=== PATIENT | female | born 2000 | race Caucasian/White ===

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

== ENCOUNTER → 2022-07-25 | Outpatient (CLI) | payer MEDICAID ==
--- NOTE | 2022-07-25 12:22 | NM ---
EXAMINATION TYPE: SC gastric emptying static DATE OF EXAM: 07/25/2022 COMPARISON: Prior nuclear medicine gastric emptying study March 18, 2021 HISTORY: Gastroparesis. Following administration of 1.7 mCi Tc 99m Sulfur Colloid with 4 OUNCES OF EGGS, 1 PIECE OF TOAST WIT H JELLY & 4 OUNCES OF WATER, projection images of the abdomen were obtained 10 minutes post ingestion . Patient Emptying Values 1 Hour 15 % 2 Hours 55 % 3 Hours 86 % 4 Hours 97 % IMPRESSION: No scintigraphic evidence for gastroparesis. No significant change from prior. Gastric emptying normal percentage values: 30 minutes: <70% of retention (> 30% emptying) suggests abnormally fast emptying. 60 minutes: <90% retention (>10% emptying) is normal; less than 30% retention (>70% emptying) suggest s abnormally rapid emptying. 90 minutes: <65% retention (> 35% emptying) is normal. 120 minutes: <60% retention (> 40% emptying) is normal. 180 minutes: <30% retention (> 70% emptying) is normal. Gastric emptying T-1/2: Solid: The normal range is 60-105 minutes Liquid only: Normal range is 10-45 minutes. Liquid only-children: At 60 minutes, normal range is 44-58 % . Liquid only-infants: At 60 minutes, normal range is 32-64 %. Additional references: Gastric Emptying Scintigraphy http://[email or web address]
== END | disposition home or self-care (01) ==
LOC: RADNMMAIN 06:46
PROVIDERS: ATTEND Internal Medicine
DX: R10.84 Generalized abdominal pain (principal); K31.84 Gastroparesis
CPT/HCPCS: 78264; A9541

== ENCOUNTER 2023-07-11 17:39 | Inpatient (IN) | payer MEDICAID ==
[2023-07-11] MEDS ORDERED: METOCLOPRAMIDE 5 MG/ML 2 ML VIAL IVP STA (18:36)
[2023-07-11] MEDS ORDERED: SODIUM CHLORIDE 0.9% 1,000 ML IV STA (18:36)
--- NOTE | 2023-07-11 18:39 | ED ---
Headache HPI - General Source: patient, family, RN notes reviewed Mode of arrival: ambulatory Limitations: no limitations <Delilah Martin - Last Filed: 07/11/23 22:08> <Beni Abdullahi - Last Filed: 07/11/23 22:15> - General Chief Complaint: Headache Stated Complaint: headache,vomiting Time Seen by Provider: 07/11/23 18:22 - History of Present Illness Initial Comments: Patient is a 23-year-old female presented ER with chief complaint of headache. Patient has a past medical history significant for small fiber neuropathy for which she's just started IVIG infusions. Patient states her first loading dose of IVIG was yesterday. Her second loading dose was today. Patient states after her first treatment she had chest pain that quickly resovled. She states at about 1:30 this morning she started having this headache. She does endorse blurred vision and neck tenderness. She also states she is nauseous but denies any vomiting. Patient states she is also having mild abdominal pain but her abdomen is always hurting her. Patient denies any fevers, chills, night sweats, short of breath, chest pain. (Delilah Martin) - Related Data Home Medications Medication Instructions Recorded Confirmed medroxyPROGESTERone [Depo-Provera] 150 mg IM Q84D 06/25/20 07/11/23 Ivabradine HCl [Corlanor] 5 mg PO BID 01/15/23 07/11/23 Montelukast Sodium 10 mg PO HS 01/15/23 07/11/23 Omeprazole [PriLOSEC] 20 mg PO BID 01/15/23 07/11/23 amLODIPine BESYLATE 2.5 mg PO HS 01/15/23 07/11/23 Copper 2mg Tablet 1 tab PO DAILY 07/11/23 07/11/23 Cyanocobalamin (Vitamin B-12) 1,000 mcg PO DAILY 07/11/23 07/11/23 [Vitamin B-12] OXcarbazepine [Trileptal] 150 mg PO DAILY 07/11/23 07/11/23 Allergies Allergy/AdvReac Type Severity Reaction Status Date / Time adhesive tape Allergy Rash/Hives Verified 07/11/23 22:09 Review of Systems ROS Other: All systems not noted in ROS Statement are negative. <Delilah Martin - Last Filed: 07/11/23 22:08> ROS Other: All systems not noted in ROS Statement are negative. <Beni Abdullahi Trevon - Last Filed: 07/11/23 22:15> ROS Statement: Those systems with pertinent positive or pertinent negative responses have been documented in the HPI. Past Medical History Past Medical History: No Reported History Additional Past Medical History / Comment(s): OVARIAN CYST, RECENT RAPID HEART RATE, SOB, CHEST PAIN. POTS SYNDROME, fibroneuropathy History of Any Multi-Drug Resistant Organisms: None Reported Past Surgical History: Adenoidectomy, Orthopedic Surgery Additional Past Surgical History / Comment(s): left knee SX Past Anesthesia/Blood Transfusion Reactions: No Reported Reaction, Family History of Problems w/ Anesthesia Additional Past Anesthesia/Blood Transfusion Reaction / Comment(s): MOM HAS PONV Past Psychological History: No Psychological Hx Reported Smoking Status: Never smoker - Past Family History Mother Family Medical History: No Reported History Additional Family Medical History / Comment(s): Hishimotos Father Family Medical History: Diabetes Mellitus, Hypertension <Delilah Martin - Last Filed: 07/11/23 22:08> General Exam Limitations: no limitations General appearance: alert, in no apparent distress Head exam: Present: atraumatic, normocephalic, normal inspection Eye exam: Present: normal appearance, PERRL, EOMI. Absent: scleral icterus, conjunctival injection, periorbital swelling Pupils: Present: normal accommodation ENT exam: Present: normal exam, mucous membranes moist, TM's normal bilaterally Neck exam: Present: normal inspection, tenderness Respiratory exam: Present: normal lung sounds bilaterally. Absent: respiratory distress, wheezes, rales, rhonchi, stridor Cardiovascular Exam: Present: regular rate, normal rhythm, normal heart sounds. Absent: systolic murmur, diastolic murmur, rubs, gallop, clicks GI/Abdominal exam: Present: soft, normal bowel sounds. Absent: distended, tenderness, guarding, rebound, rigid Neurological exam: Present: alert, oriented X3, CN II-XII intact Psychiatric exam: Present: normal affect, normal mood Skin exam: Present: warm, dry, intact, normal color. Absent: rash <Delilah Martin - Last Filed: 07/11/23 22:08> Course <Beni Abdullahi - Last Filed: 07/11/23 22:15> Vital Signs 07/11/23 07/11/23 18:16 21:00 Temperature 98.3 F Pulse Rate 120 H 92 Respiratory 22 16 Rate Blood Pressure 120/77 108/58 O2 Sat by Pulse 98 97 Oximetry - Reevaluation(s) Reevaluation #1: 07/11/23 22:15 Patient evaluated, continues to have headache although she is well-appearing with stable vitals. She will be admitted for IV hydration and symptom control. Case discussed with Dr. Clifford who will admit. (Beni Abdullahi) Medical Decision Making - Lab Data Result diagrams: 07/11/23 18:53 07/11/23 18:53 <Delilah Martin - Last Filed: 07/11/23 22:08> - Lab Data Result diagrams: 07/11/23 18:53 07/11/23 18:53 <Beni Abdullahi - Last Filed: 07/11/23 22:15> - Medical Decision Making Was pt. sent in by a medical professional or institution (, [facility], TRANSPORT ENGINEER, urgent care, hospital, or penitentiary...) When possible be specific @ -[No] Did you speak to anyone other than the patient for history (EMS, parent, family, police, friend...)? What history was obtained from this source @ -[Family Did you review nursing and triage notes (agree or disagree)? Why? @ -[I reviewed and agree with nursing and triage notes] Were old charts reviewed (outside hosp., previous admission, EMS record, old EKG, old radiological studies, urgent care reports/EKG's, penitentiary records)? Report findings @ -[No old charts were reviewed] Differential Diagnosis (chest pain, altered mental status, abdominal pain women, abdominal pain men, vaginal bleeding, weakness, fever, dyspnea, syncope, headache, dizziness, GI bleed, back pain, seizure, CVA, palpatations, mental health, musculoskeletal)? @ -[Differential Headache:Migraine, tension, cluster, carbon monoxide, central venous thrombosis, pension karma temporal arteritis, acute closure glaucoma, intercranial hemorrhage, mastoiditis, sinusitis, head injury, this is not meant to be an all-inclusive list. EKG interpreted by me (3pts min.). @ -[None X-rays interpreted by me (1pt min.). @ -[None done] CT interpreted by me (1pt min.). @ -[None done] U/S interpreted by me (1pt. min.). @ -[None done] What testing was considered but not performed or refused? (CT, X-rays, U/S, labs)? Why? @ -[None] What meds were considered but not given or refused? Why? @ -[None] Did you discuss the management of the patient with other professionals (professionals i.e. Dr., PA, TRANSPORT ENGINEER, lab, RT, psych nurse, social media specialist, vector control assistant, teacher, promotions officer, caser in)? Give summary @ -[Yes, [facility] for admission. Was smoking cessation discussed for >3mins.? @ -[No] Was critical care preformed (if so, how long)? @ -[No] Were there social determinants of health that impacted care today? How? (Homelessness, low income, unemployed, alcoholism, drug addiction, transportation, low edu. Level, literacy, decrease access to med. care, snf, rehab)? @ -[No] Was there de-escalation of care discussed even if they declined (Discuss DNR or withdrawal of care, Hospice)? DNR status @ -[No] What co-morbidities impacted this encounter? (DM, HTN, Smoking, COPD, CAD, Cancer, CVA, ARF, Chemo, Hep., AIDS, mental health diagnosis, sleep apnea, morbid obesity)? @ -[Small fiber neuropathy on IVIG infusions Was patient admitted / discharged? Hospital course, mention meds given and route, prescriptions, significant lab abnormalities, going to OR and other pertinent info. @ -[Admitted. Patient's vital signs remained stable. Patient received 1 L of IV fluids and 5 mg of IV Reglan for symptom control prior to labs. Laboratory studies were unimpressive. UA was unimpressive with a negative hCG. Patient then received IV Toradol. Patient states the Toradol not touch her pain is still rating it a 9 out of 10. Patient then received 0.5 IV Dilaudid and IV Zofran. Patient states that Dilaudid helped for about 30 seconds and then pain returned. Dr. Abdullahi discussed with the patient options of disposition. Patient decided for admission for pain control and IV fluids. Patient will be admitted to observation for intractable headache. Undiagnosed new problem with uncertain prognosis? @ -[No] Drug Therapy requiring intensive monitoring for toxicity (Heparin, Nitro, Insulin, Cardizem)? @ -[No] Were any procedures done? @ -[No] Diagnosis/symptom? @ -[Intractable headache Acute, or Chronic, or Acute on Chronic? @ -[Acute] Uncomplicated (without systemic symptoms) or Complicated (systemic symptoms)? @ -[Uncomplicated] Side effects of treatment? @ -[No] Exacerbation, Progression, or Severe Exacerbation? @ -[No] Poses a threat to life or bodily function? How? (Chest pain, USA, MS, pneumonia, PE, COPD, DKA, ARF, appy, cholecystitis, CVA, Diverticulitis, Homicidal, Suicidal, threat to staff... and all critical care pts) @ -[No] (Delilah Martin) - Lab Data Lab Results 07/11/23 07/11/23 07/11/23 Range/Units 18:53 18:53 18:53 WBC 11.3 H (3.8-10.6) k/uL RBC 4.84 (3.80-5.40) m/uL Hgb 14.5 (11.4-16.0) gm/dL Hct 43.3 (34.0-46.0) % MCV 89.6 (80.0-100.0) fL MCH 30.1 (25.0-35.0) pg MCHC 33.6 (31.0-37.0) g/dL RDW 12.6 (11.5-15.5) % Plt Count 255 (150-450) k/uL MPV 7.8 Sodium 144 (137-145) mmol/L Potassium 4.2 (3.5-5.1) mmol/L Chloride 111 H (98-107) mmol/L Carbon Dioxide 20 L (22-30) mmol/L Anion Gap 13 mmol/L BUN 12 (7-17) mg/dL Creatinine 0.79 (0.52-1.04) mg/dL Est GFR (CKD-EPI)AfAm >90 (>60 ml/min/1.73 sqM) Est GFR (CKD-EPI)NonAf >90 (>60 ml/min/1.73 sqM) Glucose 125 H (74-99) mg/dL Calcium 10.0 (8.4-10.2) mg/dL Total Bilirubin 1.1 (0.2-1.3) mg/dL AST 28 (14-36) U/L ALT 25 (4-34) U/L Alkaline Phosphatase 71 (38-126) U/L Total Protein 11.1 H (6.3-8.2) g/dL Albumin 4.9 (3.5-5.0) g/dL Urine Color Urine Appearance (Clear) Urine pH (5.0-8.0) Ur Specific [place] (1.001-1.035) Urine Protein (Negative) Urine Glucose (UA) (Negative) Urine Ketones (Negative) Urine Blood (Negative) Urine Nitrite (Negative) Urine Bilirubin (Negative) Urine Urobilinogen (<2.0) mg/dL Ur Leukocyte Esterase (Negative) Urine HCG, Qual (Not Detectd) Influenza Type A (PCR) Not Detected (Not Detectd) Influenza Type B (PCR) Not Detected (Not Detectd) RSV (PCR) Not Detected (Not Detectd) SARS-CoV-2 (PCR) Not Detected (Not Detectd) 07/11/23 07/11/23 Range/Units 18:57 18:57 WBC (3.8-10.6) k/uL RBC (3.80-5.40) m/uL Hgb (11.4-16.0) gm/dL Hct (34.0-46.0) % MCV (80.0-100.0) fL MCH (25.0-35.0) pg MCHC (31.0-37.0) g/dL RDW (11.5-15.5) % Plt Count (150-450) k/uL MPV Sodium (137-145) mmol/L Potassium (3.5-5.1) mmol/L Chloride (98-107) mmol/L Carbon Dioxide (22-30) mmol/L Anion Gap mmol/L BUN (7-17) mg/dL Creatinine (0.52-1.04) mg/dL Est GFR (CKD-EPI)AfAm (>60 ml/min/1.73 sqM) Est GFR (CKD-EPI)NonAf (>60 ml/min/1.73 sqM) Glucose (74-99) mg/dL Calcium (8.4-10.2) mg/dL Total Bilirubin (0.2-1.3) mg/dL AST (14-36) U/L ALT (4-34) U/L Alkaline Phosphatase (38-126) U/L Total Protein (6.3-8.2) g/dL Albumin (3.5-5.0) g/dL Urine Color Yellow Urine Appearance Clear (Clear) Urine pH 6.0 (5.0-8.0) Ur Specific [place] 1.031 (1.001-1.035) Urine Protein Trace H (Negative) Urine Glucose (UA) Negative (Negative) Urine Ketones Negative (Negative) Urine Blood Negative (Negative) Urine Nitrite Negative (Negative) Urine Bilirubin Negative (Negative) Urine Urobilinogen <2.0 (<2.0) mg/dL Ur Leukocyte Esterase Negative (Negative) Urine HCG, Qual Not Detected (Not Detectd) Influenza Type A (PCR) (Not Detectd) Influenza Type B (PCR) (Not Detectd) RSV (PCR) (Not Detectd) SARS-CoV-2 (PCR) (Not Detectd) Disposition Time of Disposition: 22:06 <Delilah Martin - Last Filed: 07/11/23 22:08> <Beni Abdullahi - Last Filed: 07/11/23 22:15> Clinical Impression: Intractable headache Disposition: ADMITTED IP TO THIS [facility] Condition: Stable Referrals: Alber Mohamud MD [Primary Care Provider] - 1-2 days
[2023-07-11 19:06] LABS: HCT 43.3 % (34.0-46.0); HGB 14.5 gm/dL (11.4-16.0); MCH 30.1 pg (25.0-35.0); MCHC 33.6 g/dL (31.0-37.0); MCV 89.6 fL (80.0-100.0); Mean Platelet Volume 7.8; Platelet Count 255 k/uL (150-450); RBC 4.84 m/uL (3.80-5.40); RDW 12.6 % (11.5-15.5); WBC 11.3 k/uL (3.8-10.6)
[2023-07-11 19:21] LABS: ALT 25 U/L (4-34); AST 28 U/L (14-36); African American GFR (CKD) >90 (>60 ml/min/1.73 sqM); Albumin 4.9 g/dL (3.5-5.0); Alkaline Phosphatase 71 U/L (38-126); Anion Gap 13 mmol/L; Blood Urea Nitrogen 12 mg/dL (7-17); Carbon Dioxide 20 mmol/L (22-30); Chloride 111 mmol/L (98-107); Glucose 125 mg/dL (74-99); Non-African American GFR(CKD) >90 (>60 ml/min/1.73 sqM); Potassium 4.2 mmol/L (3.5-5.1); Sodium 144 mmol/L (137-145); Total Bilirubin 1.1 mg/dL (0.2-1.3)
[2023-07-11 19:30] LABS: Appearance,Urine Clear (Clear); Bilirubin,Urine Negative (Negative); Blood,Urine Negative (Negative); Color,Urine Yellow; Glucose,Urine (UA) Negative (Negative); Ketones,Urine Negative (Negative); Leukocyte Esterase,Urine Negative (Negative); Nitrite,Urine Negative (Negative); Protein,Urine Trace (Negative); Specific Gravity,Urine 1.031 (1.001-1.035); Urobilinogen,Urine <2.0 mg/dL (<2.0)
[2023-07-11] MEDS ORDERED: KETOROLAC 15 MG/ML 1 ML VIAL IVP STA ×2 (19:32→19:46)
[2023-07-11 19:45] LABS: Total Protein 11.1 g/dL (6.3-8.2)
[2023-07-11] MEDS ORDERED: HYDROmorphone 0.5 MG/0.5 ML SYRINGE IVP STA (20:53)
[2023-07-11] MEDS ORDERED: ONDANSETRON 4 MG/2 ML VIAL IVP STA (20:53)
[2023-07-11] MEDS ORDERED: ONDANSETRON 4 MG/2 ML VIAL IVP PRN (21:57)
[2023-07-11] MEDS ORDERED: NALOXONE 0.4 MG/ML 1 ML VIAL IV PRN (21:57)
[2023-07-11] MEDS: SODIUM CHLORIDE 0.9% 1,000 ML IV SCH (22:41)
[2023-07-11] MEDS: NON FORMULARY DRUG (Ivabradine Hcl [Corlanor] 5 MG Tablet) PO SCH (23:49)
[2023-07-11] MEDS: PANTOPRAZOLE 40 MG TABLET PO SCH (23:49)
[2023-07-11] MEDS: MONTELUKAST 10 MG TAB PO SCH (23:49)
[2023-07-11] MEDS: HYDROmorphone 0.5 MG/0.5 ML SYRINGE IVP PRN (23:58)
[2023-07-12] MEDS: amLODIPine 2.5 MG TAB PO SCH ×2 (00:30→20:50)
[2023-07-12] MEDS: HYDROmorphone 0.5 MG/0.5 ML SYRINGE IVP PRN ×3 (03:04→11:41)
[2023-07-12] MEDS: CYANOCOBALAMIN 500 MCG TAB PO SCH (08:30)
[2023-07-12] MEDS: PANTOPRAZOLE 40 MG TABLET PO SCH ×2 (08:30→20:49)
[2023-07-12] MEDS: NON FORMULARY DRUG (Ivabradine Hcl [Corlanor] 5 MG Tablet) PO SCH ×2 (08:31→20:51)
[2023-07-12] MEDS: OXcarbazepine 150 MG TAB PO SCH (08:31)
[2023-07-12] MEDS: SODIUM CHLORIDE 0.9% 1,000 ML IV SCH ×3 (08:33→18:17)
[2023-07-12] MEDS ORDERED: traMADol 50 MG TAB PO PRN (08:50)
[2023-07-12] MEDS ORDERED: NALOXONE 0.4 MG/ML 1 ML VIAL IV PRN (08:50)
[2023-07-12] MEDS ORDERED: ACETAMINOPHEN TAB 325 MG TAB PO PRN (08:50)
[2023-07-12] MEDS ORDERED: COPPER 2 MG PO SCH (09:00)
[2023-07-12] MEDS ORDERED: diphenhydrAMINE 50 MG/ML 1 ML VIAL IVP STA (09:43)
--- NOTE | 2023-07-12 10:49 | CT ---
EXAMINATION TYPE: CT brain wo con CT DLP: mGycm, Automated exposure control for dose reduction was used. DATE OF EXAM: 07/12/2023 10:38 AM COMPARISON: None. CLINICAL INDICATION:Female, 23 years old with history of intractable headache. TECHNIQUE: Brain: Axial CT images of the brain were obtained with coronal and sagittal reformats created and rev iewed. Contrast used: None. Oral contrast used: None. FINDINGS: Brain: Extra-axial spaces: No abnormal extra-axial fluid collections. Ventricular system: Within normal limits Cerebral parenchyma: No acute intraparenchymal hemorrhage or mass effect. The khoury-white junction is well differentiated. Cerebellum: Unremarkable. Mass effect: No evidence of midline shift. Intracranial vasculature: unremarkable Soft tissues: Normal. Calvarium/osseous structures: No depressed skull fracture. Paranasal sinuses and mastoid air cells: Mild scattered paranasal sinus disease. Visualized orbits: Orbital contents are intact. IMPRESSION: No acute intracranial process.
--- NOTE | 2023-07-12 10:53 | CT ---
EXAMINATION TYPE: CT angio head neck CT DLP: mGycm, Automated exposure control for dose reduction was used. DATE OF EXAM: 07/12/2023 10:39 AM COMPARISON: None.. CLINICAL INDICATION:Female, 23 years old with history of dissection rule out; PHH, headache TECHNIQUE: Axially acquired helical CT angiogram of the head and neck was obtained with contrast. Axi al images are supplemented with 3D reconstructions which were post-processed at an independent workst atmission hospital. NASCET criteria used. Contrast used:65 mL of Isovue 300 with IV Contrast, Oral contrast used: None. FINDINGS: CTA HEAD: No evidence of acute intracranial hemorrhage, mass effect, or midline shift. The ventricles, sulci, a nd cisterns are unremarkable. The visualized portions of the internal carotid arteries, middle cerebral arteries, anterior cerebral arteries, and posterior cerebral arteries are patent. The basilar and vertebral arteries are patent. CTA NECK: Right Carotid System: The common carotid artery and external carotid artery are patent. The carotid bifurcation demonstrate s no evidence of hemodynamically significant stenosis. The remaining portions of the internal carotid artery demonstrate normal size without significant narrowing. Left Carotid System: The common carotid artery and external carotid artery are patent. The carotid bifurcation demonstrate s no evidence of hemodynamically significant stenosis. The remaining portions of the internal carotid artery demonstrate normal size without significant narrowing. Vertebral arteries are patent without evidence hemodynamically significant stenosis. There is a three-vessel aortic arch. The origins of the great vessels are patent. No evidence of hemo dynamically significant stenosis. Upper thorax: Unremarkable. IMPRESSION: 1. No evidence of dissection of the cervical internal carotid arteries or vertebral arteries or any e vidence of significant stenosis at the carotid bifurcations. 2. No evidence of intracranial high-grade stenosis or intracranial aneurysm.
[2023-07-12 12:14] LABS: HCT 38.1 % (34.0-46.0); HGB 12.8 gm/dL (11.4-16.0); MCH 30.9 pg (25.0-35.0); MCHC 33.7 g/dL (31.0-37.0); MCV 91.7 fL (80.0-100.0); Mean Platelet Volume 7.4; Platelet Count 205 k/uL (150-450); RBC 4.16 m/uL (3.80-5.40); RDW 12.5 % (11.5-15.5); WBC 7.7 k/uL (3.8-10.6)
[2023-07-12 12:26] LABS: African American GFR (CKD) >90 (>60 ml/min/1.73 sqM); Anion Gap 11 mmol/L; Blood Urea Nitrogen 5 mg/dL (7-17); Calcium 8.9 mg/dL (8.4-10.2); Carbon Dioxide 19 mmol/L (22-30); Chloride 111 mmol/L (98-107); Glucose 89 mg/dL (74-99); Non-African American GFR(CKD) >90 (>60 ml/min/1.73 sqM); Potassium 3.8 mmol/L (3.5-5.1); Sodium 141 mmol/L (137-145)
--- NOTE | 2023-07-12 12:57 | P.HPIM ---
History of Present Illness H&P Date: 07/12/23 Chief Complaint: Intractable headache * 23-year-old patient with past medical history significant for IBSC, [place], regional pain syndrome, history of gastritis, history of small fiber neuropathy, on IVIG presented to the emergency department with complains of headache that started earlier in the day after patient completed IVIG infusion. This was her second dose of IVIG that was given on 07/11/23. After infusion patient's stated she had chest pain that quickly improved. However later in the day patient started having intractable headache with blurred vision and neck stiffness. This was accompanied with nausea without vomiting. * Workup initiated in ER included basic metabolic panel, which showed WBC count of 11.3, serum chemistry sodium 144 potassium 4.2 carbon dioxide 20 blood glucose 122 and total protein of 11.1, urine protein trace, * Patient tested negative for influenza, [place] virus and RSV * Patient was given a dose of Toradol, Zofran, Reglan * Patient admitted to medical floor for symptom management REVIEW OF SYSTEMS: Headache, nausea, neck pain CONSTITUTIONAL: No fever, no malaise, no fatigue. HEENT: No recent visual problems or hearing problems. Denied any sore throat. CARDIOVASCULAR: No chest pain, orthopnea, PND, no palpitations, no syncope. PULMONARY: No shortness of breath, no cough, no hemoptysis. GASTROINTESTINAL: No diarrhea, no nausea, no vomiting, no abdominal pain. NEUROLOGICAL: No headaches, no weakness, no numbness. HEMATOLOGICAL: Headache, nausea, neck pain GENITOURINARY: Denies any burning micturition, frequency, or urgency. MUSCULOSKELETAL/RHEUMATOLOGICAL: Denies any joint pain, swelling, or any muscle pain. ENDOCRINE: Denies any polyuria or polydipsia. PHYSICAL EXAMINATION: GENERAL: The patient is alert and oriented x3, not in any acute distress. HEENT: Pupils are round and equally reacting to light. EOMI. CARDIOVASCULAR: S1 and S2 present. No murmurs, rubs, or gallops. PULMONARY: Chest is clear to auscultation, no wheezing or crackles. ABDOMEN: Soft, nontender, nondistended, normoactive bowel sounds. No palpable organomegaly. MUSCULOSKELETAL: No joint swelling or deformity. EXTREMITIES: No cyanosis, clubbing, or pedal edema. NEUROLOGICAL: Gross neurological examination did not reveal any focal deficits. Past Medical History Past Medical History: No Reported History Additional Past Medical History / Comment(s): OVARIAN CYST, RECENT RAPID HEART RATE, SOB, CHEST PAIN. POTS SYNDROME, fibroneuropathy, IVIG tx newly started 07/10/23 History of Any Multi-Drug Resistant Organisms: None Reported Past Surgical History: Adenoidectomy, Cholecystectomy, Orthopedic Surgery Additional Past Surgical History / Comment(s): left knee SX Past Anesthesia/Blood Transfusion Reactions: No Reported Reaction, Family History of Problems w/ Anesthesia Additional Past Anesthesia/Blood Transfusion Reaction / Comment(s): MOM HAS PONV Past Psychological History: Anxiety Smoking Status: Never smoker Past Alcohol Use History: None Reported Past Drug Use History: None Reported - Past Family History Mother Family Medical History: No Reported History Additional Family Medical History / Comment(s): Hishimotos Father Family Medical History: Diabetes Mellitus, Hypertension Medications and Allergies Home Medications Medication Instructions Recorded Confirmed Type medroxyPROGESTERone [Depo-Provera] 150 mg IM Q84D 06/25/20 07/11/23 History Ivabradine HCl [Corlanor] 5 mg PO BID 01/15/23 07/11/23 History Montelukast Sodium 10 mg PO HS 01/15/23 07/11/23 History Omeprazole [PriLOSEC] 20 mg PO BID 01/15/23 07/11/23 History amLODIPine BESYLATE 2.5 mg PO HS 01/15/23 07/11/23 History Copper 2mg Tablet 1 tab PO DAILY 07/11/23 07/11/23 History Cyanocobalamin (Vitamin B-12) 1,000 mcg PO DAILY 07/11/23 07/11/23 History [Vitamin B-12] OXcarbazepine [Trileptal] 150 mg PO DAILY 07/11/23 07/11/23 History Allergies Allergy/AdvReac Type Severity Reaction Status Date / Time adhesive tape Allergy Rash/Hives Verified 07/11/23 22:09 Physical Exam Vitals: Vital Signs Temp Pulse Pulse Resp BP BP Pulse Ox 07/12/23 07:00 98.3 F 83 16 99/65 96 07/12/23 03:37 98.9 F 99 16 106/65 97 07/11/23 23:16 98.2 F 83 15 114/69 98 07/11/23 22:55 97.3 F L 07/11/23 22:00 70 16 108/58 07/11/23 21:00 92 16 108/58 97 07/11/23 19:00 116/75 07/11/23 18:38 98 07/11/23 18:16 98.3 F 120 H 22 120/77 98 Intake and Output 07/11/23 07/12/23 07/12/23 22:59 06:59 14:59 Other: # Voids 1 Weight 56.699 kg 56.699 kg Results CBC & Chem 7: 07/12/23 11:43 07/12/23 11:43 Labs: Abnormal Lab Results - Last 24 Hours (Table) 07/11/23 07/11/23 07/11/23 Range/Units 18:53 18:53 18:57 WBC 11.3 H (3.8-10.6) k/uL Chloride 111 H (98-107) mmol/L Carbon Dioxide 20 L (22-30) mmol/L Glucose 125 H (74-99) mg/dL Total Protein 11.1 H (6.3-8.2) g/dL Urine Protein Trace H (Negative) Thrombosis Risk Factor Assmnt - DVT/VTE Prophylaxis DVT/VTE Prophylaxis: Mechanical Prophylaxis ordered - Choose All That Apply Any of the Below Risk Factors Present?: Yes Each Factor Represents 1 point: Oral contraceptives or hormone replacement therapy Other Risk Factors: No Other congenital or acquired thrombophilia - If yes, enter type in comment: No Thrombosis Risk Factor Assessment Total Risk Factor Score: 1 Thrombosis Risk Factor Assessment Level: Low Risk Assessment and Plan Assessment: Assessment and plan History of small fiber neuropathy on IVIG Intractable headache post IVIG infusion Hypertension History of pots History of IBS History of depression * In regards to intractable headache after IVIG, continue with symptomatic management, if no improvement we'll get CT head, CT angina head and neck, neurology consulted * In regards to hypertension continue amlodipine * In regards to history of depression continue Trileptal * Follow-up CBC, CRP, ESR basic metabolic panel ordered * CODE STATUS is full code
[2023-07-12] MEDS: BUTALB/APAP/CAFF 50-325-40MG TAB PO PRN ×2 (13:23→20:49)
[2023-07-12] MEDS: diphenhydrAMINE 25 MG CAP PO PRN ×2 (13:32→20:49)
[2023-07-12] MEDS: ONDANSETRON 4 MG/2 ML VIAL IVP PRN (15:30)
[2023-07-12] MEDS: MORPHINE SULFATE 2 MG/ML SYRINGE IVP PRN (18:09)
[2023-07-12] MEDS: HEPARIN SODIUM,PORCINE 5,000 UNIT/ML 1 ML VIAL SQ SCH (20:48)
[2023-07-12] MEDS: MONTELUKAST 10 MG TAB PO SCH (20:50)
[2023-07-13] MEDS: SODIUM CHLORIDE 0.9% 1,000 ML IV SCH ×2 (03:50→09:08)
[2023-07-13] MEDS: ONDANSETRON 4 MG/2 ML VIAL IVP PRN ×2 (03:56→14:03)
[2023-07-13] MEDS: MORPHINE SULFATE 2 MG/ML SYRINGE IVP PRN ×2 (03:56→09:30)
[2023-07-13 07:29] LABS: Erythrocyte Sedimentation Rate 38 mm/Hr (0-20)
[2023-07-13] MEDS: CYANOCOBALAMIN 500 MCG TAB PO SCH (09:10)
[2023-07-13] MEDS: HEPARIN SODIUM,PORCINE 5,000 UNIT/ML 1 ML VIAL SQ SCH ×3 (09:11→20:35)
[2023-07-13] MEDS: PANTOPRAZOLE 40 MG TABLET PO SCH ×2 (09:11→20:33)
[2023-07-13] MEDS: OXcarbazepine 150 MG TAB PO SCH (09:11)
[2023-07-13] MEDS: NON FORMULARY DRUG (Ivabradine Hcl [Corlanor] 5 MG Tablet) PO SCH ×2 (09:11→20:34)
--- NOTE | 2023-07-13 09:33 | P.CNNES ---
History of Present Illness Consult date: 07/12/23 Requesting physician: Fortunato Gomez Reason for Consult: intractable headache post IVIG History of Present Illness: Patient is a 23-year-old female who has been diagnosed with small fiber neuropathy by a neurologist Dr. Yang at [facility], for which she was receiving the loading dose of IVIG 120 g over a period of 3 days. She received the first dose on Thursday, and the second dose on Thursday, which is yes terday. She did fine during the first dose of treatment. That night between Thursday and Thursday, she woke in the middle of night with a bad headache, neck stiffness, nausea, felt will pass out. It was a 10/10 headache and she started crying. She took Tylenol/Motrin and felt a little better before her next infusion was started on Thursday. She did relatively fine during the transfusion, which itself lasted for about 3-1/2 hours. About 4 hours after completion of infusion, the headache came back, and got worse as the day went on. The headache involves the back of the head, sides and the neck with radiation to the back with some neck stiffness. She got concerned, therefore decided to come to the ER and arrived yesterday at 5:39 PM. Vital signs arrival blood pressure 120/77, pulse rate 120, temperature 98.3. She has been afebrile. Blood tests shows WBC 11.3, which has come down to 7.7. Hemoglobin and platelets are normal. Electrolytes, renal functions are normal, hepatic panel normal. CRP is elevated 11.1 and ESR 38. UA negative, influenza, RSV and coronal virus PCR negative. CT head was performed, which showed no acute intracranial process. There is mild scattered paranasal sinus disease. I personally reviewed CT head, and agree with the findings. Patient so far has received Dilaudid, Toradol, which did not help. She tried Fioricet 1 tablet, which did not work. She is now scheduled for tramadol. At present she complains of headache 9/10, with photophobia, phonophobia, with nausea but no vomiting. The back and side of the head hurts. It is a throbbing headache. Patient denies diabetes. Patient has developed redness, swelling in her knees, burning tingling and numbness in the knees, feet and toes. The symptoms have been present for "a long time". At first she was considered as complex regional pain syndrome. She started seeing a pain specialist, who referred her to a neurologist, and after skin biopsy, that was positive, she was also found to have some antibodies, which she describes as Plexin D1 antibodies therefore was diagnosed with small fiber neuropathy. She has IgM vs TS-HDS. Her EMG was normal, which is expected with small fiber neuropathy. Patient has history of periodic headaches, which appears migraines that occurs about once a week involves the bifrontal temporal region, with light sensitivity with without a noise sensitivity. She denies any nausea vomiting. The migraine is about 3-4/10, goes away after she takes Tylenol or Motrin within 2 hours. These headaches were never as bad as she experienced in the last 2 days. Patient is currently on Depo shot, and the last one she received was in May 2023. She also has been diagnosed with pots syndrome. Patient denies any tobacco use, drinks alcohol about once or twice a month, not a heavy drinker. No other substance abuse. Review of Systems Constitutional: Denies chills (Feels warm), Denies fever Eyes: bilateral blurred vision, denies diplopia, denies pain Ears: deny: decreased hearing, ear discharge Ears, nose, mouth and throat: Reports headache, Reports nasal congestion, Reports sinus pain, Reports sinus pressure Cardiovascular: Reports lightheadedness, Denies chest pain, Denies shortness of breath Respiratory: Denies cough, Denies excessive sputum Gastrointestinal: Reports nausea, Denies abdominal pain, Denies diarrhea, Denies vomiting Genitourinary: Denies dysuria, Denies hematuria, Denies urge incontinence, Denies urgency Musculoskeletal: Reports neck pain, Reports neck stiffness, Denies low back pain Integumentary: Denies pruritus, Denies rash Neurological: Reports as per HPI Psychiatric: Denies anxiety, Denies depression Endocrine: Reports fatigue, Denies weight change Hematologic/Lymphatic: Reports easy bruising, Denies easy bleeding Past Medical History Past Medical History: No Reported History Additional Past Medical History / Comment(s): OVARIAN CYST, RECENT RAPID HEART RATE, SOB, CHEST PAIN. POTS SYNDROME, fibroneuropathy, IVIG tx newly started 07/10/23 History of Any Multi-Drug Resistant Organisms: None Reported Past Surgical History: Adenoidectomy, Cholecystectomy, Orthopedic Surgery Additional Past Surgical History / Comment(s): left knee SX Past Anesthesia/Blood Transfusion Reactions: No Reported Reaction, Family History of Problems w/ Anesthesia Additional Past Anesthesia/Blood Transfusion Reaction / Comment(s): MOM HAS PONV Past Psychological History: Anxiety Smoking Status: Never smoker Past Alcohol Use History: None Reported Past Drug Use History: None Reported - Past Family History Mother Family Medical History: No Reported History Additional Family Medical History / Comment(s): Hishimotos Father Family Medical History: Diabetes Mellitus, Hypertension Medications and Allergies Home Medications Medication Instructions Recorded Confirmed Type medroxyPROGESTERone [Depo-Provera] 150 mg IM Q84D 06/25/20 07/11/23 History Ivabradine HCl [Corlanor] 5 mg PO BID 01/15/23 07/11/23 History Montelukast Sodium 10 mg PO HS 01/15/23 07/11/23 History Omeprazole [PriLOSEC] 20 mg PO BID 01/15/23 07/11/23 History amLODIPine BESYLATE 2.5 mg PO HS 01/15/23 07/11/23 History Copper 2mg Tablet 1 tab PO DAILY 07/11/23 07/11/23 History Cyanocobalamin (Vitamin B-12) 1,000 mcg PO DAILY 07/11/23 07/11/23 History [Vitamin B-12] OXcarbazepine [Trileptal] 150 mg PO DAILY 07/11/23 07/11/23 History Allergies Allergy/AdvReac Type Severity Reaction Status Date / Time adhesive tape Allergy Rash/Hives Verified 07/11/23 22:09 Physical Examination - Vital Signs Vital Signs: Vital Signs Temp Pulse Pulse Resp BP BP Pulse Ox 07/12/23 15:00 98.1 F 101 H 16 121/79 100 07/12/23 14:00 83 16 07/12/23 08:00 83 16 07/12/23 07:00 98.3 F 83 16 99/65 96 07/12/23 03:37 98.9 F 99 16 106/65 97 07/11/23 23:16 98.2 F 83 15 114/69 98 07/11/23 22:55 97.3 F L 07/11/23 22:00 70 16 108/58 07/11/23 21:00 92 16 108/58 97 07/11/23 19:00 116/75 07/11/23 18:38 98 07/11/23 18:16 98.3 F 120 H 22 120/77 98 Intake and Output 07/12/23 07/12/23 07/12/23 06:59 14:59 22:59 Other: Voiding Method Toilet # Voids 1 3 Weight 56.699 kg Patient is a young female, in no obvious acute distress. She has turned down the lights of the room. Patient is alert awake oriented to time place and person. Speech and language functions are normal. Patient can name and repeat very well. No aphasia or dysarthria. Attention, concentration and fund of knowledge is adequate. On cranial nerve examination, pupils are equal, round and reacting to light, visual llanos are full on confrontation, with no neglect on double simultaneous stimulation. Extraocular muscles are intact with no nystagmus. Face is symmetric, tongue protrudes to the midline. Palatal elevation and sensation normal, hearing and shoulder shrug normal, facial sensation normal. On muscle strength testing, there is no pronator drift and the strength is normal in arms and legs distally and proximally. Deep tendon reflexes are symmetric 1+ at the biceps, 1 brachioradialis, 1+ at the knees, 1 at ankles and plantars downgoing bilaterally. Sensory to touch is equal with no neglect on double simultaneous stimulation. Cerebellar function showed no ataxia for [id number] testing. No dysdiadochokinesia. No ataxia for nyvv-iz-[id number] testing on either side. Tone and bulk of muscles normal. Gait deferred.. On general examination, there is no carotid bruit or murmur, S1-S2 audible. Chest is clear on consultation. Abdomen is soft nontender. No organomegaly, bowel sounds present. Peripheral pulses are present. No peripheral edema. No meningeal signs noted. Neck is supple. Results - Laboratory Findings CBC and BMP: 07/12/23 11:43 07/12/23 11:43 Abnormal Lab Findings: Abnormal Labs 07/11/23 07/11/23 07/11/23 18:53 18:53 18:57 WBC 11.3 H Chloride 111 H Carbon Dioxide 20 L BUN Glucose 125 H C-Reactive Protein Total Protein 11.1 H Urine Protein Trace H 07/12/23 11:43 WBC Chloride 111 H Carbon Dioxide 19 L BUN 5 L Glucose C-Reactive Protein 3.0 H Total Protein Urine Protein Assessment and Plan Assessment: * Cephalalgia, severe, that started post treatment with IVIG. Patient has received 2/3 doses of the loading dose of IVIG, and could not complete the course because of headache. Patient has hypercoagulable state due to being on Depo shot, therefore with addition of another factor of IVIG, there is potential concern for cerebral venous sinus thrombosis. Patient's current examination is nonfocal. Other potential side effect of IVIG is also aseptic meningitis. Patient is afebrile, white cells are normal, no definitive meningeal signs. * Small fiber neuropathy, just started treatment with IVIG * History of POTS syndrome. Plan: * Stat MRV head, to rule out cerebral venous sinus thrombosis. * Start heparin 5000 units subcu every 12 hours for DVT prophylaxis. * Continue pain management. * If the headache resolves, then she will be clear for discharge. * Hold IVIG for now, until patient has followed up with her neurologist. * Neurology will follow. Thank you for the consult
[2023-07-13 09:36] LABS: Appearance,Urine Cloudy (Clear); Bacteria,Urine Rare /hpf; Bilirubin,Urine Negative (Negative); Blood,Urine Large (Negative); Color,Urine Colorless; Glucose,Urine (UA) Negative (Negative); Ketones,Urine Negative (Negative); Leukocyte Esterase,Urine Large (Negative); Mucus,Urine Rare /hpf; Nitrite,Urine Negative (Negative); Protein,Urine Negative (Negative); RBC,Urine 153 /hpf (0-5); Squamous Epithelial Cell,Urine 1 /hpf (0-4); Urobilinogen,Urine <2.0 mg/dL (<2.0); WBC,Urine >182 /hpf (0-5)
[2023-07-13] MEDS: BUTALB/APAP/CAFF 50-325-40MG TAB PO PRN ×3 (11:22→22:57)
--- NOTE | 2023-07-13 11:27 | MR ---
EXAMINATION TYPE: MR venography head wo con DATE OF EXAM: 07/13/2023 10:48 AM CLINICAL INDICATION:Female, 23 years old with history of GARIBAY, r/o sinus thrombus; H, COMPARISON: CTA 07/12/2023 TECHNIQUE: MRV of the brain was performed utilizing two-dimensional [id number] technique. FINDINGS: There is no evidence of venous occlusion or collateral circulation. There is no evidence of sinus th rombosis. There is atrophic appearing transverse sinuses bilaterally. IMPRESSION: No evidence of venous sinus thrombosis.
[2023-07-13] MEDS ORDERED: HYDROmorphone 0.5 MG/0.5 ML SYRINGE IVP PRN (12:44)
[2023-07-13] MEDS: Acetaminophen-Codeine 300-30mg TAB PO PRN ×2 (14:04→20:33)
[2023-07-13] MEDS ORDERED: SUMAtriptan succinate 50 MG TAB PO STA (14:41)
[2023-07-13] MEDS ORDERED: VALPROATE SODIUM 500 MG in SODIUM CHLORIDE 0.9% 100 ML IVPB STA (14:45)
--- NOTE | 2023-07-13 14:53 | P.PN ---
Subjective Progress Note Date: 07/13/23 Patient was seen for a follow-up. Patient continues to have headache which she relates 03/26 right now. Patient received Tylenol 3 recently. Has failed tramadol, Fioricet, Dilaudid and nothing is working. Patient is feeling nauseous for which she received Zofran. No vomiting. She still light and noise sensitive. No focal symptoms. Objective - Vital Signs Vital signs: Vital Signs Temp 98.9 F 07/13/23 07:15 Pulse 70 07/13/23 07:15 Resp 15 07/13/23 07:15 BP 102/65 07/13/23 07:15 Pulse Ox 98 07/13/23 07:15 FiO2 Intake & Output 07/12/23 07/13/23 07/13/23 18:59 06:59 18:59 Intake Total 118 Balance 118 Intake: Oral 118 Other: Voiding Method Toilet Toilet # Voids 3 1 - Exam Patient appears comfortable. Speech and language functions are normal. Face is symmetric. - Labs CBC & Chem 7: 07/12/23 11:43 07/12/23 11:43 Labs: Abnormal Lab Results - Last 24 Hours (Table) 07/12/23 07/13/23 Range/Units 11:43 09:19 ESR 38 H (0-20) mm/Hr Urine Appearance Cloudy H (Clear) Urine Blood Large H (Negative) Ur Leukocyte Esterase Large H (Negative) Urine RBC 153 H (0-5) /hpf Urine WBC >182 H (0-5) /hpf Urine WBC Clumps Few H (None) /hpf Urine Bacteria Rare H (None) /hpf Urine Mucus Rare H (None) /hpf Assessment and Plan Assessment: * Cephalalgia, severe, that started post treatment with IVIG. Patient has received 2/3 doses of the loading dose of IVIG, and could not complete the course because of headache. Patient has hypercoagulable state due to being on Depo shot, therefore with addition of another factor of IVIG, there is potential concern for cerebral venous sinus thrombosis. Patient's current examination is nonfocal. Other potential side effect of IVIG is also aseptic meningitis. Patient is afebrile, white cells are normal, no definitive meningeal signs. * Small fiber neuropathy, just started treatment with IVIG * History of POTS syndrome. Plan: * MRV head normal. No evidence of cerebral venous sinus thrombosis. I personally reviewed MRV, agree with the findings. * Start heparin 5000 units subcu every 12 hours for DVT prophylaxis. * Start Solu-Medrol 125 mg IV push every 6 hours. Depacon 500 mg 1 dose. * If headache persists, will consider Imitrex. * Patient's vitals are stable, hold off on lumbar puncture. * Patient has possible UTI, currently on ceftriaxone. * Hold IVIG for now, until patient has followed up with her neurologist. * If the headache resolves, then she will be clear for discharge.
[2023-07-13] MEDS: methylPREDNISolone SOD SUCCI 125 MG/2 ML VIAL IV SCH ×2 (16:31→22:57)
--- NOTE | 2023-07-13 18:59 | PN ---
PROGRESS NOTE DATE OF SERVICE: 07/13/2023 SUBJECTIVE: This is a 23-year-old woman, who was admitted with intractable headache, which is felt in the occipital area and also the temporal area, mainly on the left side, after IVIG infusion, which is done for small fiber neuropathy diagnosed from [facility]. She is being closely monitored. An MRV done recommended by Dr. Landaverde because of concerns of did not show any evidence of cerebral thrombosis. There is no history of any fever, rigor, or chills. Sedimentation rate and ESR are high. The patient also has some dysuria. PAST MEDICAL HISTORY: Reviewed. REVIEW OF SYSTEMS: Fourteen-point review is negative except as mentioned earlier. CURRENT MEDICATIONS: Reviewed include Rocephin. Doses and rest of the medications are noted. PHYSICAL EXAMINATION: VITAL SIGNS: Pulse is 70, blood pressure 102/65, respirations 15. HEENT: Conjunctivae are normal. NECK: No jugular venous distention. CARDIOVASCULAR: S1 and S2. RESPIRATORY: Breath sounds diminished at the bases. ABDOMEN: Soft and nontender. LEGS: No edema. NERVOUS SYSTEM: Nonfocal. LABORATORY DATA: Reviewed. ASSESSMENT: 1. Intractable headache secondary to possibly IVIG infusion, rule out migrainous episode. 2. Acute urinary tract infection. 3. Elevated WBC, present on admission. 4. Small fiber neuropathy, on IVIG infusions. 5. Postural orthostatic tachycardia syndrome. 6. Elevated sedimentation rate and CRP. RECOMMENDATIONS AND DISCUSSION: In this 23-year-old woman presented with multiple complex medical issues, we will monitor the patient closely. I would recommend Rocephin, cultures, and Infectious Disease evaluation. I would also recommend the basic evaluation for autoimmune markers. Continue to monitor. Otherwise, guarded prognosis because of multiple complex medical issues. Further recommendations to follow. MMODL / IJN: [id number] / MTDRakel
[2023-07-13] MEDS: MONTELUKAST 10 MG TAB PO SCH (20:33)
[2023-07-13] MEDS: IOPAMIDOL CONTRAST (ORAL USE) VIAL PO PRN ×2 (20:36→21:31)
[2023-07-13] MEDS: amLODIPine 2.5 MG TAB PO SCH (20:38)
[2023-07-13] MEDS: diphenhydrAMINE 25 MG CAP PO PRN (22:57)
[2023-07-14] MEDS: HEPARIN SODIUM,PORCINE 5,000 UNIT/ML 1 ML VIAL SQ SCH ×2 (01:21→20:05)
[2023-07-14] MEDS: Acetaminophen-Codeine 300-30mg TAB PO PRN ×3 (05:25→17:48)
[2023-07-14] MEDS: methylPREDNISolone SOD SUCCI 125 MG/2 ML VIAL IV SCH ×4 (05:26→21:55)
[2023-07-14] MEDS: BUTALB/APAP/CAFF 50-325-40MG TAB PO PRN ×2 (08:42→21:54)
[2023-07-14] MEDS: OXcarbazepine 150 MG TAB PO SCH (08:42)
[2023-07-14] MEDS: PANTOPRAZOLE 40 MG TABLET PO SCH ×2 (08:43→21:54)
[2023-07-14] MEDS: CYANOCOBALAMIN 500 MCG TAB PO SCH (08:43)
[2023-07-14] MEDS: SODIUM CHLORIDE 0.9% 1,000 ML IV SCH (08:43)
[2023-07-14] MEDS: NON FORMULARY DRUG (Ivabradine Hcl [Corlanor] 5 MG Tablet) PO SCH ×2 (08:43→21:56)
--- NOTE | 2023-07-14 09:10 | P.CONS ---
History of Present Illness - Reason for Consult Consult date: 07/13/23 - History of Present Illness Patient is a 23-year-old female with a past medical history significant for ovarian cyst anxiety disorder, small fiber neuropathy for the patient was started on IVIG infusion did receive a dose a day before presentation to the hospital patient presented to the hospital 2 days ago for evaluation of headache, patient describing her headache to be mostly posterior head area with some radiation to the neck moderate intensity with associated nausea but no vomiting, patient on presentation to the hospital was afebrile and no fever has been recorded subsequently patient was not tachycardic hypertensive or hypoxic she did have white count of 11.3 creatinine 0.79 initial UA was negative urine hCG was negative influenza RSV COVID test was negative patient did have a repeat UA done this morning we did shows large dose IV steroids more than 182 WBC concerning for UTI she was started on Rocephin infectious disease was consulted for further management of antibiotic therapy, patient is recommending of posterior head and neck area pain some control of the pain medication nausea but no vomiting. Denies any URI symptoms no chest pain shortness of breath or cough, denies any abdominal pain no diarrhea did have urinary symptoms of burning but no hematuria no suprapubic or flank pain Past Medical History Past Medical History: No Reported History Additional Past Medical History / Comment(s): OVARIAN CYST, RECENT RAPID HEART RATE, SOB, CHEST PAIN. POTS SYNDROME, fibroneuropathy, IVIG tx newly started 07/10/23 History of Any Multi-Drug Resistant Organisms: None Reported Past Surgical History: Adenoidectomy, Cholecystectomy, Orthopedic Surgery Additional Past Surgical History / Comment(s): left knee SX Past Anesthesia/Blood Transfusion Reactions: No Reported Reaction, Family History of Problems w/ Anesthesia Additional Past Anesthesia/Blood Transfusion Reaction / Comm: MOM HAS PONV Past Psychological History: Anxiety Smoking Status: Never smoker Past Alcohol Use History: None Reported Past Drug Use History: None Reported - Past Family History Mother Family Medical History: No Reported History Additional Family Medical History / Comment(s): Hishimotos Father Family Medical History: Diabetes Mellitus, Hypertension Medications and Allergies Home Medications Medication Instructions Recorded Confirmed Type medroxyPROGESTERone [Depo-Provera] 150 mg IM Q84D 06/25/20 07/11/23 History Ivabradine HCl [Corlanor] 5 mg PO BID 01/15/23 07/11/23 History Montelukast Sodium 10 mg PO HS 01/15/23 07/11/23 History Omeprazole [PriLOSEC] 20 mg PO BID 01/15/23 07/11/23 History amLODIPine BESYLATE 2.5 mg PO HS 01/15/23 07/11/23 History Copper 2mg Tablet 1 tab PO DAILY 07/11/23 07/11/23 History Cyanocobalamin (Vitamin B-12) 1,000 mcg PO DAILY 07/11/23 07/11/23 History [Vitamin B-12] OXcarbazepine [Trileptal] 150 mg PO DAILY 07/11/23 07/11/23 History Allergies Allergy/AdvReac Type Severity Reaction Status Date / Time adhesive tape Allergy Rash/Hives Verified 07/11/23 22:09 Physical Exam Vitals: Vital Signs Temp Pulse Resp BP Pulse Ox 07/13/23 15:00 97.9 F 86 14 116/81 100 07/13/23 07:15 98.9 F 70 15 102/65 98 07/13/23 02:00 98.4 F 82 16 102/67 98 07/12/23 20:00 98.8 F 83 16 104/66 98 Intake and Output 07/13/23 07/13/23 07/13/23 06:59 14:59 22:59 Intake Total 118 Balance 118 Intake: Oral 118 Other: # Voids 1 3 Results CBC & Chem 7: 07/12/23 11:43 07/12/23 11:43 Labs: Abnormal Lab Results - Last 24 Hours (Table) 07/12/23 07/13/23 Range/Units 11:43 09:19 ESR 38 H (0-20) mm/Hr Urine Appearance Cloudy H (Clear) Urine Blood Large H (Negative) Ur Leukocyte Esterase Large H (Negative) Urine RBC 153 H (0-5) /hpf Urine WBC >182 H (0-5) /hpf Urine WBC Clumps Few H (None) /hpf Urine Bacteria Rare H (None) /hpf Urine Mucus Rare H (None) /hpf Assessment and Plan Plan: 1patient is in the hospital predominantly with the headache currently being worked up by neurology patient also have symptoms of nausea did have a burning of urine positive UA and a possible component of symptomatic renal tract infection likely from enteric gram-negative pathogen patient also noted to be tender in the right lower quadrant area and will need to rule out any intra- abdominal source 2-we will obtain a CT of abdominal pelvis with contrast 3-patient to continue Rocephin 2 g daily while awaiting further cultures to be finalized We will follow on clinical condition and cultures to further adjust medication if needed Thank you for this consultation we will follow the patient along with you Dictation was produced using [employer] dictation software. please excuse any grammatical, word or spelling errors. Time with Patient: Greater than 30
--- NOTE | 2023-07-14 10:18 | CT ---
EXAMINATION TYPE: CT abdomen pelvis w con DATE OF EXAM: 07/13/2023 COMPARISON: 928 HISTORY: r lower quardant tenderness CONTRAST: CT scan of the abdomen and pelvis is performed with Oral Contrast and with IV Contrast, patient injec mainor with 90 mL of Isovue 300. FINDINGS: LUNG BASES-: No visible nodule. No infiltrate. LIVER/GB: The gallbladder is surgically absent. No space occupying hepatic lesion. Biliary tree is of normal caliber. PANCREAS: No inflammation. No distinct mass. SPLEEN: No splenic enlargement. No lesion seen. ADRENALS: No nodule. No thickening. KIDNEYS/BLADDER: No hydronephrosis. No nephrolithiasis. No distinct renal mass. Urinary bladder g rossly unremarkable. BOWEL: Difficulty in visualizing the appendix. The cecum is located deep into the right hemipelvis. N o obvious inflammatory process appreciated. Normal bowel caliber. No inflammation. GENITAL ORGANS: No gross abnormality. LYMPH NODES: No greater than 1cm abdominal or pelvic lymph nodes are appreciated. AORTA: No significant abnormality. OSSEOUS STRUCTURES: No significant abnormality is seen. OTHER: No significant additional abnormality is seen. IMPRESSION: 1. Difficulty in visualizing the appendix. The cecum is located deep into the right hemipelvis. No ob vious inflammatory process appreciated
[2023-07-14] MEDS: ONDANSETRON 4 MG/2 ML VIAL IVP PRN ×2 (11:11→22:59)
--- NOTE | 2023-07-14 12:24 | P.PN ---
Subjective Progress Note Date: 07/14/23 Patient was seen for a follow-up. Patient continues to have headache which she relates 03/26 today as well. Patient complains of nausea but no vomiting. She is more light sensitive as compared to noise. The headache involves the sites of the head more than the back. She does admit to having some blurred vision. Her eyes are hurting. Patient has failed all medications tried so far. She has failed steroids with Solu-Medrol 125 mg IV push every 6 hours, Depacon 500 mg IV 1 dose. Patient states that she has previously tried gabapentin, Lyrica, Elavil, Cymbalta, all of them produced severe depression. Patient received Tylenol 3, and did not work. Has failed tramadol, Fioricet, Dilaudid and nothing is working. Patient is feeling nauseous for which she received Zofran. No vomiting. She still light and noise sensitive. No focal symptoms. Objective - Vital Signs Vital signs: Vital Signs Temp 98.4 F 07/14/23 08:00 Pulse 75 07/14/23 08:00 Resp 14 07/14/23 08:00 BP 112/73 07/14/23 08:00 Pulse Ox 96 07/14/23 08:00 FiO2 Intake & Output 07/13/23 07/14/23 07/14/23 18:59 06:59 18:59 Intake Total 118 540 Balance 118 540 Intake: Oral 118 540 Other: Voiding Method Toilet # Voids 3 1 - Exam Patient appears comfortable. She has a flat affect. Speech and language functions are normal. Face is symmetric. Neck is supple. No rigidity. - Labs CBC & Chem 7: 07/12/23 11:43 07/12/23 11:43 Assessment and Plan Assessment: * Cephalalgia, severe, that started post treatment with IVIG. Patient has received 2/3 doses of the loading dose of IVIG, and could not complete the course because of headache. Patient has hypercoagulable state due to being on Depo shot, therefore with addition of another factor of IVIG. Cerebral venous sinus thrombosis ruled out. At this point, likely possibility is aseptic meningitis. Patient is afebrile, white cells are normal, no definitive meningeal signs. * Small fiber neuropathy, just started treatment with IVIG * Possible UTI * History of POTS syndrome. Plan: * Patient has failed all medications tried as mentioned above. She continues to have headache 03/26. * Interventional radiology consultation for lumbar puncture. Recommend checking opening pressure as well. * MRV head normal. No evidence of cerebral venous sinus thrombosis. I personally reviewed MRV, agree with the findings. * Heparin subcu held this morning for possible lumbar puncture. * Continue Solu-Medrol 125 mg IV push every 6 hours. Depacon 500 mg 1 dose did not work, we will not continue. * Patient has possible UTI, currently on ceftriaxone. * Hold IVIG for now, until patient has followed up with her neurologist. * If the headache resolves, then she will be clear for discharge.
[2023-07-14] MEDS ORDERED: SUMAtriptan succinate 50 MG TAB PO STA (13:43)
[2023-07-14 14:15] LABS: C-ANCA <1:20 Titer (<1:20)
[2023-07-14] MEDS: DOCUSATE 100 MG CAP PO PRN (16:45)
--- NOTE | 2023-07-14 16:54 | P.PN ---
Subjective Progress Note Date: 07/14/23 Principal diagnosis: Reason for follow-up is UTI Patient is a 23-year-old female with a past medical history significant for ovarian cyst anxiety disorder, small fiber neuropathy for the patient was started on IVIG infusion, presented to hospital with headache nausea vomiting she also have some urinary symptoms positive UA concerning for symptomatic urinary tract infection On today's evaluation that is 07/14/2023, the patient denies any fever or any chills, the patient is breathing comfortably on room air without the need for supplemental oxygen, patient denies chest pain shortness of breath, the patient denies cough or sputum production, patient denies Abdominal pain still have some nausea but no vomiting no diarrhea still complaining of posterior neck/headache No labs were drawn today, patient did have a CT abdominal pelvis did not show any inflammation in the right lower quadrant Objective - Vital Signs Vital signs: Vital Signs Temp 98.4 F 07/14/23 08:00 Pulse 75 07/14/23 08:00 Resp 14 07/14/23 08:00 BP 112/73 07/14/23 08:00 Pulse Ox 96 07/14/23 08:00 FiO2 Intake & Output 07/13/23 07/14/23 07/14/23 18:59 06:59 18:59 Intake Total 118 540 Balance 118 540 Intake: Oral 118 540 Other: Voiding Method Toilet # Voids 3 1 - Exam GENERAL DESCRIPTION: Young female lying in bed in no distress RESPIRATORY SYSTEM: Unlabored breathing , clear to auscultation anteriorly HEART: S1 S2 regular rate and rhythm , ABDOMEN: Soft , no tenderness EXTREMITIES: No edema feet - Labs CBC & Chem 7: 07/12/23 11:43 07/12/23 11:43 Assessment and Plan (1) Urinary tract infection Current Visit: Yes Status: Acute Code(s): N39.0 - URINARY TRACT INFECTION, SITE NOT SPECIFIED SNOMED Code(s): 92081392 Plan: 1patient is in the hospital predominantly with the headache currently being worked up by neurology patient also have symptoms of nausea did have a burning of urine positive UA and a possible component of symptomatic renal tract infection likely from enteric gram-negative pathogen patient also noted to be tender in the right lower quadrant area 2- CT of abdominal pelvis with contrast did not see jesus and despite pension no inflammation in the right lower quadrant area 3-patient to continue Rocephin 2 g daily while waiting for the cultures to finalize Dictation was produced using [employer] dictation software. please excuse any grammatical, word or spelling errors. Time with Patient: Less than 30
--- NOTE | 2023-07-14 17:50 | PN ---
PROGRESS NOTE DATE OF SERVICE: 07/14/2023 SUBJECTIVE: This is a 23-year-old woman, who was admitted with intractable headache secondary to IVIG infusion, is being closely monitored. Dr. Landaverde is following the patient closely. IV steroids have been initiated. No chest pain. No palpitation. No fever. Infectious Disease has also seen the patient. CT abdomen and pelvis showed no acute abnormality. PHYSICAL EXAMINATION: VITAL SIGNS: Pulse is 75, blood pressure 112/73, respirations 14. CHEST: Clear to auscultation. CARDIOVASCULAR: S1 and S2. ABDOMEN: Soft. NERVOUS SYSTEM: Nonfocal. LABORATORY DATA: Reviewed. ASSESSMENT: 1. Intractable headache secondary to possible IVIG infusion. Rule out migrainous episode. 2. Acute urinary tract infection. 3. Elevated WBC, present on admission. 4. Small fiber neuropathy, on IVIG infusion. 5. Postural orthostatic tachycardia syndrome. 6. Elevated ESR and CRP. RECOMMENDATIONS: Recommend to continue current medications. Continue symptomatic treatment. Continue with empiric antibiotics. Closely follow with multiple consultants. Prognosis is guarded. Further recommendations to follow. See orders for details. MMODL / IJN: [id number] /
[2023-07-14] MEDS: MONTELUKAST 10 MG TAB PO SCH (21:54)
[2023-07-14] MEDS: diphenhydrAMINE 25 MG CAP PO PRN (21:55)
[2023-07-14] MEDS: amLODIPine 2.5 MG TAB PO SCH (22:56)
[2023-07-15] MEDS: methylPREDNISolone SOD SUCCI 125 MG/2 ML VIAL IV SCH ×4 (06:06→21:23)
[2023-07-15] MEDS: ONDANSETRON 4 MG/2 ML VIAL IVP PRN ×2 (06:11→17:34)
[2023-07-15] MEDS: Acetaminophen-Codeine 300-30mg TAB PO PRN (06:11)
[2023-07-15] MEDS: HEPARIN SODIUM,PORCINE 5,000 UNIT/ML 1 ML VIAL SQ SCH ×2 (08:43→21:23)
[2023-07-15] MEDS: CYANOCOBALAMIN 500 MCG TAB PO SCH (09:33)
[2023-07-15] MEDS: BUTALB/APAP/CAFF 50-325-40MG TAB PO PRN (09:33)
[2023-07-15] MEDS: PANTOPRAZOLE 40 MG TABLET PO SCH ×2 (09:35→21:22)
[2023-07-15] MEDS: OXcarbazepine 150 MG TAB PO SCH (09:35)
[2023-07-15] MEDS: NON FORMULARY DRUG (Ivabradine Hcl [Corlanor] 5 MG Tablet) PO SCH ×2 (09:53→20:59)
[2023-07-15 10:56] LABS: Basophils # (A) 0.03 X 10*3/uL (0.00-0.10); Basophils % (A) 0.2 %; Eosinophils # (A) 0.04 X 10*3/uL (0.04-0.35); Eosinophils % (A) 0.2 %; Lymphocytes # (A) 1.69 X 10*3/uL (0.90-5.00); Lymphocytes % (A) 10.1 %; MCH 29.7 pg (27.0-32.0); MCHC 33.3 g/dL (32.0-37.0); Monocytes # (A) 0.74 X 10*3/uL (0.20-1.00); Monocytes % (A) 4.4 %; NRBC Per 100 WBC 0 X 10*3/uL (0.00-0.01); Neutrophils # (A) 14.09 X 10*3/uL (1.80-7.70); Neutrophils % (A) 84.6 %; Platelet Count 268 X 10*3/uL (140-440); RBC 4.38 X 10*6/uL (4.10-5.20); RDW 12.7 % (11.5-14.5); WBC 16.68 X 10*3/uL (4.50-10.00)
[2023-07-15 11:27] LABS: ALT 67 U/L (8-44); AST 32 U/L (13-35); Albumin 4.1 g/dL (3.8-4.9); Albumin/Globulin Ratio 1.02 Ratio (1.60-3.17); Alkaline Phosphatase 60 U/L (41-126); BUN/Creat Ratio 8.57 Ratio (12.00-20.00); Calcium 9.5 mg/dL (8.7-10.3); Carbon Dioxide 21.1 mmol/L (21.6-31.8); Chloride 110 mmol/L (96-109); Glucose 133 mg/dL (70-110); Potassium 3.9 mmol/L (3.5-5.5); Sodium 144 mmol/L (135-145); Total Bilirubin 0.2 mg/dL (0.3-1.2); Total Protein 8.1 g/dL (6.2-8.2)
[2023-07-15 11:53] LABS: Erythrocyte Sedimentation Rate 51 mm/Hr (0-20)
[2023-07-15] MEDS ORDERED: KETOROLAC 15 MG/ML 1 ML VIAL IVP PRN (11:53)
[2023-07-15] MEDS: SODIUM CHLORIDE 0.9% 1,000 ML IV SCH (12:18)
[2023-07-15] MEDS: diphenhydrAMINE 25 MG CAP PO PRN ×2 (12:29→21:22)
[2023-07-15] MEDS: HYDROmorphone 1 MG/ML 1 ML SYRINGE IVP PRN ×3 (12:30→21:23)
[2023-07-15] MEDS ORDERED: LORazepam 2 MG/ML INJ IV STA (13:11)
--- NOTE | 2023-07-15 14:35 | P.PN ---
Subjective Progress Note Date: 07/15/23 07/15/2023: Patient is laying in the bed, both parents are present around. Patient complains of headache in, but with the medication, it is down to 04/26. Patient appears slightly groggy, probably from receiving multiple pain medications. The primary has increased the dose of Dilaudid. No new focal symptoms. Patient continues to feel nauseous, but no vomiting. Also light and noise sensitive. She otherwise appears comfortable except for grogginess. 07/14/2023: Patient was seen for a follow-up. Patient continues to have headache which she relates 03/26 today as well. Patient complains of nausea but no vomiting. She is more light sensitive as compared to noise. The headache involves the sites of the head more than the back. She does admit to having some blurred vision. Her eyes are hurting. Patient has failed all medications tried so far. She has failed steroids with Solu-Medrol 125 mg IV push every 6 hours, Depacon 500 mg IV 1 dose. Patient states that she has previously tried gabapentin, Lyrica, Elavil, Cymbalta, all of them produced severe depression. Patient received Tylenol 3, and did not work. Has failed tramadol, Fioricet, Dilaudid and nothing is working. Patient is feeling nauseous for which she received Zofran. No vomiting. She still light and noise sensitive. No focal symptoms. Objective - Vital Signs Vital signs: Vital Signs Temp 98.8 F 07/15/23 13:30 Pulse 121 H 07/15/23 13:30 Resp 16 07/15/23 13:30 BP 113/77 07/15/23 13:30 Pulse Ox 98 07/15/23 13:30 FiO2 Intake & Output 07/14/23 07/15/23 07/15/23 18:59 06:59 18:59 Intake Total 540 Balance 540 Intake: Oral 540 Other: Voiding Method Toilet # Voids 3 2 2 - Exam Patient appears comfortable. She has a flat affect. She does smile. Speech and language functions are normal. Face is symmetric. Neck is supple. No rigidity. - Labs CBC & Chem 7: 07/15/23 05:56 07/15/23 05:56 Labs: Abnormal Lab Results - Last 24 Hours (Table) 07/15/23 07/15/23 Range/Units 05:56 05:56 WBC 16.68 H (4.50-10.00) X 10*3/uL Neutrophils # 14.09 H (1.80-7.70) X 10*3/uL ESR 51 H (0-20) mm/Hr Chloride 110 H (96-109) mmol/L Carbon Dioxide 21.1 L (21.6-31.8) mmol/L Anion Gap 12.90 H (4.00-12.00) mmol/L BUN 6.0 L (9.0-27.0) mg/dL BUN/Creatinine Ratio 8.57 L (12.00-20.00) Ratio Glucose 133 H (70-110) mg/dL Total Bilirubin 0.2 L (0.3-1.2) mg/dL ALT 67 H (8-44) U/L Globulin 4.0 H (1.6-3.3) g/dL Albumin/Globulin Ratio 1.02 L (1.60-3.17) Ratio Assessment and Plan Assessment: * Cephalalgia, severe, that started post treatment with IVIG. Patient has received 2/3 doses of the loading dose of IVIG, and could not complete the course because of headache. Patient has hypercoagulable state due to being on Depo shot, therefore with addition of another factor of IVIG. Cerebral venous sinus thrombosis ruled out. At this point, likely possibility is aseptic meningitis. Patient is afebrile, white cells are normal, no definitive meningeal signs. * Small fiber neuropathy, just started treatment with IVIG * Possible UTI * History of POTS syndrome. Plan: * Patient has failed all medications tried as mentioned above. She continues to have headache -05/26. * Interventional radiology, and anesthesiology were not available for lumbar puncture. * Patient consented for bedside lumbar puncture by neurology. * MRV head normal. No evidence of cerebral venous sinus thrombosis. I personally reviewed MRV, agree with the findings. * Resume heparin subcu after lumbar puncture. * Continue Solu-Medrol 125 mg IV push every 6 hours. Depacon 500 mg 1 dose did not work, we will not continue. * Check MRI of the brain with and without contrast. * Patient has possible UTI, currently on ceftriaxone. ID following. * Hold IVIG for now, until patient has followed up with her neurologist. * If the headache resolves, then she will be clear for discharge. * Because of persistent headache, we will transfer patient to [facility] with her neurology team, where she has been treated for small fiber neuropathy.
--- NOTE | 2023-07-15 14:37 | P.PCN ---
Date of Procedure: 07/15/23 Preoperative Diagnosis: Aseptic meningitis Postoperative Diagnosis: Aseptic meningitis Procedure(s) Performed: Lumbar puncture Anesthesia: local Surgeon: Kristan Landaverde Estimated Blood Loss (ml): 0 Pathology: none sent Condition: stable Disposition: floor Indications for Procedure: Aseptic meningitis Description of Procedure: Informed consent was obtained from patient, in front of patient's parents. Very detailed risks and benefits of the procedure, and the indication of procedure was explained to the patient in detail. Patient was informed of the risk of infection, bleeding, numbness, back pain, and the features of post spinal headache and the treatment. Patient was placed in the sitting position on the side of the bed. The procedure was performed under strict aseptic conditions. L4 lumbar space was identified and marked. Low back region was sterilized with ChloraPrep and then with Betadine, and anesthetized with 1% lidocaine. A spinal needle 22-gauge, 3.5 inch inserted at L4 lumbar space. I was able to enter subarachnoid space in 1 pass. Patient was then placed in the left lateral position to check for opening pressure. The opening pressure was 7 cm water. Patient was recommended to cough, and the spinal fluid level was rising and coming down freely, indicating no obstruction. Spinal fluid was completely atraumatic, colorless and clear. About 9-10 mL of spinal fluid was collected in 3 tubes (bottle #1 discarded because the cap ring dislodged from the tube and it fell). Stylette was reintroduced, spinal needle withdrawn. Band-Aid applied. Patient was recommended to lay flat for half an hour. Patient tolerated the procedure very well. Spinal fluid was sent for analysis.
[2023-07-15 14:45] LABS: Appearance,CSF Clear
[2023-07-15 14:46] LABS: CSF Tube Number 4
[2023-07-15 15:16] LABS: Red Blood Cell,CSF 51 u/L (0-10)
[2023-07-15 15:19] LABS: Nucleated Cells, CSF 33 u/L (0-5)
[2023-07-15 15:23] LABS: Diff, Total Cells Cnt, CSF 100; Mononuclear WBC,CSF 97 %; Polynuclear WBC,CSF 3 %
[2023-07-15 15:24] LABS: Red Blood Cell, CSF Fresh 100 %
[2023-07-15 19:23] LABS: Glucose,CSF 71 mg/dL (40-70)
--- NOTE | 2023-07-15 19:53 | P.PN ---
Subjective Progress Note Date: 07/15/23 This is a pleasant 23-year-old female who follows with Dr. Mohamud in the outpatient setting and has recently been following with neurology at of [facility] and was diagnosed with small fiber neuropathy and has received 2 transfusions of IVIG and during her second transfusion last week prior to admission here she started developing and experiencing intractable headache along with neck and upper back pain and is being closely followed by neurology undergoing further workup including LP today which is currently pending. Patient has had venogram as well as brain CT which has been negative and patient is maintained on large dose IV steroids every 6 hours and continued pain medications with no relief. Patient also having symptoms of urinary tract infection being maintained on ceftriaxone and infectious disease is following. Culture has been sent and pending at this time. Given patient's continued symptoms with no relief, have discussed the case with neurology and recommended transfer to tertiary treatment center to [facility] for continuity of care and higher level of care. Patient is currently afebrile and white count is elevated, multifactorial possibly steroid effect as well as infection. Patient denies chest pain or shortness of breath currently room air. Other labs have been reviewed and within normal limits. Discussed with family and patient and are agreeable with transfer. Review of systems: Constitutional: No reports of fatigue, fever, or chills Cardiovascular: No reports of chest pain or palpitations Respiratory: No reports of shortness of breath or cough GI: No reports of nausea, no reports of vomiting, no diarrhea : reports of dysuria and burning with urination Neurovascular: reports of generalized weakness and continued ongoing intractab le headache All medications have been reviewed Active Medications Acetaminophen (Acetaminophen Tab 325 Mg Tab) 650 mg PO Q6HR PRN PRN Reason: Mild Pain or Fever > 100.5 Acetaminophen/Butalbital/Caffeine (Butalb/Apap/Caff 50-325-40mg Tab) 1 each PO Q4HR PRN PRN Reason: Headache Last Admin: 07/15/23 09:33 Dose: 1 each Acetaminophen/Codeine Phosphate (Acetaminophen-Codeine 300-30mg Tab) 1 each PO Q6HR PRN PRN Reason: Pain Last Admin: 07/15/23 06:11 Dose: 1 each Amlodipine Besylate (Amlodipine 2.5 Mg Tab) 2.5 mg PO HS MONSE Last Admin: 07/14/23 22:56 Dose: 2.5 mg Cyanocobalamin (Cyanocobalamin 500 Mcg Tab) 1,000 mcg PO DAILY [facility] Last Admin: 07/15/23 09:33 Dose: 1,000 mcg Diphenhydramine HCl (Diphenhydramine 25 Mg Cap) 25 mg PO QID PRN PRN Reason: Itching Last Admin: 07/15/23 12:29 Dose: 25 mg Docusate Sodium (Docusate 100 Mg Cap) 100 mg PO BID PRN PRN Reason: Constipation Last Admin: 07/14/23 16:45 Dose: 100 mg Heparin Sodium (Porcine) (Heparin Sodium,Porcine 5,000 Unit/Ml 1 Ml Vial) 5,000 unit SQ Q12HR [facility] Last Admin: 07/15/23 08:43 Dose: Not Given Hydromorphone HCl (Hydromorphone 1 Mg/Ml 1 Ml Syringe) 1 mg IVP Q4H PRN PRN Reason: Severe Pain (Scale 7 to 10) Last Admin: 07/15/23 17:47 Dose: 1 mg Sodium Chloride (Saline 0.9%) 1,000 mls @ 20 mls/hr IV .Q24H [facility] Last Admin: 07/15/23 12:18 Dose: Not Given Ceftriaxone Sodium 2 gm/ (Sodium Chloride) 50 mls @ 100 mls/hr IVPB Q24HR [facility]; Protocol Last Admin: 07/15/23 09:37 Dose: 100 mls/hr Ketorolac Tromethamine (Ketorolac 15 Mg/Ml 1 Ml Vial) 15 mg IVP Q6HR PRN PRN Reason: Pain Stop: 07/20/23 11:53 Methylprednisolone Sodium Succinate (Methylprednisolone Sod Succi 125 Mg/2 Ml Vial) 125 mg IV Q6HR [facility] Last Admin: 07/15/23 17:34 Dose: 125 mg Montelukast Sodium (Montelukast 10 Mg Tab) 10 mg PO HS [facility] Last Admin: 07/14/23 21:54 Dose: 10 mg Naloxone HCl (Naloxone 0.4 Mg/Ml 1 Ml Vial) 0.2 mg IV Q2M PRN PRN Reason: Opioid Reversal Non-Formulary Medication (Ivabradine Hcl [Corlanor]) 5 mg PO BID [facility] Last Admin: 07/15/23 09:53 Dose: Not Given Ondansetron HCl (Ondansetron 4 Mg/2 Ml Vial) 4 mg IVP Q6HR PRN PRN Reason: Nausea And Vomiting Last Admin: 07/15/23 17:34 Dose: 4 mg Oxcarbazepine (Oxcarbazepine 150 Mg Tab) 150 mg PO DAILY [facility] Last Admin: 07/15/23 09:35 Dose: 150 mg Pantoprazole Sodium (Pantoprazole 40 Mg Tablet) 20 mg PO BID [facility] Last Admin: 07/15/23 09:35 Dose: 20 mg Tramadol HCl (Tramadol 50 Mg Tab) 50 mg PO Q6H PRN PRN Reason: Moderate Pain (Scale 4 to 6) Last Admin: 07/13/23 06:36 Dose: 50 mg PHYSICAL EXAMINATION: GENERAL: The patient is alert and oriented x4, Well developed, well nourished. HEENT: Pupils are round and equally reacting to light. EOMI. no scleral icterus. No conjunctival pallor. Normocephalic, atraumatic. No pharyngeal erythema. No thyromegaly. CARDIOVASCULAR: S1 and S2 muffled PULMONARY: diminished breath sounds bilaterally with no wheezing or rhonchi noted. ABDOMEN: soft. Nontender on exam. non-distended, normoactive bowel sounds. No palpable organomegaly. MUSCULOSKELETAL: No joint swelling or deformity. EXTREMITIES: No cyanosis, clubbing, or pedal edema. NEUROLOGICAL: Gross neurological examination did not reveal any focal deficits. Slightly photosensitive. Diffuse weakness SKIN: No rashes. Assessment: Intractable headache secondary to possible IVIG infusion, rule out migrainous episode Elevated neutrophils on CSF, concerns for meningitis Acute urinary tract infection, present on admission Elevated WBC, present on admission possibly secondary to urinary tract infection Small fiber neuropathy, recently started on IVIG infusion this month per her neurologist of [facility] Postural orthostatic tachycardia syndrome Elevated ESR and CRP GI prophylaxis DVT prophylaxis Full code Plan: Recommend to continue with current medications and management with neurology following undergoing workup Patient is status post lumbar puncture with noted low pressure and MRI of the brain is ordered. Cultures as well as Gram stain and urology sent and pending along with other are logical workup including MS studies. Neutrophils noted to be elevated at 33, causing concern for possible meningitis per neurology Transfer to [facility] initiated and [facility] is at capacity and spoke with neurologist unable to accept at this time recommending possible transfer to [facility] and has been accepted by Dr. Peter neurologist and currently awaiting a bed. Neurology team there was updated on neutrophils in CSF. A copy of the chart along with all imaging being placed on a desk and initiated for transfer. Family is agreeable with this transfer and aware they are awaiting a bed Patient is continued on antibiotics in the form of ceftriaxone for acute urinary tract infection and cultures are pending with infectious disease following Will follow-up with repeat labs and continue to monitor the patient closely Prognosis is guarded The impression and plan of care has been dictated by nurse jose raul Johnston as directed. Dr. Saravanan MD I have performed a history and examination and MDM of this patient, discussed the same with the dictator, and agree with the dictator's assessment and plan as written ,documented as a scribe. Based on total visit time, I have performed more than 50% of the visit. Any additional findings or plans will be noted. Objective - Vital Signs Vital signs: Vital Signs Temp 98.8 F 07/15/23 13:30 Pulse 121 H 07/15/23 13:30 Resp 16 07/15/23 13:30 BP 113/77 07/15/23 13:30 Pulse Ox 98 07/15/23 13:30 FiO2 Intake & Output 07/15/23 07/15/23 07/16/23 06:59 18:59 06:59 Other: Voiding Method Toilet # Voids 2 2 - Labs CBC & Chem 7: 07/15/23 05:56 07/15/23 05:56 Labs: Abnormal Lab Results - Last 24 Hours (Table) 07/14/23 07/15/23 07/15/23 Range/Units 13:50 05:56 05:56 WBC 16.68 H (4.50-10.00) X 10*3/uL Neutrophils # 14.09 H (1.80-7.70) X 10*3/uL ESR 51 H (0-20) mm/Hr Chloride 110 H (96-109) mmol/L Carbon Dioxide 21.1 L (21.6-31.8) mmol/L Anion Gap 12.90 H (4.00-12.00) mmol/L BUN 6.0 L (9.0-27.0) mg/dL BUN/Creatinine Ratio 8.57 L (12.00-20.00) Ratio Glucose 133 H (70-110) mg/dL Total Bilirubin 0.2 L (0.3-1.2) mg/dL ALT 67 H (8-44) U/L Globulin 4.0 H (1.6-3.3) g/dL Albumin/Globulin Ratio 1.02 L (1.60-3.17) Ratio CSF RBC 51 H (0-10) u/L CSF Tot Nucleated Cells 33 H* (0-5) u/L
[2023-07-15] MEDS: MONTELUKAST 10 MG TAB PO SCH (21:22)
[2023-07-15] MEDS: amLODIPine 2.5 MG TAB PO SCH (21:36)
[2023-07-16] MEDS: HYDROmorphone 1 MG/ML 1 ML SYRINGE IVP PRN ×5 (02:11→20:51)
[2023-07-16] MEDS: ONDANSETRON 4 MG/2 ML VIAL IVP PRN ×3 (02:11→20:50)
[2023-07-16] MEDS: methylPREDNISolone SOD SUCCI 125 MG/2 ML VIAL IV SCH ×4 (06:45→20:51)
[2023-07-16] MEDS: diphenhydrAMINE 25 MG CAP PO PRN ×4 (08:23→22:08)
[2023-07-16 08:42] LABS: Basophils # (A) 0.01 X 10*3/uL (0.00-0.10); Basophils % (A) 0.1 %; Eosinophils # (A) 0.02 X 10*3/uL (0.04-0.35); Eosinophils % (A) 0.2 %; HCT 37.4 % (37.2-46.3); HGB 12.6 g/dL (12.0-15.0); Lymphocytes # (A) 1.58 X 10*3/uL (0.90-5.00); Lymphocytes % (A) 12.2 %; MCH 29.8 pg (27.0-32.0); MCHC 33.7 g/dL (32.0-37.0); MCV 88.4 FL (80.0-97.0); Mean Platelet Volume 10.5 FL (9.5-12.2); Monocytes # (A) 0.64 X 10*3/uL (0.20-1.00); Monocytes % (A) 4.9 %; NRBC Per 100 WBC 0 X 10*3/uL (0.00-0.01); Neutrophils # (A) 10.63 X 10*3/uL (1.80-7.70); Neutrophils % (A) 81.8 %; Platelet Count 249 X 10*3/uL (140-440); RBC 4.23 X 10*6/uL (4.10-5.20); RDW 12.8 % (11.5-14.5); WBC 12.98 X 10*3/uL (4.50-10.00)
[2023-07-16 08:50] LABS: ALT 50 U/L (8-44); AST 18 U/L (13-35); Albumin 3.9 g/dL (3.8-4.9); Albumin/Globulin Ratio 1.08 Ratio (1.60-3.17); Alkaline Phosphatase 52 U/L (41-126); BUN/Creat Ratio 11.57 Ratio (12.00-20.00); Blood Urea Nitrogen 8.1 mg/dL (9.0-27.0); Calcium 9.1 mg/dL (8.7-10.3); Chloride 107 mmol/L (96-109); Globulin 3.6 g/dL (1.6-3.3); Glucose 121 mg/dL (70-110); Potassium 4.2 mmol/L (3.5-5.5); Sodium 142 mmol/L (135-145); Total Bilirubin <0.2 mg/dL (0.3-1.2); Total Protein 7.5 g/dL (6.2-8.2)
[2023-07-16] MEDS: HEPARIN SODIUM,PORCINE 5,000 UNIT/ML 1 ML VIAL SQ SCH ×2 (09:41→20:50)
[2023-07-16] MEDS: PANTOPRAZOLE 40 MG TABLET PO SCH ×2 (09:42→20:50)
[2023-07-16] MEDS: OXcarbazepine 150 MG TAB PO SCH (09:42)
[2023-07-16] MEDS: CYANOCOBALAMIN 500 MCG TAB PO SCH (09:42)
[2023-07-16] MEDS ORDERED: CALAMINE/ZINC OXIDE LOTION 177 ML BTL TOPICAL PRN (09:48)
[2023-07-16] MEDS: NON FORMULARY DRUG (Ivabradine Hcl [Corlanor] 5 MG Tablet) PO SCH ×2 (10:08→21:07)
[2023-07-16] MEDS: SODIUM CHLORIDE 0.9% 1,000 ML IV SCH (11:53)
--- NOTE | 2023-07-16 11:59 | MR ---
EXAMINATION TYPE: MR brain wo/w con DATE OF EXAM: 07/15/2023 5:01 PM CLINICAL INDICATION:Female, 23 years old with history of Persistent cephalgia, Persistent headache. COMPARISON: 07/13/2023, 07/12/2023 CT TECHNIQUE: Multi planar, multi sequence imaging was performed through the brain including: T1, T2, In version recovery, susceptibility weighted imaging and gradient echo imaging and Diffusion weighted im aging. The patient was then given intravenous contrast and multi planar, T1 fat-saturation images wer e obtained. IV Contrast: 5.5 cc Gadavist FINDINGS: There is high FLAIR signal seen within the sulci bilaterally near the skull vertex. Series 501 image 25 and image 28.. Additionally there is high DWI signal in these regions. There is no intri nsic high T1 signal within the sulci. The khoury-white junctions, ventricular system, basal cisterns appear unremarkable. Intracranial quinn rial flow voids are maintained. Midline structures show no abnormality. The susceptibility weighted i mages do not reveal any evidence for micro-hemorrhage. After administration of gadolinium, no abnorma l enhancement is seen. The venous sinuses are patent bilaterally. The bone marrow signal is within normal limits. Paranasal sinuses and mastoid air cells: No significant paranasal sinus disease. Visualized orbits: Orbital contents are intact. IMPRESSION: High flair signal in the sulci bilaterally. Consider repeat CT brain noncontrast throughout interval hemorrhage however it is felt to be less likely given lack of intrinsic high T1 signal. Correlate for etiology such as vasculitis and other vascular etiologies with blood products not excluded. Further evaluation with MR angiogram with complete head coverage to the skull vertex(must be requested in the order to be included),. Alternatively correlate for coagulopathy versus connective tissue disorders. DWI signal within these region is also present and hard to locate given differences in slice selecti on and similar technique small cortical infarction is not excluded. No finding on venogram to correla te with these findings.
[2023-07-16] MEDS: NYSTATIN 100,000 UNIT/ML SUSP 500,000 UNIT/5 ML CUP PO SCH ×3 (13:20→20:51)
--- NOTE | 2023-07-16 15:41 | P.PN ---
Subjective Progress Note Date: 07/15/23 Principal diagnosis: Reason for follow-up is UTI Patient is a 23-year-old female with a past medical history significant for ovarian cyst anxiety disorder, small fiber neuropathy for the patient was started on IVIG infusion, presented to hospital with headache nausea vomiting she also have some urinary symptoms positive UA concerning for symptomatic urinary tract infection On today's evaluation that is 07/15/2023, the patient remains to be febrile, the patient is breathing comfortably on room air. The patient denies having any shortness of breath no chest pain or cough, patient denies Abdominal pain, no nausea/vomiting or diarrhea, the patient is still complaining of posterior neck/headache patient did have a white count of 16.68, creatinine 0.7, patient did have an LP with elevated cell count of 33 predominantly mononuclear glucose 71 protein is 29 Objective - Vital Signs Vital signs: Vital Signs Temp 98.1 F 07/15/23 08:00 Pulse 89 07/15/23 08:00 Resp 14 07/15/23 08:00 BP 99/62 07/15/23 08:00 Pulse Ox 98 07/15/23 08:00 FiO2 Intake & Output 07/14/23 07/15/23 07/15/23 18:59 06:59 18:59 Intake Total 540 Balance 540 Intake: Oral 540 Other: Voiding Method Toilet # Voids 3 2 - Exam GENERAL DESCRIPTION: Young female lying in bed in no distress RESPIRATORY SYSTEM: Unlabored breathing , clear to auscultation anteriorly HEART: S1 S2 regular rate and rhythm , ABDOMEN: Soft , no tenderness EXTREMITIES: No edema feet - Labs CBC & Chem 7: 07/16/23 04:37 07/16/23 04:37 Assessment and Plan (1) Urinary tract infection Current Visit: Yes Status: Acute Code(s): N39.0 - URINARY TRACT INFECTION, SITE NOT SPECIFIED SNOMED Code(s): 34485459 Plan: 1patient is in the hospital predominantly with the headache currently being worked up by neurology patient also have symptoms of nausea did have a burning of urine positive UA and a possible component of symptomatic renal tract infection likely from enteric gram-negative pathogen patient also noted to be tender in the right lower quadrant area 2- CT of abdominal pelvis with contrast did not see appendix however no inflam mation in the right lower quadrant area 3-patient to continue Rocephin 2 g daily while waiting for the cultures to finalize 4-patient with a headache concern for possible aseptic meningitis related to theIVIG infusion being monitored by neurology on Solu-Medrol 5-elevated white count more likely steroid related Dictation was produced using [employer] dictation software. please excuse any grammatical, word or spelling errors. Time with Patient: Less than 30
--- NOTE | 2023-07-16 15:43 | P.PN ---
Subjective Progress Note Date: 07/16/23 Principal diagnosis: Reason for follow-up is UTI Patient is a 23-year-old female with a past medical history significant for ovarian cyst anxiety disorder, small fiber neuropathy for the patient was started on IVIG infusion, presented to hospital with headache nausea vomiting she also have some urinary symptoms positive UA concerning for symptomatic urinary tract infection On today's evaluation that is 07/16/2023, the patient denies any fever or any chills, the patient is breathing comfortably on room air and denies any shortness of breath, the patient denies any chest pain, no cough or sputum production, patient complaining of some nausea but no vomiting no abdominal pain no diarrhea and complaining of headache patient did have a white count is down to 12.98, creatinine 0.7, patient did have an LP with elevated cell count of 33 predominantly mononuclear glucose 71 protein is 29 Objective - Vital Signs Vital signs: Vital Signs Temp 98.4 F 07/16/23 07:49 Pulse 79 07/16/23 07:49 Resp 16 07/16/23 07:49 BP 100/62 07/16/23 07:49 Pulse Ox 96 07/16/23 07:49 FiO2 Intake & Output 07/15/23 07/16/23 07/16/23 18:59 06:59 18:59 Other: Voiding Method Toilet # Voids 2 3 - Exam GENERAL DESCRIPTION: Young female lying in bed in no distress RESPIRATORY SYSTEM: Unlabored breathing , clear to auscultation anteriorly HEART: S1 S2 regular rate and rhythm , ABDOMEN: Soft , no tenderness EXTREMITIES: No edema feet - Labs CBC & Chem 7: 07/16/23 04:37 07/16/23 04:37 Labs: Abnormal Lab Results - Last 24 Hours (Table) 07/14/23 07/16/23 07/16/23 Range/Units 13:50 04:37 04:37 WBC 12.98 H (4.50-10.00) X 10*3/uL Neutrophils # 10.63 H (1.80-7.70) X 10*3/uL Eosinophils # 0.02 L (0.04-0.35) X 10*3/uL Anion Gap 13.00 H (4.00-12.00) mmol/L BUN 8.1 L (9.0-27.0) mg/dL BUN/Creatinine Ratio 11.57 L (12.00-20.00) Ratio Glucose 121 H (70-110) mg/dL Total Bilirubin <0.2 L (0.3-1.2) mg/dL ALT 50 H (8-44) U/L Globulin 3.6 H (1.6-3.3) g/dL Albumin/Globulin Ratio 1.08 L (1.60-3.17) Ratio CSF RBC 51 H (0-10) u/L CSF Tot Nucleated Cells 33 H* (0-5) u/L CSF Glucose 71 H (40-70) mg/dL Microbiology - Last 24 Hours (Table) 07/14/23 13:50 CSF Gram Stain - Preliminary Cerebral Spinal Fluid Assessment and Plan (1) Urinary tract infection Current Visit: Yes Status: Acute Code(s): N39.0 - URINARY TRACT INFECTION, SITE NOT SPECIFIED SNOMED Code(s): 44083941 (2) Leukocytosis Current Visit: Yes Status: Acute Code(s): D72.829 - ELEVATED WHITE BLOOD CELL COUNT, UNSPECIFIED SNOMED Code(s): 758771365 Plan: 1patient is in the hospital predominantly with the headache , patient did have LP and suspicious for possible aseptic meningitis currently being managed by neurology and is on Solu-Medrol 2-patient did have some urinary symptoms , positive UA concerning for UTI on Rocephin and urine cultures pending 3- leukocytosis possibly related to steroids and trending downward were monitored Dictation was produced using [employer] dictation software. please excuse any grammatical, word or spelling errors. Time with Patient: Less than 30
--- NOTE | 2023-07-16 19:50 | P.DS ---
Providers Date of admission: 07/11/23 21:58 Expected date of discharge: 07/16/23 Attending physician: Stephanie Coe Consults: 07/12/23 09:20 Consult Physician Urgent Consulting Provider: Kristan Landaverde Consult Reason/Comments: intractable headache post IVIG Do you want consulting provider notified?: Yes 07/13/23 12:28 Consult Physician Urgent Consulting Provider: Tao Alfonso Consult Reason/Comments: elevated crp, uti Do you want consulting provider notified?: Yes Primary care physician: Alber Mohamud [facility] Course: Final diagnosis Intractable headache secondary to possible IVIG infusion, rule out migrainous episode Elevated neutrophils on CSF, concerns for aseptic meningitis Acute urinary tract infection, present on admission Elevated WBC, present on admission possibly secondary to urinary tract infection as well as steroid effect Small fiber neuropathy, recently started on IVIG infusion this month per her neurologist of [facility] Postural orthostatic tachycardia syndrome Elevated ESR and CRP GI prophylaxis DVT prophylaxis Full code Discharge disposition Patient is being discharged in a stable condition with guarded prognosis to [facility]. Patient will follow-up with Dr. Mohamud in the outpatient setting upon discharge. Patient is to continue with IV steroids as well as IV Rocephin and outpatient follow-up with her neurologist as scheduled. Total time taken is greater than 35 minutes. Hospital course This is a 23-year-old female who was recently admitted with intractable headache status post IVIG infusion and follows with neurologist out of [facility]. Patient undergoing further neurological workup including LP which had elevated neutrophils at 33 on CSF with concerns of aseptic meningitis as well as acute urinary tract infection. Patient is maintained on IV ceftriaxone along with IV steroids at 125 mg every 6 hours with neurology following closely. Patient continues to have intractable pain with no relief neurology recommending transfer to tertiary treatment for further neurological evaluation. Patient and family are agreeable to the transfer. Transfer initiated and patient has been accepted at [facility] and Dr. Peter and currently awaiting a bed. Patient is afebrile and white count is trending down and will continue on current medication regimen. Transfer team contacted again today and notify their May possibly be a bed later this evening. Family was notified at bedside. Currently no reports of chest pain, shortness of breath, or palpitations. Patient is afebrile. No reports of nausea or vomiting and patient is tolerating diet. Patient will be to [facility] once bed becomes available. Guarded prognosis. Physical exam: Gen: This is a 23-year-old female who is awake, alert and oriented 3, well- developed, well-nourished HEENT: Head is atraumatic, normocephalic. Pupils equal, round. Sclerae is anicteric. NECK: Supple. No JVD. No lymphadenopathy. No thyromegaly. LUNGS: Clear to auscultation. No wheezes or rhonchi. No intercostal retractions. HEART: Regular rate and rhythm. No murmur. ABDOMEN: Soft. Bowel sounds are present. No masses. No tenderness. EXTREMITIES: No pedal edema. No calf tenderness. NEUROLOGICAL: Patient is awake, alert and oriented x3. Cranial nerves 2 through 12 are grossly intact. Please refer to medication reconciliation sheet for a list of medications. The impression and plan of care has been dictated by Bria Robison, Nurse Practitioner as directed. Dr. Saravanan MD I have performed a history and examination and MDM of this patient, discussed the same with the dictator, and agree with the dictator's assessment and plan as written ,documented as a scribe. Based on total visit time, I have performed more than 50% of the visit. Patient Condition at Discharge: Stable Plan - Discharge Summary Discharge Rx Participant: No New Discharge Prescriptions: No Action medroxyPROGESTERone [Depo-Provera] 150 mg IM Q84D amLODIPine BESYLATE 2.5 mg PO HS Ivabradine HCl [Corlanor] 5 mg PO BID OXcarbazepine [Trileptal] 150 mg PO DAILY Cyanocobalamin (Vitamin B-12) [Vitamin B-12] 1,000 mcg PO DAILY Copper 2mg Tablet 1 tab PO DAILY Omeprazole [PriLOSEC] 20 mg PO BID Montelukast Sodium 10 mg PO HS Discharge Medication List medroxyPROGESTERone [Depo-Provera] 150 mg IM Q84D 06/25/20 [History] Ivabradine HCl [Corlanor] 5 mg PO BID 01/15/23 [History] Montelukast Sodium 10 mg PO HS 01/15/23 [History] Omeprazole [PriLOSEC] 20 mg PO BID 01/15/23 [History] amLODIPine BESYLATE 2.5 mg PO HS 01/15/23 [History] Copper 2mg Tablet 1 tab PO DAILY 07/11/23 [History] Cyanocobalamin (Vitamin B-12) [Vitamin B-12] 1,000 mcg PO DAILY 07/11/23 [History] OXcarbazepine [Trileptal] 150 mg PO DAILY 07/11/23 [History] Follow up Appointment(s)/Referral(s): Alber Mohamud MD [Primary Care Provider] - 1-2 days Activity/Diet/Wound Care/Special Instructions: Patient has been accepted by Dr. Peter neurologist from [facility] and will be transferred once bed is available Discharge Disposition: OTHER INSTITUTION NOT DEFINED
[2023-07-16] MEDS: amLODIPine 2.5 MG TAB PO SCH (20:50)
[2023-07-16] MEDS: DOCUSATE 100 MG CAP PO PRN (20:50)
[2023-07-16] MEDS: MONTELUKAST 10 MG TAB PO SCH (20:50)
[2023-07-17] MEDS: diphenhydrAMINE 25 MG CAP PO PRN ×3 (04:22→22:21)
[2023-07-17] MEDS: ONDANSETRON 4 MG/2 ML VIAL IVP PRN ×3 (04:22→22:21)
[2023-07-17] MEDS: HYDROmorphone 1 MG/ML 1 ML SYRINGE IVP PRN ×4 (04:22→22:21)
[2023-07-17] MEDS: methylPREDNISolone SOD SUCCI 125 MG/2 ML VIAL IV SCH ×3 (04:22→19:10)
--- NOTE | 2023-07-17 09:13 | P.PN ---
Subjective Progress Note Date: 07/16/23 07/16/2023: Patient was seen for a follow-up. Patient is sitting in the recliner. She is not in a good mood. She was planning to take shower, but developed headache that was worse than baseline, therefore now sitting in the recliner. Patient states that when she is in the bed, it is 8/10, but when she gets up, it goes up to 9-10/10. Patient currently on Dilaudid 1 mg every 3 hours. She has started itching. Patient was given Imitrex, which did not help. Patient is awaiting transfer to [facility] for possible plasma exchange. 07/15/2023: Patient is laying in the bed, both parents are present around. Patient complains of headache in/10, but with the medication, it is down to 9/10. Patient appears slightly groggy, probably from receiving multiple pain medications. The primary has increased the dose of Dilaudid. No new focal symptoms. Patient continues to feel nauseous, but no vomiting. Also light and noise sensitive. She otherwise appears comfortable except for grogginess. 07/14/2023: Patient was seen for a follow-up. Patient continues to have headache which she relates 8/10 today as well. Patient complains of nausea but no vomiting. She is more light sensitive as compared to noise. The headache involves the sites of the head more than the back. She does admit to having some blurred vision. Her eyes are hurting. Patient has failed all medications tried so far. She has failed steroids with Solu-Medrol 125 mg IV push every 6 hours, Depacon 500 mg IV 1 dose. Patient states that she has previously tried gabapentin, Lyrica, Elavil, Cymbalta, all of them produced severe depression. Patient received Tylenol 3, and did not work. Has failed tramadol, Fioricet, Dilaudid and nothing is working. Patient is feeling nauseous for which she received Zofran. No vomiting. She still light and noise sensitive. No focal symptoms. Objective - Vital Signs Vital signs: Vital Signs Temp 98.4 F 07/16/23 07:49 Pulse 79 07/16/23 07:49 Resp 16 07/16/23 07:49 BP 100/62 07/16/23 07:49 Pulse Ox 96 07/16/23 07:49 FiO2 Intake & Output 07/15/23 07/16/23 07/16/23 18:59 06:59 18:59 Other: Voiding Method Toilet # Voids 2 3 - Exam Patient is alert and awake in no distress. She has a somewhat flat affect. Speech and language functions are normal. - Labs CBC & Chem 7: 07/16/23 04:37 07/16/23 04:37 Labs: Abnormal Lab Results - Last 24 Hours (Table) 07/14/23 07/15/23 07/16/23 Range/Units 13:50 05:56 04:37 WBC 12.98 H (4.50-10.00) X 10*3/uL Neutrophils # 10.63 H (1.80-7.70) X 10*3/uL Eosinophils # 0.02 L (0.04-0.35) X 10*3/uL ESR 51 H (0-20) mm/Hr Anion Gap (4.00-12.00) mmol/L BUN (9.0-27.0) mg/dL BUN/Creatinine Ratio (12.00-20.00) Ratio Glucose (70-110) mg/dL Total Bilirubin (0.3-1.2) mg/dL ALT (8-44) U/L Globulin (1.6-3.3) g/dL Albumin/Globulin Ratio (1.60-3.17) Ratio CSF RBC 51 H (0-10) u/L CSF Tot Nucleated Cells 33 H* (0-5) u/L CSF Glucose 71 H (40-70) mg/dL 07/16/23 Range/Units 04:37 WBC (4.50-10.00) X 10*3/uL Neutrophils # (1.80-7.70) X 10*3/uL Eosinophils # (0.04-0.35) X 10*3/uL ESR (0-20) mm/Hr Anion Gap 13.00 H (4.00-12.00) mmol/L BUN 8.1 L (9.0-27.0) mg/dL BUN/Creatinine Ratio 11.57 L (12.00-20.00) Ratio Glucose 121 H (70-110) mg/dL Total Bilirubin <0.2 L (0.3-1.2) mg/dL ALT 50 H (8-44) U/L Globulin 3.6 H (1.6-3.3) g/dL Albumin/Globulin Ratio 1.08 L (1.60-3.17) Ratio CSF RBC (0-10) u/L CSF Tot Nucleated Cells (0-5) u/L CSF Glucose (40-70) mg/dL Microbiology - Last 24 Hours (Table) 07/14/23 13:50 CSF Gram Stain - Preliminary Cerebral Spinal Fluid Assessment and Plan Assessment: * Aseptic meningitis, likely due to adverse effect of IVIG. Patient has received 2/3 doses of the loading dose of IVIG, and could not complete the course because of headache. * Small fiber neuropathy, just started treatment with IVIG * Possible UTI * History of POTS syndrome. * History of hypercoagulable state because of control pills and recent IVIG. Plan: * Patient has failed all medications tried as mentioned above, including Imitrex. She continues to have headache -05/26. * CSF consistent with aseptic meningitis. CSF shows WBC 33, out of which 97% mononuclear in 3% polynuclear cells. RBCs 51. Total protein is 29 which is normal, and glucose 71. MS panel, comprehensive viral detection, CSF MANSI level pending. * MRV head normal. No evidence of cerebral venous sinus thrombosis. I personally reviewed MRV, agree with the findings. * CTA of head and neck revealed no evidence of dissection of the cervical internal carotid arteries or vertebral arteries or any evidence of significant stenosis at the carotid bifurcations. No evidence of intracranial high-grade stenosis or intracranial aneurysm. * MRI of the brain with and without contrast completed, results pending. * Resume heparin subcu after lumbar puncture. * Continue Solu-Medrol 125 mg IV push every 6 hours. Depacon 500 mg 1 dose did not work, we will not continue. * Patient has possible UTI, currently on ceftriaxone. ID following. * Hold IVIG for now, until patient has followed up with her neurologist. * Because of persistent headache, we will transfer patient to [facility] with her neurology team, where she has been treated for small fiber neuropathy.
[2023-07-17] MEDS: NYSTATIN 100,000 UNIT/ML SUSP 500,000 UNIT/5 ML CUP PO SCH ×4 (09:40→22:03)
[2023-07-17] MEDS: DOCUSATE 100 MG CAP PO PRN (09:40)
[2023-07-17] MEDS: HEPARIN SODIUM,PORCINE 5,000 UNIT/ML 1 ML VIAL SQ SCH ×2 (09:40→16:45)
[2023-07-17] MEDS: CYANOCOBALAMIN 500 MCG TAB PO SCH (09:41)
[2023-07-17] MEDS: PANTOPRAZOLE 40 MG TABLET PO SCH ×2 (09:41→22:03)
[2023-07-17] MEDS: NON FORMULARY DRUG (Ivabradine Hcl [Corlanor] 5 MG Tablet) PO SCH ×2 (09:41→21:37)
[2023-07-17] MEDS: OXcarbazepine 150 MG TAB PO SCH (09:41)
[2023-07-17] MEDS: SODIUM CHLORIDE 0.9% 1,000 ML IV SCH (09:42)
[2023-07-17] MEDS ORDERED: FLUCONAZOLE 100 MG TAB PO SCH (11:45)
--- NOTE | 2023-07-17 12:47 | CT ---
EXAMINATION TYPE: CT brain wo con DATE OF EXAM: 07/17/2023 COMPARISON: MRI brain on 07/15/2023. HISTORY: intractable headache, pos hx of meningitis, nausea/vomiting CT DLP: 985.70 mGycm. Automated Exposure Control for Dose Reduction was Utilized. TECHNIQUE: CT scan of the head is performed without contrast. FINDINGS: There is no acute intracranial hemorrhage, mass effect, or midline shift identified. The ventricles and sulci are within normal limits in size. The globes are intact and the visualized sin uses are clear. IMPRESSION: No acute intracranial hemorrhage, mass effect, or midline shift is seen.
[2023-07-17 13:06] VITALS: BMI 20.1
[2023-07-17] MEDS: Acetaminophen-Codeine 300-30mg TAB PO PRN (13:35)
--- NOTE | 2023-07-17 14:54 | P.PN ---
Subjective Progress Note Date: 07/17/23 Principal diagnosis: Reason for follow-up is UTI Patient is a 23-year-old female with a past medical history significant for ovarian cyst anxiety disorder, small fiber neuropathy for the patient was started on IVIG infusion, presented to hospital with headache nausea vomiting she also have some urinary symptoms positive UA concerning for symptomatic urinary tract infection On today's evaluation that is 07/17/2023 the patient remains to be afebrile, the patient is breathing comfortably on room air and no need for oxygen. The patient denies shortness of breath denies any chest pain or cough, patient still complaining of headache without improvement did have some nausea no vomiting or diarrhea reported complaining of vaginal yeast infection patient did have a white count is 12.98, creatinine 0.7 as of 07/16/2023, patient did have an LP with elevated cell count of 33 predominantly mononuclear glucose 71 protein is 29 Objective - Vital Signs Vital signs: Vital Signs Temp 98.1 F 07/17/23 08:00 Pulse 66 07/17/23 08:00 Resp 16 07/17/23 08:00 BP 125/77 07/17/23 08:00 Pulse Ox 99 07/17/23 08:00 FiO2 Intake & Output 07/16/23 07/17/23 07/17/23 18:59 06:59 18:59 Intake Total 118 Balance 118 Weight 56.699 kg Intake: Oral 118 Other: Voiding Method Toilet # Voids 2 2 - Exam GENERAL DESCRIPTION: Young female lying in bed in no distress RESPIRATORY SYSTEM: Unlabored breathing , clear to auscultation anteriorly HEART: S1 S2 regular rate and rhythm , ABDOMEN: Soft , no tenderness EXTREMITIES: No edema feet - Labs CBC & Chem 7: 07/16/23 04:37 07/16/23 04:37 Labs: Microbiology - Last 24 Hours (Table) 07/13/23 09:19 Urine Culture - Final Urine,Voided Staphylococcus epidermidis 07/14/23 13:50 CSF Gram Stain - Preliminary Cerebral Spinal Fluid CSF Culture - Preliminary Assessment and Plan (1) Urinary tract infection Current Visit: Yes Status: Acute Code(s): N39.0 - URINARY TRACT INFECTION, SITE NOT SPECIFIED SNOMED Code(s): 99041785 (2) Leukocytosis Current Visit: Yes Status: Acute Code(s): D72.829 - ELEVATED WHITE BLOOD CELL COUNT, UNSPECIFIED SNOMED Code(s): 680969284 Plan: 1patient is in the hospital predominantly with the headache , patient did have LP and suspicious for possible aseptic meningitis currently being managed by neurology and is on Solu-Medrol 2-patient did have some urinary symptoms , positive UA concerning for UTI , urine culture have been finalized as staph epi that is oxacillin resistant we will discontinue Rocephin patient was started on oral Levaquin tomorrow as she got a dose of Diflucan today and risk of QT prolongation discussed with the admitting team 3- leukocytosis possibly related to steroids and trending downward , no CBC was done today Family the bedside and multiple questions concerned were answered Dictation was produced using [email or web address] dictation software. please excuse any grammatical, word or spelling errors. Time with Patient: Less than 30
--- NOTE | 2023-07-17 15:02 | P.PN ---
Subjective Progress Note Date: 07/17/23 07/17/2023: Patient was seen for a follow-up. Patient continues to have headache, which she rates between 8-9/10. Patient yesterday took shower, and started having nausea vomiting. She felt will pass out. Patient is noticing a lot of pressure in her eyes, in her ear ringing. Patient states the symptoms have been present before the lumbar puncture, but has got worse. Her headache is worse when she is sitting and standing, better when she is laying down. She has some post-spinal headache. 07/16/2023: Patient was seen for a follow-up. Patient is sitting in the recliner. She is not in a good mood. She was planning to take shower, but developed headache that was worse than baseline, therefore now sitting in the recliner. Patient states that when she is in the bed, it is 8/10, but when she gets up, it goes up to 9-10/10. Patient currently on Dilaudid 1 mg every 3 hours. She has started itching. Patient was given Imitrex, which did not help. Patient is awaiting transfer to [facility] for possible plasma exchange. 07/15/2023: Patient is laying in the bed, both parents are present around. Patient complains of headache in/10, but with the medication, it is down to 9/10. Patient appears slightly groggy, probably from receiving multiple pain medications. The primary has increased the dose of Dilaudid. No new focal sy mptoms. Patient continues to feel nauseous, but no vomiting. Also light and noise sensitive. She otherwise appears comfortable except for grogginess. 07/14/2023: Patient was seen for a follow-up. Patient continues to have headache which she relates 8/10 today as well. Patient complains of nausea but no vomiting. She is more light sensitive as compared to noise. The headache involves the sites of the head more than the back. She does admit to having some blurred vision. Her eyes are hurting. Patient has failed all medications tried so far. She has failed steroids with Solu-Medrol 125 mg IV push every 6 hours, Depacon 500 mg IV 1 dose. Patient states that she has previously tried gabapentin, Lyrica, Elavil, Cymbalta, all of them produced severe depression. Patient received Tylenol 3, and did not work. Has failed tramadol, Fioricet, Dilaudid and nothing is working. Patient is feeling nauseous for which she received Zofran. No vomiting. She still light and noise sensitive. No focal symptoms. Objective - Vital Signs Vital signs: Vital Signs Temp 98.1 F 07/17/23 08:00 Pulse 66 07/17/23 08:00 Resp 16 07/17/23 08:00 BP 125/77 07/17/23 08:00 Pulse Ox 99 07/17/23 08:00 FiO2 Intake & Output 07/16/23 07/17/23 07/17/23 18:59 06:59 18:59 Intake Total 118 118 Balance 118 118 Weight 56.699 kg Intake: Oral 118 118 Other: Voiding Method Toilet # Voids 2 2 - Exam Patient is alert and awake in no distress. She is keeping her lites of the room dim. Speech and language functions normal. Cranial nerves are normal. Pupils are round and reacting. On muscle strength testing, there is no pronator drift and the strength is normal in arms and legs. No ataxia for [id number] testing. Reflexes are 1+ to 2+ and plantars downgoing. Sensory touch is equal. - Labs CBC & Chem 7: 07/16/23 04:37 07/16/23 04:37 Labs: Microbiology - Last 24 Hours (Table) 07/13/23 09:19 Urine Culture - Final Urine,Voided Staphylococcus epidermidis 07/14/23 13:50 CSF Gram Stain - Preliminary Cerebral Spinal Fluid CSF Culture - Preliminary Assessment and Plan Assessment: * Aseptic meningitis, likely due to adverse effect of IVIG. Patient has received 2/3 doses of the loading dose of IVIG, and could not complete the course because of headache. * Small fiber neuropathy, just started treatment with IVIG * Possible UTI * History of POTS syndrome. * History of hypercoagulable state because of control pills and recent IVIG. * Rash, probably drug ALLERGY Plan: * Patient has failed all medications tried as mentioned previously. She continues to have headache 8-04/26, goes up further with nausea vomiting, when she stands up or sits. She has developed some post spinal headache component as well. Discussed with patient and her mom. Patient has frontal pressure, some ringing even before the lumbar puncture. We will hold off on epidural blood patch in at this time. If symptoms persist, then we will consult anesthesia. * CSF consistent with aseptic meningitis. CSF shows WBC 33, out of which 97% mononuclear in 3% polynuclear cells. RBCs 51. Total protein is 29 which is normal, and glucose 71. Comprehensive viral panel came back negative. MS panel, CSF MANSI level pending. * MRV head normal. No evidence of cerebral venous sinus thrombosis. I reviewed it with the radiologist Dr. Shah. He mentions it is a poor study. However the current MRI of the brain shows patent venous sinuses. Also that lumbar puncture performed initially had low normal intracranial pressure, as with cerebral venous sinus thrombosis, one would expect very high intracranial pressure. Therefore venous science from was is appears unlikely. I discussed all radiology films Dr. Shah. It appears patient has probable aseptic meningitis. CT head was performed today, which was negative for any subarachn oid hemorrhage. Also, CSF showed only 51 RBCs, which is not typically seen with subarachnoid hemorrhage. * CTA of head and neck revealed no evidence of dissection of the cervical internal carotid arteries or vertebral arteries or any evidence of significant stenosis at the carotid bifurcations. No evidence of intracranial high-grade stenosis or intracranial aneurysm. * MRI of the brain with and without contrast reported high FLAIR signal in the sulci bilaterally. Consider repeat CT brain noncontrast to rule out interval hemorrhage, however felt it to be less likely given lack of intrinsic high signal on the T1 images. Correlate for etiology such as vasculitis and other vascular etiologies with blood products not excluded. MRA was recommended. Patient already had CTA head and neck performed recently which was normal. No indication for repeat MRI at this time. * Heparin 5000 units subcu every 12 hours for DVT prophylaxis. We will change it to 5000 units subcu every 8 hours, because patient is mostly bedbound with limited mobility. * Recommend transfer to her level of care for possible plasma exchange. * Patient has possible UTI, and patient switched to Levaquin from ceftriaxone. ID following. * Hold IVIG for now, until patient has followed up with her neurologist. * Because of persistent headache, we will transfer patient to [facility] with her neurology team, for possible plasma exchange, where she has been treated for small fiber neuropathy. * Discussed with patient's family in detail. Dr. Collazo will be covering neurology service over the weekend.
--- NOTE | 2023-07-17 15:37 | P.PN ---
Subjective Progress Note Date: 07/17/23 This is a pleasant 23-year-old female who follows with Dr. Mohamud in the outpatient setting and has recently been following with neurology at of [facility] and was diagnosed with small fiber neuropathy and has received 2 transfusions of IVIG and during her second transfusion last week prior to admission here she started developing and experiencing intractable headache along with neck and upper back pain and is being closely followed by neurology undergoing further workup including LP today which is currently pending. Patient has had venogram as well as brain CT which has been negative and patient is maintained on large dose IV steroids every 6 hours and continued pain medications with no relief. Patient also having symptoms of urinary tract infection being maintained on ceftriaxone and infectious disease is following. Culture has been sent and pending at this time. Given patient's continued symptoms with no relief, have discussed the case with neurology and recommended transfer to tertiary treatment center to [facility] for continuity of care and higher level of care. Patient is currently afebrile and white count is elevated, multifactorial possibly steroid effect as well as infection. Patient denies chest pain or shortness of breath currently room air. Other labs have been reviewed and within normal limits. Discussed with family and patient and are agreeable with transfer. 07/17/2023 Patient is seen in follow-up continues to be awaiting a bed at [facility] and transfer team was notified inquiring about a bed with no beds available currently and transfer team will contact the unit once a bed is available. Awaiting pending discharges from the facility. Patient being followed closely by neurology underwent repeat CT of the brain showing no acute intracranial hemorrhage mass effect or midline shift noted. Patient continues to have extreme headache reporting 9/10 and no improvement and also experiencing some nausea associated with this. Patient was maintained on ceftriaxone with infectious disease following for urinary tract infection and urine culture finalized showing Staphylococcus epidermidis and we'll transition to oral Levaquin starting on 07/18/2023 per infectious disease recommendations. Patient continued on IV steroids as well as pain medications and will continue to monitor closely. Patient having some irritation and itchiness in the vaginal area likely secondary to yeast and will give a dose of Diflucan. Patient is also maintained on nystatin with irritation and thrush-like appearance on oral mucosa. Patient has been encouraged to increase activity as tolerated as she is mostly lying in bed all day although she reports she feels nauseated and having increasing headache symptoms when she is up. Encouraged oral intake in small frequent meals. Overall prognosis remains guarded and mother was updated at the bedside and continues to await for about assignment at [facility]. Review of systems: Constitutional: reports of fatigue, no fever, or chills Cardiovascular: No reports of chest pain or palpitations Respiratory: No reports of shortness of breath or cough GI: reports of nausea, no reports of vomiting, no diarrhea : reports of dysuria and burning with urination and irritation in the vaginal area with itchiness Neurovascular: reports of generalized weakness and continued ongoing intractable headache All medications have been reviewed Active Medications Acetaminophen (Acetaminophen Tab 325 Mg Tab) 650 mg PO Q6HR PRN PRN Reason: Mild Pain or Fever > 100.5 Acetaminophen/Butalbital/Caffeine (Butalb/Apap/Caff 50-325-40mg Tab) 1 each PO Q4HR PRN PRN Reason: Headache Last Admin: 07/15/23 09:33 Dose: 1 each Acetaminophen/Codeine Phosphate (Acetaminophen-Codeine 300-30mg Tab) 1 each PO Q6HR PRN PRN Reason: Pain Last Admin: 07/17/23 13:35 Dose: 1 each Amlodipine Besylate (Amlodipine 2.5 Mg Tab) 2.5 mg PO HS MONSE Last Admin: 07/16/23 20:50 Dose: 2.5 mg Calamine (Calamine/Zinc Oxide Lotion 177 Ml Btl) 1 applic TOPICAL TID PRN; Protocol PRN Reason: Skin Irritation Last Admin: 07/16/23 10:31 Dose: 1 applic Cyanocobalamin (Cyanocobalamin 500 Mcg Tab) 1,000 mcg PO DAILY MONSE Last Admin: 07/17/23 09:41 Dose: 1,000 mcg Diphenhydramine HCl (Diphenhydramine 25 Mg Cap) 25 mg PO QID PRN PRN Reason: Itching Last Admin: 07/17/23 13:35 Dose: 25 mg Docusate Sodium (Docusate 100 Mg Cap) 100 mg PO BID PRN PRN Reason: Constipation Last Admin: 07/17/23 09:40 Dose: 100 mg Heparin Sodium (Porcine) (Heparin Sodium,Porcine 5,000 Unit/Ml 1 Ml Vial) 5,000 unit SQ Q8HR MONSE Hydromorphone HCl (Hydromorphone 1 Mg/Ml 1 Ml Syringe) 1 mg IVP Q4H PRN PRN Reason: Severe Pain (Scale 7 to 10) Last Admin: 07/17/23 09:43 Dose: 1 mg Sodium Chloride (Saline 0.9%) 1,000 mls @ 20 mls/hr IV .Q24H [facility] Last Admin: 07/17/23 09:42 Dose: Not Given Ketorolac Tromethamine (Ketorolac 15 Mg/Ml 1 Ml Vial) 15 mg IVP Q6HR PRN PRN Reason: Pain Stop: 07/20/23 11:53 Levofloxacin (Levofloxacin 500 Mg Tab) 500 mg PO Q24H [facility]; Protocol Methylprednisolone Sodium Succinate (Methylprednisolone Sod Succi 125 Mg/2 Ml Vial) 125 mg IV Q6HR [facility] Last Admin: 07/17/23 04:22 Dose: 125 mg Montelukast Sodium (Montelukast 10 Mg Tab) 10 mg PO HS [facility] Last Admin: 07/16/23 20:50 Dose: 10 mg Naloxone HCl (Naloxone 0.4 Mg/Ml 1 Ml Vial) 0.2 mg IV Q2M PRN PRN Reason: Opioid Reversal Non-Formulary Medication (Ivabradine Hcl [Corlanor]) 5 mg PO BID [facility] Last Admin: 07/17/23 09:41 Dose: Not Given Nystatin (Nystatin 100,000 Unit/Ml Susp 500,000 Unit/5 Ml Cup) 500,000 unit PO QID [facility]; Protocol Last Admin: 07/17/23 13:35 Dose: 500,000 unit Ondansetron HCl (Ondansetron 4 Mg/2 Ml Vial) 4 mg IVP Q6HR PRN PRN Reason: Nausea And Vomiting Last Admin: 07/17/23 04:22 Dose: 4 mg Oxcarbazepine (Oxcarbazepine 150 Mg Tab) 150 mg PO DAILY [facility] Last Admin: 07/17/23 09:41 Dose: 150 mg Pantoprazole Sodium (Pantoprazole 40 Mg Tablet) 20 mg PO BID [facility] Last Admin: 07/17/23 09:41 Dose: 20 mg Tramadol HCl (Tramadol 50 Mg Tab) 50 mg PO Q6H PRN PRN Reason: Moderate Pain (Scale 4 to 6) Last Admin: 07/13/23 06:36 Dose: 50 mg PHYSICAL EXAMINATION: GENERAL: The patient is alert and oriented x4, Well developed, well nourished. HEENT: Pupils are round and equally reacting to light. EOMI. no scleral icterus. No conjunctival pallor. Normocephalic, atraumatic. No pharyngeal erythema. No thyromegaly. CARDIOVASCULAR: S1 and S2 muffled PULMONARY: diminished breath sounds bilaterally with no wheezing or rhonchi noted. ABDOMEN: soft. Nontender on exam. non-distended, normoactive bowel sounds. No palpable organomegaly. MUSCULOSKELETAL: No joint swelling or deformity. EXTREMITIES: No cyanosis, clubbing, or pedal edema. NEUROLOGICAL: Gross neurological examination did not reveal any focal deficits. Slightly photosensitive. Diffuse weakness SKIN: No rashes. Assessment: Intractable headache secondary to possible IVIG infusion, rule out migrainous episode Elevated neutrophils on CSF, concerns for aseptic meningitis Acute urinary tract infection, present on admission with culture showing Staphyl ococcus epidermidis Vaginal and oral Emani Elevated WBC, present on admission possibly secondary to urinary tract infection, improving Small fiber neuropathy, recently started on IVIG infusion this month per her neurologist of [facility] Postural orthostatic tachycardia syndrome Elevated ESR and CRP GI prophylaxis DVT prophylaxis Full code Plan: Recommend to continue with current medications and management with neurology following undergoing workup with concerns of aseptic meningitis and recommending transfer to tertiary treatment and has been accepted at [facility] awaiting a bed assignment [facility]. Patient is status post lumbar puncture with noted low pressure and MRI of the br ain is ordered. Cultures as well as Gram stain and urology sent and pending along with other are logical workup including MS studies. Neutrophils noted to be elevated at 33, causing concern for possible meningitis per neurology. Repeat CT brain was performed today with no acute process noted Transfer to [facility] initiated and [facility] is at capacity and spoke with neurologist unable to accept at this time recommending transfer to [facility] and has been accepted by Dr. Peter neurologist and currently awaiting a bed. Neurology team there was updated on neutrophils in CSF. transfer team contacted again today with no beds available and awaiting one pending discharges at the facility. Transfer team will contact the unit once a bed is available A copy of the chart along with all imaging being placed on a desk and initiated for transfer. Family is agreeable with this transfer and aware they are awaiting a bed Patient is continued on antibiotics in the form of Levaquin per ID recommendations for acute urinary tract infection and cultures finalized showing Staphylococcus epidermidis Will follow-up with repeat labs and continue to monitor the patient closely Prognosis is guarded The impression and plan of care has been dictated by Bria Robison, nurse practitioner as directed. Dr. Saravanan MD I have performed a history and examination and MDM of this patient, discussed the same with the dictator, and agree with the dictator's assessment and plan as written ,documented as a scribe. Based on total visit time, I have performed more than 50% of the visit. Any additional findings or plans will be noted. Objective - Vital Signs Vital signs: Vital Signs Temp 98.4 F 07/17/23 14:00 Pulse 79 07/17/23 14:00 Resp 16 07/17/23 14:00 BP 108/75 07/17/23 14:00 Pulse Ox 98 07/17/23 14:00 FiO2 Intake & Output 07/16/23 07/17/23 07/17/23 18:59 06:59 18:59 Intake Total 118 118 Balance 118 118 Weight 56.699 kg Intake: Oral 118 118 Other: Voiding Method Toilet # Voids 2 2 3 - Labs CBC & Chem 7: 07/16/23 04:37 07/16/23 04:37 Labs: Microbiology - Last 24 Hours (Table) 07/13/23 09:19 Urine Culture - Final Urine,Voided Staphylococcus epidermidis 07/14/23 13:50 CSF Gram Stain - Preliminary Cerebral Spinal Fluid CSF Culture - Preliminary
[2023-07-17] MEDS: MONTELUKAST 10 MG TAB PO SCH (22:03)
[2023-07-18] MEDS: amLODIPine 2.5 MG TAB PO SCH ×2 (00:33→22:28)
[2023-07-18] MEDS: HEPARIN SODIUM,PORCINE 5,000 UNIT/ML 1 ML VIAL SQ SCH ×4 (00:39→23:35)
[2023-07-18] MEDS: methylPREDNISolone SOD SUCCI 125 MG/2 ML VIAL IV SCH ×5 (00:39→23:35)
[2023-07-18] MEDS: ONDANSETRON 4 MG/2 ML VIAL IVP PRN ×2 (04:57→16:55)
[2023-07-18] MEDS: HYDROmorphone 1 MG/ML 1 ML SYRINGE IVP PRN (04:57)
--- NOTE | 2023-07-18 06:47 | P.PN ---
Progress Note - Text Progress Note Date: 07/18/23 07/18/2023 [facility] transfer team Bianca HOOD contacted the unit requesting updates on transfer and have called back to discuss the case. and per Jay Luong they are now retracting their original acceptance to [facility] with Dr. Peter neurologist as well as Jay Luongalex Ortega. they are reporting that the same level of care can be done at [facility] as would be done at their facilities and this is not higher level of care at a tertiary center. Dr. Davidson (who is above Dr. Peter) who oversees neurology at [facility] has declined the transfer and this was also discussed with Dr. Conway neuro- business administration teacher at [facility] in [place] who has also declined the transfer.
[2023-07-18] MEDS: NYSTATIN 100,000 UNIT/ML SUSP 500,000 UNIT/5 ML CUP PO SCH ×4 (08:51→22:01)
[2023-07-18] MEDS: PANTOPRAZOLE 40 MG TABLET PO SCH ×2 (08:51→22:03)
[2023-07-18] MEDS: Acetaminophen-Codeine 300-30mg TAB PO PRN ×2 (08:51→18:11)
[2023-07-18] MEDS: LEVOFLOXACIN 500 MG TAB PO SCH (08:51)
[2023-07-18] MEDS: OXcarbazepine 150 MG TAB PO SCH (08:52)
[2023-07-18] MEDS: SODIUM CHLORIDE 0.9% 1,000 ML IV SCH ×2 (08:52→22:04)
[2023-07-18] MEDS: NON FORMULARY DRUG (Ivabradine Hcl [Corlanor] 5 MG Tablet) PO SCH ×2 (08:52→22:03)
[2023-07-18] MEDS: CYANOCOBALAMIN 500 MCG TAB PO SCH (08:52)
[2023-07-18 09:33] LABS: Basophils # (A) 0.02 X 10*3/uL (0.00-0.10); Basophils % (A) 0.3 %; Eosinophils # (A) 0 X 10*3/uL (0.04-0.35); Eosinophils % (A) 0 %; HCT 42.9 % (37.2-46.3); HGB 14.2 g/dL (12.0-15.0); Lymphocytes # (A) 1.29 X 10*3/uL (0.90-5.00); Lymphocytes % (A) 18.2 %; MCH 29.4 pg (27.0-32.0); MCHC 33.1 g/dL (32.0-37.0); MCV 88.8 FL (80.0-97.0); Mean Platelet Volume 10.7 FL (9.5-12.2); Monocytes # (A) 0.24 X 10*3/uL (0.20-1.00); Monocytes % (A) 3.4 %; NRBC Per 100 WBC 0 X 10*3/uL (0.00-0.01); Neutrophils # (A) 5.39 X 10*3/uL (1.80-7.70); Platelet Count 273 X 10*3/uL (140-440); RBC 4.83 X 10*6/uL (4.10-5.20); RDW 12.3 % (11.5-14.5); WBC 7.09 X 10*3/uL (4.50-10.00)
[2023-07-18 09:55] LABS: Blood Urea Nitrogen 9.1 mg/dL (9.0-27.0); Chloride 105 mmol/L (96-109); Glucose 128 mg/dL (70-110); Potassium 4.1 mmol/L (3.5-5.5); Sodium 142 mmol/L (135-145)
[2023-07-18 09:56] LABS: ALT 37 U/L (8-44); AST 16 U/L (13-35); Albumin 3.9 g/dL (3.8-4.9); Albumin/Globulin Ratio 1.11 Ratio (1.60-3.17); Alkaline Phosphatase 57 U/L (41-126); Calcium 9.1 mg/dL (8.7-10.3); Carbon Dioxide 23.9 mmol/L (21.6-31.8); Globulin 3.5 g/dL (1.6-3.3); Total Bilirubin <0.2 mg/dL (0.3-1.2); Total Protein 7.4 g/dL (6.2-8.2)
[2023-07-18] MEDS: MORPHINE SULFATE 2 MG/ML SYRINGE IVP PRN ×3 (12:42→22:03)
--- NOTE | 2023-07-18 13:31 | P.PN ---
Subjective Progress Note Date: 07/18/23 the pt is a 23 y/o female who is seen in neurologic follow up on 2022, in cross coverage for Dr. Landaverde via teleneurology. The chart has been reviewed. the pt reportedly caries a diagnosis of small fiber neuropathy and received her first dose of IVIgG. She experienced significant side effects and currently has an aseptic meningitis. The pt has been experiencing severe, intractable headache since prior to admission. The current headache is a 9/10. She does note that the pain is worse with sitting and standing. She has been receiving Dilaudid which provides minimal relief and causes itching. The pt feels the need to shower, because of the itching. While standing, she becomes nauseated and the pain is worse. Because of the adverse reaction to IVIgG, the pt would potentially benefit from plasma pheresis. Attempts have been made to transfer the pt to [facility] for this procedure. Unfortunately, it cannot be performed at our facility. MRIs, MRVs and CT scans have been personally reviewed. Objective - Vital Signs Vital signs: Vital Signs Temp 98.3 F 07/18/23 07:35 Pulse 58 L 07/18/23 07:35 Resp 16 07/18/23 07:35 BP 111/72 07/18/23 07:35 Pulse Ox 98 07/18/23 07:35 FiO2 Intake & Output 07/17/23 07/18/23 07/18/23 18:59 06:59 18:59 Intake Total 236 Balance 236 Weight 56.699 kg Intake: Oral 236 Other: Voiding Method Toilet # Voids 3 1 - Exam General: The pt is reclining in the bed. She has covering over her eyes. HEENT: Head is atraumatic, normocephalic Cranial nerves: 2-12 grossly intact. Motor: The pt is moving all 4 extremities - Labs CBC & Chem 7: 07/18/23 04:43 07/18/23 04:43 Labs: Abnormal Lab Results - Last 24 Hours (Table) 07/18/23 07/18/23 Range/Units 04:43 04:43 Eosinophils # 0 L (0.04-0.35) X 10*3/uL Anion Gap 13.10 H (4.00-12.00) mmol/L Glucose 128 H (70-110) mg/dL Total Bilirubin <0.2 L (0.3-1.2) mg/dL Globulin 3.5 H (1.6-3.3) g/dL Albumin/Globulin Ratio 1.11 L (1.60-3.17) Ratio Microbiology - Last 24 Hours (Table) 07/14/23 13:50 CSF Gram Stain - Preliminary Cerebral Spinal Fluid CSF Culture - Preliminary Assessment and Plan Assessment: Aseptic meningitis, likely due to adverse effect of IVIG. Patient has received 2/3 doses of the loading dose of IVIG, and could not complete the course because of headache. Continued intractable headache * Small fiber neuropathy, just started treatment with IVIG * Possible UTI * History of POTS syndrome. * History of hypercoagulable state because of control pills and recent IVIG. * Rash, probably drug ALLERGY Plan: Patient has failed all medications tried as mentioned previously. She continues to have headache 04/26, goes up further with nausea vomiting, when she stands up or sits. She has developed some post spinal headache component as well. Discussed with patient and her mom. We will hold off on epidural blood patch in at this time. Discussed blood patch with anesthesia. Will start IV Caffiene q8hrs x 3 doses * CSF consistent with aseptic meningitis. CSF shows WBC 33, out of which 97% mononuclear in 3% polynuclear cells. RBCs 51. Total protein is 29 which is normal, and glucose 71. Comprehensive viral panel came back negative. MS panel, CSF MANSI level pending. * MRV head normal. No evidence of cerebral venous sinus thrombosis. I reviewed it with the radiologist Dr. Shah. He mentions it is a poor study. However the current MRI of the brain shows patent venous sinuses. Also that lumbar puncture performed initially had low normal intracranial pressure, as with cerebral venous sinus thrombosis, one would expect very high intracranial pressure. Therefore venous science from was is appears unlikely. I discussed all radiology films Dr. hSah. It appears patient has probable aseptic meningitis. CT head was performed today, which was negative for any subarachnoid hemorrhage. Also, CSF showed only 51 RBCs, which is not typical ly seen with subarachnoid hemorrhage. * CTA of head and neck revealed no evidence of dissection of the cervical internal carotid arteries or vertebral arteries or any evidence of significant stenosis at the carotid bifurcations. No evidence of intracranial high-grade stenosis or intracranial aneurysm. * MRI of the brain with and without contrast reported high FLAIR signal in the sulci bilaterally. Consider repeat CT brain noncontrast to rule out interval hemorrhage, however felt it to be less likely given lack of intrinsic high signal on the T1 images. Correlate for etiology such as vasculitis and other vascular etiologies with blood products not excluded. MRA was recommended. Patient already had CTA head and neck performed recently which was normal. No indication for repeat MRI at this time. * Heparin 5000 units subcu every 12 hours for DVT prophylaxis. We will change it to 5000 units subcu every 8 hours, because patient is mostly bedbound with limited mobility. * Patient has possible UTI, and patient switched to Levaquin from ceftriaxone. ID following. * Hold IVIG for now, until patient has followed up with her neurologist. * Will investigate transfer to [facility], for plasma exchange Time with Patient: Greater than 30 (spent 35 minutes)
[2023-07-18] MEDS: CAFFEINE-SODIUM BENZOATE 500 MG in SODIUM CHLORIDE 0.9% 1,000 ML IVPB SCH ×2 (14:46→22:28)
[2023-07-18 15:13] LABS: Appearance,Urine Clear (Clear); Color,Urine Yellow; Glucose,Urine (UA) Negative (Negative); Ketones,Urine Trace (Negative); Specific Gravity,Urine 1.015 (1.001-1.035)
[2023-07-18 15:14] LABS: Bilirubin,Urine Negative (Negative); Blood,Urine Negative (Negative); Leukocyte Esterase,Urine Negative (Negative); Nitrite,Urine Negative (Negative); Protein,Urine Negative (Negative); Urobilinogen,Urine <2.0 mg/dL (<2.0)
--- NOTE | 2023-07-18 19:56 | PN ---
PROGRESS NOTE SUBJECTIVE: This is a 23-year-old woman, who was admitted with intractable headache, also had a previous history of multiple neurological abnormalities also. Currently, the lumbar puncture showed mononuclear pleocytosis and the Neurologist recommended to transfer the patient out and our nurse practitioner has been talking to Jay Ortega and as well as [facility] and apparently was accepted, but last night the hospital was told that they were retracting the acceptance, but the patient continues to be symptomatic and having severe headache. No fever. No cough. OBJECTIVE: VITAL SIGNS: Pulse 58, blood pressure 111/75, respirations 16. CHEST: A few scattered rhonchi. ABDOMEN: Soft. NERVOUS SYSTEM: Nonfocal. LABORATORY DATA: Reviewed. ASSESSMENT: 1. Intractable headache, etiology unknown, rule out migrainous episodes. 2. Elevated neutrophils in CSF, possible aseptic meningitis. 3. Status post IVIG infusion. 4. Acute urinary tract infection, present on admission. Urine culture showing Staph epidermidis. 5. Vagina and oral candidiasis. 6. Elevated WBC. 7. Small fiber neuropathy, on IVIG infusion. 8. Postural orthostatic tachycardia syndrome. 9. Elevated ESR and CRP. RECOMMENDATIONS: Recommend to continue current management and continue symptomatic treatment. We would again talk with Jay Luong and other tertiary care center for possible transfer. Otherwise, prognosis continues to be extremely guarded because of multiple complex medical issues. Further recommendations to follow. MMODL / IJN: [id number] /
[2023-07-18] MEDS: MONTELUKAST 10 MG TAB PO SCH (22:03)
[2023-07-18] MEDS: diphenhydrAMINE 25 MG CAP PO PRN (22:28)
[2023-07-19] MEDS: methylPREDNISolone SOD SUCCI 125 MG/2 ML VIAL IV SCH ×4 (05:49→23:26)
[2023-07-19] MEDS: ONDANSETRON 4 MG/2 ML VIAL IVP PRN ×2 (05:49→12:32)
[2023-07-19] MEDS: MORPHINE SULFATE 2 MG/ML SYRINGE IVP PRN (05:50)
[2023-07-19] MEDS: CAFFEINE-SODIUM BENZOATE 500 MG in SODIUM CHLORIDE 0.9% 1,000 ML IVPB SCH (06:12)
[2023-07-19 09:44] LABS: Basophils # (A) 0.06 X 10*3/uL (0.00-0.10); Basophils % (A) 0.5 %; Eosinophils # (A) 0.02 X 10*3/uL (0.04-0.35); Eosinophils % (A) 0.2 %; HCT 40.3 % (37.2-46.3); HGB 13.3 g/dL (12.0-15.0); Lymphocytes # (A) 1.86 X 10*3/uL (0.90-5.00); Lymphocytes % (A) 14.9 %; MCH 29.2 pg (27.0-32.0); MCV 88.4 FL (80.0-97.0); Monocytes # (A) 0.73 X 10*3/uL (0.20-1.00); Monocytes % (A) 5.8 %; NRBC Per 100 WBC 0 X 10*3/uL (0.00-0.01); Neutrophils # (A) 9.58 X 10*3/uL (1.80-7.70); Neutrophils % (A) 76.8 %; Platelet Count 253 X 10*3/uL (140-440); RBC 4.56 X 10*6/uL (4.10-5.20); RDW 12.2 % (11.5-14.5); WBC 12.48 X 10*3/uL (4.50-10.00)
[2023-07-19 09:53] LABS: ALT 32 U/L (8-44); AST 20 U/L (13-35); Albumin 3.5 g/dL (3.8-4.9); Albumin/Globulin Ratio 1.13 Ratio (1.60-3.17); Alkaline Phosphatase 51 U/L (41-126); BUN/Creat Ratio 10.67 Ratio (12.00-20.00); Blood Urea Nitrogen 6.4 mg/dL (9.0-27.0); Calcium 8.9 mg/dL (8.7-10.3); Carbon Dioxide 21.5 mmol/L (21.6-31.8); Chloride 107 mmol/L (96-109); Globulin 3.1 g/dL (1.6-3.3); Glucose 120 mg/dL (70-110); Potassium 3.8 mmol/L (3.5-5.5); Sodium 138 mmol/L (135-145); Total Bilirubin <0.2 mg/dL (0.3-1.2); Total Protein 6.6 g/dL (6.2-8.2)
[2023-07-19] MEDS: HYDROmorphone 1 MG/ML 1 ML SYRINGE IVP PRN ×4 (10:08→23:27)
[2023-07-19] MEDS: NYSTATIN 100,000 UNIT/ML SUSP 500,000 UNIT/5 ML CUP PO SCH ×4 (10:08→20:15)
[2023-07-19] MEDS: diphenhydrAMINE 25 MG CAP PO PRN ×3 (10:08→23:27)
[2023-07-19] MEDS: OXcarbazepine 150 MG TAB PO SCH (10:09)
[2023-07-19] MEDS: PANTOPRAZOLE 40 MG TABLET PO SCH ×2 (10:09→20:12)
[2023-07-19] MEDS: LEVOFLOXACIN 500 MG TAB PO SCH (10:09)
[2023-07-19] MEDS: HEPARIN SODIUM,PORCINE 5,000 UNIT/ML 1 ML VIAL SQ SCH ×3 (10:09→23:27)
[2023-07-19] MEDS: NON FORMULARY DRUG (Ivabradine Hcl [Corlanor] 5 MG Tablet) PO SCH ×2 (10:10→20:11)
[2023-07-19] MEDS: CYANOCOBALAMIN 500 MCG TAB PO SCH (10:10)
[2023-07-19] MEDS: DOCUSATE 100 MG CAP PO PRN (12:33)
[2023-07-19] MEDS: methocarbamoL 500 MG TAB PO PRN (13:25)
--- NOTE | 2023-07-19 15:59 | P.PN ---
Subjective Progress Note Date: 07/18/23 Principal diagnosis: Reason for follow-up is UTI Patient is a 23-year-old female with a past medical history significant for ovarian cyst anxiety disorder, small fiber neuropathy for the patient was started on IVIG infusion, presented to hospital with headache nausea vomiting she also have some urinary symptoms positive UA concerning for symptomatic urinary tract infection On today's evaluation that is 07/18/2023 the patient continues to be afebrile, the patient is breathing comfortably on room air and denies any shortness of breath, the patient denies chest pain or cough, patient denies abdominal pain, no nausea/vomiting or diarrhea. Main symptom remains to be feeling weak and headache patient did have a white count is 7.09, creatinine 0.7, patient did have an LP with elevated cell count of 33 predominantly mononuclear glucose 71 protein is 29 Objective - Vital Signs Vital signs: Vital Signs Temp 98.3 F 07/18/23 07:35 Pulse 58 L 07/18/23 07:35 Resp 16 07/18/23 07:35 BP 111/72 07/18/23 07:35 Pulse Ox 98 07/18/23 07:35 FiO2 Intake & Output 07/17/23 07/18/23 07/18/23 18:59 06:59 18:59 Intake Total 236 Balance 236 Weight 56.699 kg Intake: Oral 236 Other: Voiding Method Toilet # Voids 3 1 - Exam GENERAL DESCRIPTION: Young female lying in bed in no distress RESPIRATORY SYSTEM: Unlabored breathing , clear to auscultation anteriorly HEART: S1 S2 regular rate and rhythm , ABDOMEN: Soft , no tenderness EXTREMITIES: No edema feet - Labs CBC & Chem 7: 07/19/23 05:57 07/19/23 05:57 Labs: Abnormal Lab Results - Last 24 Hours (Table) 07/18/23 07/18/23 Range/Units 04:43 04:43 Eosinophils # 0 L (0.04-0.35) X 10*3/uL Anion Gap 13.10 H (4.00-12.00) mmol/L Glucose 128 H (70-110) mg/dL Total Bilirubin <0.2 L (0.3-1.2) mg/dL Globulin 3.5 H (1.6-3.3) g/dL Albumin/Globulin Ratio 1.11 L (1.60-3.17) Ratio Microbiology - Last 24 Hours (Table) 07/14/23 13:50 CSF Gram Stain - Preliminary Cerebral Spinal Fluid CSF Culture - Preliminary Assessment and Plan (1) Urinary tract infection Current Visit: Yes Status: Acute Code(s): N39.0 - URINARY TRACT INFECTION, SITE NOT SPECIFIED SNOMED Code(s): 93375212 (2) Leukocytosis Current Visit: Yes Status: Acute Code(s): D72.829 - ELEVATED WHITE BLOOD C ELL COUNT, UNSPECIFIED SNOMED Code(s): 619444937 Plan: 1patient is in the hospital predominantly with the headache , patient did have LP and suspicious for possible aseptic meningitis currently being managed by neurology and is on Solu-Medrol 2-patient did have some urinary symptoms , positive UA concerning for UTI , urine culture have been finalized as staph epi that is oxacillin resistant patient to continue with oral Levaquin t 3- leukocytosis possibly related to steroids and the patient white count has normalized 4-oral thrush to continue with the nystatin swish and swallow Family the bedside and multiple questions concerned were answered Dictation was produced using [employer] dictation software. please excuse any grammatical, word or spelling errors. Time with Patient: Less than 30
--- NOTE | 2023-07-19 16:01 | P.PN ---
Subjective Progress Note Date: 07/19/23 Principal diagnosis: Reason for follow-up is UTI Patient is a 23-year-old female with a past medical history significant for ovarian cyst anxiety disorder, small fiber neuropathy for the patient was started on IVIG infusion, presented to hospital with headache nausea vomiting she also have some urinary symptoms positive UA concerning for symptomatic urinary tract infection On today's evaluation that is 07/19/2023 the patient denies having any fever or any chills, still complaining of feeling feeling weak and headache however minimal improvement in her symptoms nausea but no vomiting no abdominal pain or diarrhea still complaining of some burning of urine patient did have a white count is 12.48, creatinine 0.6, patient did have an LP with elevated cell count of 33 predominantly mononuclear glucose 71 protein is 29 Objective - Vital Signs Vital signs: Vital Signs Temp 97.8 F 07/19/23 14:40 Pulse 60 07/19/23 14:40 Resp 16 07/19/23 14:40 BP 107/65 07/19/23 14:40 Pulse Ox 99 07/19/23 14:40 FiO2 Intake & Output 07/18/23 07/19/23 07/19/23 18:59 06:59 18:59 Intake Total 118 Balance 118 Intake: Oral 118 Other: Voiding Method Toilet Toilet # Voids 2 1 - Exam GENERAL DESCRIPTION: Young female lying in bed in no distress RESPIRATORY SYSTEM: Unlabored breathing , clear to auscultation anteriorly HEART: S1 S2 regular rate and rhythm , ABDOMEN: Soft , no tenderness EXTREMITIES: No edema feet - Labs CBC & Chem 7: 07/19/23 05:57 07/19/23 05:57 Labs: Abnormal Lab Results - Last 24 Hours (Table) 07/19/23 07/19/23 Range/Units 05:57 05:57 WBC 12.48 H (4.50-10.00) X 10*3/uL Neutrophils # 9.58 H (1.80-7.70) X 10*3/uL Eosinophils # 0.02 L (0.04-0.35) X 10*3/uL Carbon Dioxide 21.5 L (21.6-31.8) mmol/L BUN 6.4 L (9.0-27.0) mg/dL BUN/Creatinine Ratio 10.67 L (12.00-20.00) Ratio Glucose 120 H (70-110) mg/dL Total Bilirubin <0.2 L (0.3-1.2) mg/dL Albumin 3.5 L (3.8-4.9) g/dL Albumin/Globulin Ratio 1.13 L (1.60-3.17) Ratio Microbiology - Last 24 Hours (Table) 07/14/23 13:50 CSF Gram Stain - Preliminary Cerebral Spinal Fluid CSF Culture - Preliminary Assessment and Plan (1) Urinary tract infection Current Visit: Yes Status: Acute Code(s): N39.0 - URINARY TRACT INFECTION, SITE NOT SPECIFIED SNOMED Code(s): 20905711 (2) Leukocytosis Current Visit: Yes Status: Acute Code(s): D72.829 - ELEVATED WHITE BLOOD CELL COUNT, UNSPECIFIED SNOMED Code(s): 712024377 Plan: 1patient is in the hospital predominantly with the headache , patient did have LP and suspicious for possible aseptic meningitis currently being managed by neurology and is on Solu-Medrol 2-patient did have some urinary symptoms , positive UA concerning for UTI , urine culture have been finalized as staph epi that is oxacillin resistant patient to continue with oral Levaquin 3- leukocytosis possibly related to steroids and will be monitored closely 4-patient with oral thrush to continue with the nystatin swish and swallow Family the bedside and multiple questions concerned were answered Dictation was produced using Vis[employer] dictation software. please excuse any grammatical, word or spelling errors. Time with Patient: Less than 30
--- NOTE | 2023-07-19 17:03 | P.PN ---
Subjective Progress Note Date: 07/19/23 The pt is a 23 y/o female who is seen in neurologic follow up on 2022, in cross coverage for Dr. Landaverde via teleneurology. The chart has been reviewed. The pt reportedly caries a diagnosis of small fiber neuropathy and received her first dose of IVIgG. She experienced significant side effects and currently has an aseptic meningitis. The pt has been experiencing severe, intractable headache since prior to admission. The current headache is a 9/10. She does note that the pain is worse with sitting and standing. She has been receiving Dilaudid which provides minimal relief and causes itching. The pt feels the need to shower, because of the itching. While standing, she becomes nauseated and the pain is worse. Because of the adverse reaction to IVIgG, the pt would potentially benefit from plasma pheresis. Attempts have been made to transfer the pt to [facility] for this procedure. Unfortunately, it cannot be performed at our facility. MRIs, MRVs and CT scans have been personally reviewed. The pt is again seen in neurologic follow up on 2022, via teleneurology. She is up in the chair today. She reports feeling slightly better. She does not endorse significant improvement in her headache, with the IV caffeine. The morphine reportedly caused nausea. According to the pt's mother, she has slept very little since coming into the hospital. Objective - Vital Signs Vital signs: Vital Signs Temp 97.8 F 07/19/23 14:40 Pulse 60 07/19/23 14:40 Resp 16 07/19/23 14:40 BP 107/65 07/19/23 14:40 Pulse Ox 99 07/19/23 14:40 FiO2 Intake & Output 07/18/23 07/19/23 07/19/23 18:59 06:59 18:59 Intake Total 118 Balance 118 Intake: Oral 118 Other: Voiding Method Toilet Toilet # Voids 2 1 - Exam General: The pt is in the bedside chair. She has her eyes open. She even smiles. She looks better today. She answers questions. HEENT: Head is atraumatic, normocephalic Cranial nerves: 2-12 grossly intact. Motor: The pt is moving all 4 extremities - Labs CBC & Chem 7: 07/19/23 05:57 07/19/23 05:57 Labs: Abnormal Lab Results - Last 24 Hours (Table) 07/19/23 07/19/23 Range/Units 05:57 05:57 WBC 12.48 H (4.50-10.00) X 10*3/uL Neutrophils # 9.58 H (1.80-7.70) X 10*3/uL Eosinophils # 0.02 L (0.04-0.35) X 10*3/uL Carbon Dioxide 21.5 L (21.6-31.8) mmol/L BUN 6.4 L (9.0-27.0) mg/dL BUN/Creatinine Ratio 10.67 L (12.00-20.00) Ratio Glucose 120 H (70-110) mg/dL Total Bilirubin <0.2 L (0.3-1.2) mg/dL Albumin 3.5 L (3.8-4.9) g/dL Albumin/Globulin Ratio 1.13 L (1.60-3.17) Ratio Microbiology - Last 24 Hours (Table) 07/14/23 13:50 CSF Gram Stain - Preliminary Cerebral Spinal Fluid CSF Culture - Preliminary Assessment and Plan Assessment: -Aseptic meningitis, likely due to adverse effect of IVIG. Patient has received 2/3 doses of the loading dose of IVIG, and could not complete the course because of headache. -Continued intractable headache, mild improvement * Small fiber neuropathy, just started treatment with IVIG * Possible UTI * History of POTS syndrome. * History of hypercoagulable state because of control pills and recent IVIG. * Rash, probably drug ALLERGY Plan: Will begin Robaxin for muscle tension/headache * CSF consistent with aseptic meningitis. CSF shows WBC 33, out of which 97% mononuclear in 3% polynuclear cells. RBCs 51. Total protein is 29 which is normal, and glucose 71. Comprehensive viral panel came back negative. MS panel, CSF MANSI level pending. * MRV head normal. No evidence of cerebral venous sinus thrombosis. I reviewed it with the radiologist Dr. Shah. He mentions it is a poor study. However the current MRI of the brain shows patent venous sinuses. Also that lumbar puncture performed initially had low normal intracranial pressure, as with cerebral venous sinus thrombosis, one would expect very high intracranial pressure. Therefore venous science from was is appears unlikely. I discussed all radiology films Dr. Shah. It appears patient has probable aseptic meningitis. CT head was performed today, which was negative for any subarachnoid hemorrhage. Also, CSF showed only 51 RBCs, which is not typically seen with subarachnoid hemorrhage. * CTA of head and neck revealed no evidence of dissection of the cervical internal carotid arteries or vertebral arteries or any evidence of significant stenosis at the carotid bifurcations. No evidence of intracranial high-grade stenosis or intracranial aneurysm. * MRI of the brain with and without contrast reported high FLAIR signal in the sulci bilaterally. Consider repeat CT brain noncontrast to rule out interval hemorrhage, however felt it to be less likely given lack of intrinsic high signal on the T1 images. Correlate for etiology such as vasculitis and other vascular etiologies with blood products not excluded. MRA was recommended. Patient already had CTA head and neck performed recently which was normal. No indication for repeat MRI at this time. * Heparin 5000 units subcu every 12 hours for DVT prophylaxis. We will change it to 5000 units subcu every 8 hours, because patient is mostly bedbound with limited mobility. * Patient has possible UTI, and patient switched to Levaquin from ceftriaxone. ID following. * Hold IVIG for now, until patient has followed up with her neurologist. * Will investigate transfer to [facility], for plasma exchange * * Dr. Shreyas Montalvo will assume neurologic coverage of this pt as of 2022 Time with Patient: Less than 30
--- NOTE | 2023-07-19 19:53 | PN ---
PROGRESS NOTE DATE OF SERVICE: 07/19/2023 SUBJECTIVE: This is a 23-year-old woman with a past medical history of multiple medical problems, admitted with severe headache. The patient is rating the headache as 7/10. The patient is apparently accepted and then refused by [facility] in [place] on Thursday. No chest pain. No palpitation. PHYSICAL EXAMINATION: VITAL SIGNS: Pulse is 52, blood pressure 124/78, respirations 16. CHEST: Clear to auscultation. CARDIOVASCULAR: S1 and S2 muffled. ABDOMEN: Soft. NERVOUS SYSTEM: Nonfocal. LABORATORY DATA: Reviewed. WBC 12.48. ASSESSMENT: 1. Intractable headache, etiology unknown. Rule out migrainous episodes. 2. Elevated neutrophils in cerebrospinal fluid, possibly septic meningitis. 3. Status post IVIG infusion. 4. Acute urinary tract infection present on admission. Urine culture is showing Staphylococcus epidermidis. 5. Vaginal and oral candidiasis. 6. Increased WBC. 7. Small fiber neuropathy, on IVIG infusion. 8. Postural orthostatic tachycardia syndrome. 9. Elevated ESR and CRP. RECOMMENDATIONS: Recommend to continue current medical management. Continue symptomatic treatment. Otherwise, tomorrow, we will again talk with [facility] for possible transfer. Other than that, closely follow with Neurology. Prognosis is guarded. Further recommendations to follow. MMODL / IJN: [id number] /
[2023-07-19] MEDS: amLODIPine 2.5 MG TAB PO SCH (20:12)
[2023-07-19] MEDS: MONTELUKAST 10 MG TAB PO SCH (20:12)
[2023-07-20] MEDS: methocarbamoL 500 MG TAB PO PRN ×3 (00:39→21:18)
[2023-07-20] MEDS: HYDROmorphone 1 MG/ML 1 ML SYRINGE IVP PRN ×4 (05:43→21:18)
[2023-07-20] MEDS: methylPREDNISolone SOD SUCCI 125 MG/2 ML VIAL IV SCH ×4 (05:44→23:29)
[2023-07-20] MEDS: NON FORMULARY DRUG (Ivabradine Hcl [Corlanor] 5 MG Tablet) PO SCH ×2 (08:11→20:12)
[2023-07-20] MEDS: CYANOCOBALAMIN 500 MCG TAB PO SCH (08:22)
[2023-07-20] MEDS: NYSTATIN 100,000 UNIT/ML SUSP 500,000 UNIT/5 ML CUP PO SCH ×4 (08:22→21:18)
[2023-07-20] MEDS: LEVOFLOXACIN 500 MG TAB PO SCH (08:23)
[2023-07-20] MEDS: HEPARIN SODIUM,PORCINE 5,000 UNIT/ML 1 ML VIAL SQ SCH ×2 (08:23→16:44)
[2023-07-20] MEDS: OXcarbazepine 150 MG TAB PO SCH (08:23)
[2023-07-20] MEDS: PANTOPRAZOLE 40 MG TABLET PO SCH ×2 (08:23→20:10)
[2023-07-20] MEDS: Acetaminophen-Codeine 300-30mg TAB PO PRN (08:23)
[2023-07-20] MEDS: ONDANSETRON 4 MG/2 ML VIAL IVP PRN (11:04)
[2023-07-20] MEDS: SODIUM CHLORIDE 0.9% 1,000 ML IV SCH (11:24)
[2023-07-20 15:36] VITALS: RESP 16
--- NOTE | 2023-07-20 17:02 | P.PAINPG ---
Objective - Vital Signs Vital signs: Vital Signs Temp 98.0 F 07/20/23 14:45 Pulse 70 07/20/23 14:45 Resp 16 07/20/23 14:45 BP 115/73 07/20/23 14:45 Pulse Ox 98 07/20/23 14:45 FiO2 Intake & Output 07/19/23 07/20/23 07/20/23 18:59 06:59 18:59 Intake Total 118 708 Balance 118 708 Intake: Oral 118 708 Other: Voiding Method Toilet Toilet # Voids 3 1 - Labs CBC & Chem 7: 07/19/23 05:57 07/19/23 05:57 Labs: Microbiology - Last 24 Hours (Table) 07/14/23 13:50 CSF Gram Stain - Final Cerebral Spinal Fluid CSF Culture - Final PQRS Measure Charge Sheet Comment: HISTORY OF PRESENT ILLNESS: A 23 yr old inpatient female since 07/11/23 as a referral from [facility]ONE presents today w severe, intractable GARIBAY secondary to IVIG infusion for Small Fiber Neuropathy for evaluation. Pt also has accompanying neck tenderness and blurry vision which started immediately after her second IVIG infusion. Pt has had numerous studies, particularly Lumbar Puncture has findings consistent with aseptic meningitis. Pt states pain level is constant at 8-10/10 in intensity, localized throughout the head and cervical spine, throbbing in character without shooting pain. Pain is provoked by light, sounds and movements. Pain is alleviated slightly by medications which include Dilaudid 1mg IVP q4h prn, Tramadol 50mg PO q6h prn, Toradol 15mg/mL 1mL IVP q6h prn, Fioricet and Tylenol #3 300-30mg prn. Narcan is on file. PMH: OA, Small Fiber Neuropathy, Pots Syndrome, Anxiety PSH: Ovarian Cyst, Adenoidectomy, Cholecystectomy, L Knee Surgery SH: Negative x3 FH: Mo- Damián's. Fa- HTN, DM II. All: See list Meds: See list REVIEW OF ORGAN SYSTEMS: CONSTITUTIONAL: No fevers or chills. No recent weight loss. NEUROLOGICAL: + numbness and tingling along the distal extremities. No seizure disorders or headaches. MUSCULOSKELETAL: + pain PSYCHIATRIC: Denies current depression or suicidal thoughts. Physical Examinations : Constitutional : Cooperative , not in acute distress . Neurologic : Cranial nerve II to XII intact. No focal neurological deficits. Psychiatric : alert & oriented x 3. Matching mood & appropriate affect. Judgment & insight intact. Musculoskeletal : Cervical Spine Motor strength in the deltoid and biceps: Normal right side. Normal Left side Motor strength biceps and the wrist extensors: Normal right side . Normal left side Motor strength in the triceps muscle: Normal right side. Normal left side Deep tendon reflexes: Normal at the biceps. Normal at Brachioradialis. Normal at triceps Vertebral body tenderness to deep palpation over Cervical facet loading test: positive bilaterally Lumbar spine Motor strength lower extremities ,thigh and legs 5/5 Right side , 5/5 Left side Deep tendon reflexes : Normal Knee Jerk. Normal Ankle Jerk Vertebral body tenderness over Hurd Test positive Lumbar facet Loading Test: positive Right / positive Left Range of motion of the lumbar spine Flexion 30 degrees, extension 10 degrees Straight Leg Raise test: Left/ Right positive at degree Sacral spine : Severe tenderness over the Sacroiliac joint: right side / left side Range of motion: Flexion of the lumbar spine <60 degrees Range of motion: Extension of the lumbar spine <20 degrees Gaenslen's Test positive Imaging: CT noncontrast of the brain from 07/14/[address] noncontrast of head and neck from 07/14/23 reviewed MRI with/without contrast of brain from 07/16/23 reviewed Assessment/ Plan : Intractable GARIBAY s/p IVIG infusion 2/3, likely aseptic meningitis Recommendation of blood patch procedure. Hold Toradol, Heparin prior to procedure. Discussion at length w pt, mother and female mergers and acquisitions associate at side. All questions answered. I have spent greater than 30 minutes on patient care today. Dr Duque was available by phone for the evaluation of this patient. The time was used to review the medical records including relevant urine studies and Prescription his tory (MAPs), review of the available imaging, evaluation and examination of the patient, coordination of care with the medical staff and if applicable referring physicians, as well as creation of the medical record - Pain Location Posterior Head Non-Pharmacological Interventions: Distraction Pharmacological Interventions: Discuss Pain Med Options Pain Comment: see MAR PQRS Narrative: Smoking Status Never smoker Blood Pressure [Right Arm] 115/73 Blood Pressure [Left Arm] 122/81 Blood Pressure 108/58 Pain Intensity [Posterior Head 7 ] Pain Intensity 7 Pain Scale Used Numeric (1 - 10) Scale Used Numeric (1 - 10) Home Medications: Ambulatory Orders medroxyPROGESTERone [Depo-Provera] 150 mg IM Q84D 06/25/20 Ivabradine HCl [Corlanor] 5 mg PO BID 01/15/23 Montelukast Sodium 10 mg PO HS 01/15/23 Omeprazole [PriLOSEC] 20 mg PO BID 01/15/23 amLODIPine BESYLATE 2.5 mg PO HS 01/15/23 Copper 2mg Tablet 1 tab PO DAILY 07/11/23 Cyanocobalamin (Vitamin B-12) [Vitamin B-12] 1,000 mcg PO DAILY 07/11/23 OXcarbazepine [Trileptal] 150 mg PO DAILY 07/11/23 Controlled Substance Measures - Controlled Substance Measures Is patient prescribed a controlled substance at discharge?: No
[2023-07-20] MEDS: diphenhydrAMINE 25 MG CAP PO PRN ×2 (17:15→23:29)
--- NOTE | 2023-07-20 17:59 | P.PN ---
Subjective Progress Note Date: 07/20/23 I'm seeing the patient for the first time during this admission. Please refer to Dr. Landaverde's and Zay's notes for further details. It seems that the patient has diagnosis of small fiber neuropathy that's newly diagnosed by [facility] neurology team. As she had a punch biopsy. It seems that the patient had IVIG started just a day after Thanksgi and she had the 2 IVIG's on Thursday and Thursday post stents given and that as a result of the IVIG patient started having headaches and feels her vision is blurry. The headache is over the frontal temporal occipital region and she states that was 9 initially and currently 7. She would have 15 minutes of relief. She does have photophobia and phonophobia. She did have nausea but no vomiting. She had extensive workup in our facility and was felt the patient had aseptic meningitis. Again patient feels her headache is a 7 which is minimally better compared to initial presentation. She is on IV Solu-Medrol 125 g every 6 hours. This etiology is consulted and the patient is pending blood patch tomorrow. She stated that the caffeine and Fioricet has not helped. Karson Haro recommended the patient to be transferred to [facility] for [facility] sma exchange was notified by the primary team DAY CARE WORKER that she was accepted she is on low on the list. Objective - Vital Signs Vital signs: Vital Signs Temp 98.0 F 07/20/23 14:45 Pulse 70 07/20/23 14:45 Resp 16 07/20/23 14:45 BP 115/73 07/20/23 14:45 Pulse Ox 98 07/20/23 14:45 FiO2 Intake & Output 07/19/23 07/20/23 07/20/23 18:59 06:59 18:59 Intake Total 118 708 Balance 118 708 Intake: Oral 118 708 Other: Voiding Method Toilet Toilet # Voids 3 1 - Exam GENERAL: The patient is lying in bed and is not in acute distress. NEUROLOGICAL: Higher mental function: The patient is awake, alert, oriented to self, place and time. Patient is following commands. No aphasia and no neglect. Cranial nerves: The pupils are round, equal and reactive to light and accommodation. Visual llanos are full to confrontation throughout. Extraocular movement is intact no nystagmus is noted. Facial sensation is normal to touch throughout. The facial strength is normal throughout. Hearing is normal bilaterally to hand rub. Tongue is midline and moved [id number] without any difficulty. No dysarthria is noted. Shoulder shrug is normal bilaterally. Motor: Giat is normal. The strength is 5 over 5 throughout. Normal tone and bulk. Cerebellum: Normal finger to nose heel to serrano bilaterally. Sensation: Sensation is normal to touch throughout. Reflexes (right/left): 2+ throughout. Plantars are downgoing bilaterally. - Labs CBC & Chem 7: 07/19/23 05:57 07/19/23 05:57 Labs: Microbiology - Last 24 Hours (Table) 07/14/23 13:50 CSF Gram Stain - Final Cerebral Spinal Fluid CSF Culture - Final Assessment and Plan Assessment: * Aseptic meningitis, likely due to adverse effect of IVIG. Patient has received 2/3 doses of the loading dose of IVIG, and could not complete the course because of headache. * Continued intractable headache, mild improvement * Small fiber neuropathy, just started treatment with IVIG * Possible UTI * History of POTS syndrome. * History of hypercoagulable state because of control pills and recent IVIG. * Rash, probably drug ALLERGY Plan: * CSF consistent with aseptic meningitis. CSF shows WBC 33, out of which 97% mononuclear in 3% polynuclear cells. RBCs 51. Total protein is 29 which is normal, and glucose 71. Comprehensive viral panel came back negative. MS panel, CSF MANSI level pending. * MRV head normal. No evidence of cerebral venous sinus thrombosis. I reviewed it with the radiologist Dr. Shah. He mentions it is a poor study. However the current MRI of the brain shows patent venous sinuses. Also that lumbar puncture performed initially had low normal intracranial pressure, as with cerebral venous sinus thrombosis, one would expect very high intracranial pressure. Therefore venous science from was is appears unlikely. I discussed all radiology films Dr. Shah. It appears patient has probable aseptic meningitis. CT head was performed today, which was negative for any suba rachnoid hemorrhage. Also, CSF showed only 51 RBCs, which is not typically seen with subarachnoid hemorrhage. * CTA of head and neck revealed no evidence of dissection of the cervical internal carotid arteries or vertebral arteries or any evidence of significant stenosis at the carotid bifurcations. No evidence of intracranial high-grade stenosis or intracranial aneurysm. * MRI of the brain with and without contrast reported high FLAIR signal in the sulci bilaterally. Consider repeat CT brain noncontrast to rule out interval hemorrhage, however felt it to be less likely given lack of intrinsic high signal on the T1 images. Correlate for etiology such as vasculitis and other vascular etiologies with blood products not excluded. MRA was recommended. Patient already had CTA head and neck performed recently which was normal. No indication for repeat MRI at this time. * Patient has possible UTI, and patient switched to Levaquin from ceftriaxone. ID following. * Hold IVIG for now, until patient has followed up with her neurologist. * Patient had no relief with Fioricet or caffeine IV. He is on IV Solu-Medrol 125 milligrams IV every [address] Landaverde. * She is on Robaxin 500 mg 1 tablet 4 times a day when necessary. * On Dilaudid 1 mg every 4 hours when necessary started by primary team. * Pain team is consulted and that she's bending to have blood patch tomorrow. * Dr. Landaverde is recommended the patient to be transferred for plasma exchange and she is accepted to be transferred to [facility]. * Defer the rest of the medical measurement the primary team Plan was discussed with the patient and her mother was at bedside Time with Patient: Less than 30
[2023-07-20] MEDS: MONTELUKAST 10 MG TAB PO SCH (20:10)
[2023-07-20] MEDS: DOCUSATE 100 MG CAP PO PRN (20:10)
[2023-07-20] MEDS: amLODIPine 2.5 MG TAB PO SCH (20:10)
[2023-07-20 21:15] VITALS: BP 121/79; PULSE 78; TEMP 98.7
--- NOTE | 2023-07-20 21:15 | P.PN ---
Subjective Progress Note Date: 07/20/23 This is a pleasant 23-year-old female who follows with Dr. Mohamud in the outpatient setting and has recently been following with neurology at of [facility] and was diagnosed with small fiber neuropathy and has received 2 transfusions of IVIG and during her second transfusion last week prior to admission here she started developing and experiencing intractable headache along with neck and upper back pain and is being closely followed by neurology undergoing further workup including LP today which is currently pending. Patient has had venogram as well as brain CT which has been negative and patient is maintained on large dose IV steroids every 6 hours and continued pain medications with no relief. Patient also having symptoms of urinary tract infection being maintained on ceftriaxone and infectious disease is following. Culture has been sent and pending at this time. Given patient's continued symptoms with no relief, have discussed the case with neurology and recommended transfer to tertiary treatment center to [facility] for continuity of care and higher level of care. Patient is currently afebrile and white count is elevated, multifactorial possibly steroid effect as well as infection. Patient denies chest pain or shortness of breath currently room air. Other labs have been reviewed and within normal limits. Discussed with family and patient and are agreeable with transfer. 07/17/2023 Patient is seen in follow-up continues to be awaiting a bed at [facility] and transfer team was notified inquiring about a bed with no beds available currently and transfer team will contact the unit once a bed is available. Awaiting pending discharges from the facility. Patient being followed closely by neurology underwent repeat CT of the brain showing no acute intracranial hemorrhage mass effect or midline shift noted. Patient continues to have extreme headache reporting 9/10 and no improvement and also experiencing some nausea associated with this. Patient was maintained on ceftriaxone with infectious disease following for urinary tract infection and urine culture finalized showing Staphylococcus epidermidis and we'll transition to oral Levaquin starting on 07/18/2023 per infectious disease recommendations. Patient continued on IV steroids as well as pain medications and will continue to monitor closely. Patient having some irritation and itchiness in the vaginal area likely secondary to yeast and will give a dose of Diflucan. Patient is also maintained on nystatin with irritation and thrush-like appearance on oral mucosa. Patient has been encouraged to increase activity as tolerated as she is mostly lying in bed all day although she reports she feels nauseated and having increasing headache symptoms when she is up. Encouraged oral intake in small frequent meals. Overall prognosis remains guarded and mother was updated at the bedside and continues to await for about assignment at [facility]. 07/20/2023 Patient is seen in follow-up with mother and father at bedside has undergone thorough neurologic evaluation with infectious disease and neurology following. Attempted reinitiation of a transfer for tertiary treatment to [facility] in [place] as patient was initially accepted at [facility] although that is considered not to be a tertiary treatment and main was notified again and spoke with Dr. Loaiza of neurology out of [facility] in [place] who has accepted the patient to the neuro unit although pending a bed that could potentially take days per neurology. Have consulted pain management as well as psychiatry for evaluation as patient continues to rate her pain as a 9/10 on the pain scale currently. Patient has had no relief with IV caffeine and is continued on IV steroids large dose and other pain medications. Patient is currently afebrile maintained on Levaquin for urinary tract infection with staph epidermidis and infectious disease is following. Patient denies vomiting but has had occasional nausea and appetite has decreased. Patient has been encouraged to get up and walk more frequently and get out of bed more often. Extensive conversation was had with family as well as patient at the bedside regarding treatment plan and overall care. Questions and concerns were answered to the best of our ability. Review of systems: Constitutional: reports of fatigue, no fever, or chills Cardiovascular: No reports of chest pain or palpitations Respiratory: No reports of shortness of breath or cough GI: reports of nausea, no reports of vomiting, no diarrhea : reports of dysuria and burning with urination and irritation in the vaginal area with itchiness that is somewhat improved Neurovascular: reports of generalized weakness and continued ongoing intractable headache All medications have been reviewed PHYSICAL EXAMINATION: GENERAL: The patient is alert and oriented x4, Well developed, well nourished. HEENT: Pupils are round and equally reacting to light. EOMI. no scleral icterus. No conjunctival pallor. Normocephalic, atraumatic. No pharyngeal erythema. No thyromegaly. CARDIOVASCULAR: S1 and S2 muffled PULMONARY: diminished breath sounds bilaterally with no wheezing or rhonchi noted. ABDOMEN: soft. Nontender on exam. non-distended, normoactive bowel sounds. No palpable organomegaly. MUSCULOSKELETAL: No joint swelling or deformity. EXTREMITIES: No cyanosis, clubbing, or pedal edema. NEUROLOGICAL: Gross neurological examination did not reveal any focal deficits. photosensitive on exam. Diffuse weakness SKIN: No rashes. Assessment: Intractable headache secondary to possible IVIG infusion, rule out migrainous episode Elevated neutrophils on CSF, concerns for aseptic meningitis Acute urinary tract infection, present on admission with culture showing Staphylococcus epidermidis Vaginal and oral Emani Elevated WBC, present on admission possibly secondary to urinary tract infection, improving Small fiber neuropathy, recently started on IVIG infusion this month per her neurologist of [facility] Postural orthostatic tachycardia syndrome Elevated ESR and CRP GI prophylaxis DVT prophylaxis Full code Plan: Recommend to continue with current medications and management with neurology following undergoing workup with concerns of aseptic meningitis and recommending transfer to tertiary treatment and had initially been accepted at [facility] with Dr. Peter and on acceptance was retracted and felt treatment pl an was the same that was being provided at [facility] and given they were at capacity unable to accept the patient. [facility] in [place] was contacted again and spoke with Dr. Loaiza today regarding tertiary treatment center transfer for higher level of care as patient continues to report severe pain and headache with no relief despite multiple measures including IV caffeine and IV steroids along with pain medications. Patient has been accepted and pending a bed that could take days to accommodate per transfer team. Consult placed to pain management for further evaluation and discussion of possible blood patch Psychiatry was also consulted for further evaluation per [facility] recom mendations Patient is status post lumbar puncture with Neutrophils noted to be elevated at 33, causing concern for possible aseptic meningitis per neurology. Family is agreeable with this transfer and aware they are awaiting a bed Patient is continued on antibiotics in the form of Levaquin per ID recommendations for acute urinary tract infection and cultures finalized showing Staphylococcus epidermidis Will follow-up with repeat labs and continue to monitor the patient closely Pain management following recommending to hold Toradol as well as heparin for possible blood patch in a.m. we'll await pain management report Prognosis is guarded The impression and plan of care has been dictated by Bria Robison, nurse practitioner as directed. Dr. Saravanan MD I have performed a history and examination and MDM of this patient, discussed the same with the dictator, and agree with the dictator's assessment and plan as written ,documented as a scribe. Based on total visit time, I have performed more than 50% of the visit. Any additional findings or plans will be noted. Objective - Vital Signs Vital signs: Vital Signs Temp 98.7 F 07/20/23 20:00 Pulse 78 07/20/23 20:00 Resp 16 07/20/23 20:00 BP 121/79 07/20/23 20:00 Pulse Ox 97 07/20/23 20:00 FiO2 Intake & Output 07/20/23 07/20/23 07/21/23 06:59 18:59 06:59 Intake Total 708 Balance 708 Intake: Oral 708 Other: Voiding Method Toilet # Voids 1 5 - Labs CBC & Chem 7: 07/19/23 05:57 07/19/23 05:57 Labs: Microbiology - Last 24 Hours (Table) 07/14/23 13:50 CSF Gram Stain - Final Cerebral Spinal Fluid CSF Culture - Final
--- NOTE | 2023-07-21 04:26 | P.DS ---
Providers Date of admission: 07/11/23 21:58 Expected date of discharge: 07/21/23 Attending physician: Stephanie Coe Consults: 07/12/23 09:20 Consult Physician Urgent Consulting Provider: Kristan Landaverde Consult Reason/Comments: intractable headache post IVIG Do you want consulting provider notified?: Yes 07/13/23 12:28 Consult Physician Urgent Consulting Provider: Tao Alfonso Consult Reason/Comments: elevated crp, uti Do you want consulting provider notified?: Yes 07/18/23 12:07 Consult to Anesthesia Stat Consulting Provider: Anesthesia,Services Consult Reason/Comments: blood patch 07/20/23 11:38 Consult Physician Urgent Consulting Provider: Adolfo Melendez Consult Reason/Comments: anxiety, pain, intractable headache Do you want consulting provider notified?: Yes Primary care physician: Alber Mohamud [facility] Course: Final diagnosis Intractable headache secondary to possible IVIG infusion, rule out migrainous episode Elevated neutrophils on CSF, concerns for aseptic meningitis Acute urinary tract infection, present on admission Elevated WBC, present on admission possibly secondary to urinary tract infection as well as steroid effect Small fiber neuropathy, recently started on IVIG infusion this month per her neurologist of [facility] Postural orthostatic tachycardia syndrome Elevated ESR and CRP GI prophylaxis DVT prophylaxis Full code Discharge disposition Patient is being discharged in a stable condition with guarded prognosis to [facility] in [place]. Patient has been accepted by Dr. Ranjan Loaiza. Patient will follow-up with Dr. Mohamud in the outpatient setting upon discharge. Patient is to continue with IV steroids as well as Levaquin and continue with outpatient follow-up with her neurologist as scheduled. Total time taken is greater than 35 minutes. Hospital course This is a 23-year-old female who was recently admitted with intractable headache status post IVIG infusion and follows with neurologist out of [facility]. Patient undergoing further neurological workup including LP which had elevated neutrophils at 33 on CSF with concerns of aseptic meningitis as well as acute urinary tract infection. Patient is maintained on levaquin along with IV steroids at 125 mg every 6 hours with neurology following closely. Patient continues to have intractable pain with no relief neurology recommending transfer to tertiary treatment for further neurological evaluation. Patient and family are agreeable to the transfer. Transfer initiated and patient has been accepted at [facility] in [place] and Dr. Loaiza. Patient was seen and evaluated by pain management recommending blood patch that was scheduled for tomorrow and initially patient and family wanted to hold the transfer for blood patch little concern of losing the bed at [facility] has agreed upon transfer. Patient is afebrile and white count is trending down and will continue on current medication regimen. Currently no reports of chest pain, shortness of breath, or palpitations. Patient is afebrile. reports of nausea with no vomiting and patient is tolerating diet. Patient will be to [facility] via EMS. Guarded prognosis. Physical exam: Gen: This is a 23-year-old female who is awake, alert and oriented 3, well- developed, well-nourished HEENT: Head is atraumatic, normocephalic. Pupils equal, round. Sclerae is anicteric. NECK: Supple. No JVD. No lymphadenopathy. No thyromegaly. LUNGS: Clear to auscultation. No wheezes or rhonchi. No intercostal retractions. HEART: Regular rate and rhythm. No murmur. ABDOMEN: Soft. Bowel sounds are present. No masses. No tenderness. EXTREMITIES: No pedal edema. No calf tenderness. NEUROLOGICAL: Patient is awake, alert and oriented x3. Cranial nerves 2 through 12 are grossly intact. Please refer to medication reconciliation sheet for a list of medications. The impression and plan of care has been dictated by Bria Robison, Nurse Practitioner as directed. Dr. Saravanan MD I have performed a history and examination and MDM of this patient, discussed the same with the dictator, and agree with the dictator's assessment and plan as written ,documented as a scribe. Based on total visit time, I have performed more than 50% of the visit. Patient Condition at Discharge: Stable Plan - Discharge Summary Discharge Rx Participant: No New Discharge Prescriptions: No Action medroxyPROGESTERone [Depo-Provera] 150 mg IM Q84D amLODIPine BESYLATE 2.5 mg PO HS Ivabradine HCl [Corlanor] 5 mg PO BID OXcarbazepine [Trileptal] 150 mg PO DAILY Cyanocobalamin (Vitamin B-12) [Vitamin B-12] 1,000 mcg PO DAILY Copper 2mg Tablet 1 tab PO DAILY Omeprazole [PriLOSEC] 20 mg PO BID Montelukast Sodium 10 mg PO HS Discharge Medication List medroxyPROGESTERone [Depo-Provera] 150 mg IM Q84D 06/25/20 [History] Ivabradine HCl [Corlanor] 5 mg PO BID 01/15/23 [History] Montelukast Sodium 10 mg PO HS 01/15/23 [History] Omeprazole [PriLOSEC] 20 mg PO BID 01/15/23 [History] amLODIPine BESYLATE 2.5 mg PO HS 01/15/23 [History] Copper 2mg Tablet 1 tab PO DAILY 07/11/23 [History] Cyanocobalamin (Vitamin B-12) [Vitamin B-12] 1,000 mcg PO DAILY 07/11/23 [History] OXcarbazepine [Trileptal] 150 mg PO DAILY 07/11/23 [History] Follow up Appointment(s)/Referral(s): Alber Mohamud MD [Primary Care Provider] - 1-2 days Activity/Diet/Wound Care/Special Instructions: Patient has been accepted by Dr. Peter neurologist from [facility] and will be transferred once bed is available Discharge Disposition: OTHER INSTITUTION NOT DEFINED
[2023-07-21] MEDS ORDERED: FLUCONAZOLE 100 MG TAB PO SCH (09:00)
[2023-07-21] MEDS ORDERED: HEPARIN SODIUM,PORCINE 5,000 UNIT/ML 1 ML VIAL SQ SCH (16:00)
--- NOTE | 2023-07-21 16:48 | P.PN ---
Subjective Progress Note Date: 07/20/23 Principal diagnosis: Reason for follow-up is UTI Patient is a 23-year-old female with a past medical history significant for ovarian cyst anxiety disorder, small fiber neuropathy for the patient was started on IVIG infusion, presented to hospital with headache nausea vomiting she also have some urinary symptoms positive UA concerning for symptomatic urinary tract infection On today's evaluation that is 07/20/2023 the patient remains to be afebrile, the patient is breathing comfortably on room air and no need for supplemental oxygen, the patient denies having any chest pain denies any cough or sputum production, patient denies any abdominal pain no nausea vomiting or any diarrhea, still complaining of weakness and headache patient did have a white count is 12.48, creatinine 0.6 as of 07/19/2023 no CBC was done today, the patient did have a negative UA on 07/18/2023, patient did have an LP with elevated cell count of 33 predominantly mononuclear glucose 71 protein is 29 Objective - Vital Signs Vital signs: Vital Signs Temp 97.5 F L 07/20/23 07:40 Pulse 62 07/20/23 07:40 Resp 17 07/20/23 07:40 BP 122/81 07/20/23 07:40 Pulse Ox 96 07/20/23 07:40 FiO2 Intake & Output 07/19/23 07/20/23 07/20/23 18:59 06:59 18:59 Intake Total 118 590 Balance 118 590 Intake: Oral 118 590 Other: Voiding Method Toilet Toilet # Voids 3 1 - Exam GENERAL DESCRIPTION: Young female lying in bed in no distress RESPIRATORY SYSTEM: Unlabored breathing , clear to auscultation anteriorly HEART: S1 S2 regular rate and rhythm , ABDOMEN: Soft , no tenderness EXTREMITIES: No edema feet - Labs CBC & Chem 7: 07/19/23 05:57 07/19/23 05:57 Labs: Microbiology - Last 24 Hours (Table) 07/14/23 13:50 CSF Gram Stain - Final Cerebral Spinal Fluid CSF Culture - Final Assessment and Plan (1) Urinary tract infection Status: Acute Code(s): N39.0 - URINARY TRACT INFECTION, SITE NOT SPECIFIED SNOMED Code(s): 02137792 (2) Leukocytosis Status: Acute Code(s): D72.829 - ELEVATED WHITE BLOOD CELL COUNT, UNSPECIFIED SNOMED Code(s): 709043437 Plan: 1patient is in the hospital predominantly with the headache , patient did have LP and suspicious for possible aseptic meningitis currently being managed by [facility]rology and is on Solu-Medrol 2-patient did have some urinary symptoms , positive UA concerning for UTI , urine culture have been finalized as staph epi that is oxacillin resistant patient underlying UTI has been adequately treated, patient did have a negative UA on 07/18/2023 Levaquin has been discontinued 3- leukocytosis possibly related to steroids and will be monitored closely 4-patient with oral thrush to continue with the nystatin swish and swallow, we'll add Diflucan Family the bedside and multiple questions concerned were answered Dictation was produced using [employer] dictation software. please excuse any grammatical, word or spelling errors. Time with Patient: Less than 30
[2023-07-22 13:30] LABS: IgG - CSF 2.4 mg/dL (0.0 - 3.4); IgG/Albumin Index (CSF) 0.37 (0.00 - 0.77)
== END 2023-07-21 01:35 | disposition short-term general hospital (02) | DRG 98 ==
LOC: EC 17:39 → OBSVTOIN 21:58 → 6NMEDSUR 21:58
PROVIDERS: ADMIT Hospitalist; ATTEND Hospitalist
PROC: 009U3ZX Drainage of Spinal Canal, Percutaneous Approach, Diagnostic (ICD-10-PCS; principal; 2023-07-15)
DX: G03.0 Nonpyogenic meningitis (principal); B37.0 Candidal stomatitis; D68.69 Other thrombophilia; N39.0 Urinary tract infection, site not specified; B37.31 Acute candidiasis of vulva and vagina; B95.7 Other staphylococcus as the cause of diseases classified elsewhere; G62.9 Polyneuropathy, unspecified; F32.A Depression, unspecified; I10 Essential (primary) hypertension; D72.829 Elevated white blood cell count, unspecified; T50.Z15A Adverse effect of immunoglobulin, initial encounter; T38.0X5A Adverse effect of glucocorticoids and synthetic analogues, initial encounter; F41.9 Anxiety disorder, unspecified; G43.909 Migraine, unspecified, not intractable, without status migrainosus; G90.A Postural orthostatic tachycardia syndrome [POTS]; G97.1 Other reaction to spinal and lumbar puncture; Y84.4 Aspiration of fluid as the cause of abnormal reaction of the patient, or of later complication, without mention of misadventure at the time of the procedure; Z79.52 Long term (current) use of systemic steroids; Z79.899 Other long term (current) drug therapy; Z82.49 Family history of ischemic heart disease and other diseases of the circulatory system; Z71.3 Dietary counseling and surveillance; Z11.52 Encounter for screening for COVID-19
CPT/HCPCS: 36415; 70450; 70496; 70498; 70544; 70553; 74177; 80048; 80053; 81001; 81003; 81025; 82040; 82042; 82164; 82784; 82945; 83873; 83916; 84157; 85025; 85027; 85652; 86038; 86140; 86255; 86431; 87070; 87077; 87086; 87186; 87205; 87252; 87636; 89050; 96361; 96374; 96375; 99285

== ENCOUNTER 2023-09-28 03:44 | Emergency (ER) | payer MEDICAID ==
[2023-09-28] MEDS: diphenhydrAMINE 50 MG/ML 1 ML VIAL IVP STA ×2 (04:16→08:55)
[2023-09-28 04:17] VITALS: RESP 18; TEMP 98.5
[2023-09-28] MEDS: KETOROLAC 15 MG/ML 1 ML VIAL IVP STA (04:17)
[2023-09-28] MEDS: ONDANSETRON 4 MG/2 ML VIAL IVP STA ×2 (04:17→06:47)
--- NOTE | 2023-09-28 04:17 | ED ---
Headache HPI - General Chief Complaint: Headache Stated Complaint: Reaction to medication Time Seen by Provider: 09/28/23 04:08 Mode of arrival: ambulatory Limitations: no limitations - History of Present Illness Initial Comments: This patient is a 23-year-old woman with history of small fiber neuropathy who had an IVIG infusion at home yesterday. The patient has subsequently developed head and neck pain. She had similar following the last IV Ig infusion that she had and she had been diagnosed at that time with aseptic meningitis. The patient has not noted fever or chills. No rash. She has had some nausea associated with the headache. There is photo and phonophobia. No strokelike symptoms. -: hour(s) Onset Description: gradual Location: diffuse Severity: severe Quality: aching Consistency: constant Improves With: nothing Worsens With: light, noise Associated Symptoms: photophobia Treatments Prior to Arrival: none - Related Data Home Medications Medication Instructions Recorded Confirmed medroxyPROGESTERone [Depo-Provera] 150 mg IM Q84D 06/25/20 07/11/23 Ivabradine HCl [Corlanor] 5 mg PO BID 01/15/23 07/11/23 Montelukast Sodium 10 mg PO HS 01/15/23 07/11/23 Omeprazole [PriLOSEC] 20 mg PO BID 01/15/23 07/11/23 amLODIPine BESYLATE 2.5 mg PO HS 01/15/23 07/11/23 Copper 2mg Tablet 1 tab PO DAILY 07/11/23 07/11/23 Cyanocobalamin (Vitamin B-12) 1,000 mcg PO DAILY 07/11/23 07/11/23 [Vitamin B-12] OXcarbazepine [Trileptal] 150 mg PO DAILY 07/11/23 07/11/23 Previous Rx's Medication Instructions Recorded predniSONE [Deltasone] 20 mg PO BID #8 tab 09/28/23 Allergies Allergy/AdvReac Type Severity Reaction Status Date / Time adhesive tape Allergy Rash/Hives Verified 09/28/23 04:01 Review of Systems ROS Statement: Those systems with pertinent positive or pertinent negative responses have been documented in the HPI. ROS Other: All systems not noted in ROS Statement are negative. Constitutional: Denies: fever, chills, weakness Eyes: Reports: eye pain. Denies: vision change ENT: Denies: hearing loss Respiratory: Denies: cough, dyspnea Cardiovascular: Denies: chest pain, syncope Gastrointestinal: Reports: nausea. Denies: abdominal pain, vomiting, diarrhea Genitourinary: Denies: dysuria, hematuria Musculoskeletal: Denies: back pain Skin: Denies: rash Neurological: Reports: headache. Denies: weakness, numbness, confusion Past Medical History Past Medical History: No Reported History Additional Past Medical History / Comment(s): OVARIAN CYST, RECENT RAPID HEART RATE, SOB, CHEST PAIN. POTS SYNDROME, fibroneuropathy, IVIG tx newly started 07/10/23 History of Any Multi-Drug Resistant Organisms: None Reported Past Surgical History: Adenoidectomy, Cholecystectomy, Orthopedic Surgery Additional Past Surgical History / Comment(s): left knee SX Past Anesthesia/Blood Transfusion Reactions: No Reported Reaction, Family History of Problems w/ Anesthesia Additional Past Anesthesia/Blood Transfusion Reaction / Comment(s): MOM HAS PONV Past Psychological History: Anxiety Smoking Status: Never smoker Past Alcohol Use History: None Reported Past Drug Use History: None Reported - Past Family History Mother Family Medical History: No Reported History Additional Family Medical History / Comment(s): Hishimotos Father Family Medical History: Diabetes Mellitus, Hypertension General Exam Limitations: no limitations General appearance: alert, in no apparent distress Head exam: Present: atraumatic, normocephalic Eye exam: Present: normal appearance. Absent: scleral icterus, conjunctival injection ENT exam: Present: normal oropharynx Neck exam: Present: normal inspection Respiratory exam: Present: normal lung sounds bilaterally. Absent: respiratory distress, wheezes, rales, rhonchi, stridor Cardiovascular Exam: Present: regular rate, normal rhythm, normal heart sounds. Absent: systolic murmur, diastolic murmur, rubs, gallop Extremities exam: Present: normal inspection, normal capillary refill. Absent: pedal edema, calf tenderness Back exam: Present: normal inspection Neurological exam: Present: alert, oriented X3, CN II-XII intact. Absent: motor sensory deficit Skin exam: Present: warm, dry, intact, normal color. Absent: rash Course Vital Signs 09/28/23 09/28/23 09/28/23 04:00 05:58 07:47 Temperature 98.5 F Pulse Rate 92 84 93 Respiratory 18 18 18 Rate Blood Pressure 120/73 114/68 128/96 O2 Sat by Pulse 99 97 97 Oximetry Medical Decision Making - Medical Decision Making This patient is a 23-year-old woman presenting with headache following IVIG infusion. She did have similar presentation recently. She does not have any neurologic symptoms. The patient is given medications for headache and she subsequently was feeling better and wanted to go home. She does understand if symptoms do not completely resolve or if any symptoms recur or new symptoms develop she should return emergency department immediately. Was pt. sent in by a medical professional or institution (, PA, MAILROOM MESSENGER, urgent care, hospital, or skilled nursing...) When possible be specific @ -[No] Did you speak to anyone other than the patient for history (EMS, parent, family, police, friend...)? What history was obtained from this source @ -Patient's family contributed to history Did you review nursing and triage notes (agree or disagree)? Why? @ -[I reviewed and agree with nursing and triage notes] Were old charts reviewed (outside hosp., previous admission, EMS record, old EKG, old radiological studies, urgent care reports/EKG's, skilled nursing records)? Report findings @ -[No old charts were reviewed] Differential Diagnosis (chest pain, altered mental status, abdominal pain women, abdominal pain men, vaginal bleeding, weakness, fever, dyspnea, syncope, headache, dizziness, GI bleed, back pain, seizure, CVA, palpatations, mental health, musculoskeletal)? @ -[Differential Headache: Migraine, tension, cluster, carbon monoxide, central venous thrombosis, pension karma temporal arteritis, acute closure glaucoma, intercranial hemorrhage, mastoiditis, sinusitis, head injury, this is not meant to be an all-inclusive list. EKG interpreted by me (3pts min.). @ -[As above] X-rays interpreted by me (1pt min.). @ -[None done] CT interpreted by me (1pt min.). @ -[None done] U/S interpreted by me (1pt. min.). @ -[None done] What testing was considered but not performed or refused? (CT, X-rays, U/S, labs)? Why? @ -[None] What meds were considered but not given or refused? Why? @ -[None] Did you discuss the management of the patient with other professionals (professionals i.e. , PA, MAILROOM MESSENGER, lab, RT, psych nurse, social service technician, creamery worker, teacher, traffic control officer, dependency case manager)? Give summary @ -[No] Was smoking cessation discussed for >3mins.? @ -[No] Was critical care preformed (if so, how long)? @ -[No] Were there social determinants of health that impacted care today? How? (Homelessness, low income, unemployed, alcoholism, drug addiction, transportation, low edu. Level, literacy, decrease access to med. care, long-term, rehab)? @ -[No] Was there de-escalation of care discussed even if they declined (Discuss DNR or withdrawal of care, Hospice)? DNR status @ -[No] What co-morbidities impacted this encounter? (DM, HTN, Smoking, COPD, CAD, Cancer, CVA, ARF, Chemo, Hep., AIDS, mental health diagnosis, sleep apnea, morbid obesity)? @ -[None] Was patient admitted / discharged? Hospital course, mention meds given and route, prescriptions, significant lab abnormalities, going to OR and other pertinent info. @ -[See above Undiagnosed new problem with uncertain prognosis? @ -[No] Drug Therapy requiring intensive monitoring for toxicity (Heparin, Nitro, Insulin, Cardizem)? @ -[No] Were any procedures done? @ -[No] Diagnosis/symptom? @ -[Acute headache Acute, or Chronic, or Acute on Chronic? @ -[Acute Uncomplicated (without systemic symptoms) or Complicated (systemic symptoms)? @ -[Uncomplicated Side effects of treatment? @ -[No] Exacerbation, Progression, or Severe Exacerbation? @ -[No] Poses a threat to life or bodily function? How? (Chest pain, [place], [place], pneumonia, PE, COPD, DKA, ARF, appy, cholecystitis, CVA, Diverticulitis, Homicidal, Suicidal, threat to staff... and all critical care pts) @ -[No] - Lab Data Result diagrams: 09/28/23 04:13 09/28/23 04:13 Lab Results 09/28/23 09/28/23 09/28/23 Range/Units 04:13 04:13 04:13 WBC 13.0 H (3.8-10.6) k/uL RBC 4.71 (3.80-5.40) m/uL Hgb 13.9 (11.4-16.0) gm/dL Hct 41.4 (34.0-46.0) % MCV 88.0 (80.0-100.0) fL MCH 29.6 (25.0-35.0) pg MCHC 33.6 (31.0-37.0) g/dL RDW 12.8 (11.5-15.5) % Plt Count 239 (150-450) k/uL MPV 7.8 Neutrophils % 75 % Lymphocytes % 18 % Monocytes % 3 % Eosinophils % 1 % Basophils % 0 % Neutrophils # 9.8 H (1.3-7.7) k/uL Lymphocytes # 2.4 (1.0-4.8) k/uL Monocytes # 0.4 (0-1.0) k/uL Eosinophils # 0.2 (0-0.7) k/uL Basophils # 0.0 (0-0.2) k/uL Sodium 141 (137-145) mmol/L Potassium 3.8 (3.5-5.1) mmol/L Chloride 111 H (98-107) mmol/L Carbon Dioxide 20 L (22-30) mmol/L Anion Gap 10 mmol/L BUN 8 (7-17) mg/dL Creatinine 0.66 (0.52-1.04) mg/dL Est GFR (CKD-EPI)AfAm >90 (>60 ml/min/1.73 sqM) Est GFR (CKD-EPI)NonAf >90 (>60 ml/min/1.73 sqM) Glucose 96 (74-99) mg/dL Calcium 9.5 (8.4-10.2) mg/dL Total Bilirubin 0.6 (0.2-1.3) mg/dL AST 26 (14-36) U/L ALT 21 (4-34) U/L Alkaline Phosphatase 66 (38-126) U/L C-Reactive Protein <0.5 (<1.0) mg/dL Total Protein 8.1 (6.3-8.2) g/dL Albumin 4.5 (3.5-5.0) g/dL Urine HCG, Qual Not Detected (Not Detectd) Disposition Clinical Impression: Headache Disposition: HOME SELF-CARE Condition: Good Instructions (If sedation given, give patient instructions): Acute Headache (ED) Prescriptions: predniSONE [Deltasone] 20 mg PO BID #8 tab Is patient prescribed a controlled substance at d/c from ED?: No Referrals: Alber Mohamud MD [Primary Care Provider] - 1-2 days
[2023-09-28] MEDS: SODIUM CHLORIDE 0.9% 500 ML 500 ML IV STA ×2 (04:23→08:06)
[2023-09-28 04:29] LABS: Basophils % (A) 0 %; Eosinophils # (A) 0.2 k/uL (0-0.7); Eosinophils % (A) 1 %; HCT 41.4 % (34.0-46.0); HGB 13.9 gm/dL (11.4-16.0); Lymphocytes # (A) 2.4 k/uL (1.0-4.8); Lymphocytes % (A) 18 %; MCH 29.6 pg (25.0-35.0); MCHC 33.6 g/dL (31.0-37.0); Mean Platelet Volume 7.8; Monocytes # (A) 0.4 k/uL (0-1.0); Monocytes % (A) 3 %; Neutrophils # (A) 9.8 k/uL (1.3-7.7); Neutrophils % (A) 75 %; Platelet Count 239 k/uL (150-450); RBC 4.71 m/uL (3.80-5.40); RDW 12.8 % (11.5-15.5)
[2023-09-28 04:38] LABS: ALT 21 U/L (4-34); AST 26 U/L (14-36); African American GFR (CKD) >90 (>60 ml/min/1.73 sqM); Albumin 4.5 g/dL (3.5-5.0); Alkaline Phosphatase 66 U/L (38-126); Anion Gap 10 mmol/L; Blood Urea Nitrogen 8 mg/dL (7-17); C Reactive Protein <0.5 mg/dL (<1.0); Calcium 9.5 mg/dL (8.4-10.2); Carbon Dioxide 20 mmol/L (22-30); Chloride 111 mmol/L (98-107); Glucose 96 mg/dL (74-99); Non-African American GFR(CKD) >90 (>60 ml/min/1.73 sqM); Potassium 3.8 mmol/L (3.5-5.1); Sodium 141 mmol/L (137-145); Total Bilirubin 0.6 mg/dL (0.2-1.3); Total Protein 8.1 g/dL (6.3-8.2)
[2023-09-28] MEDS: methylPREDNISolone SOD SUCCI 125 MG/2 ML VIAL IV STA (06:45)
[2023-09-28] MEDS: DIHYDROERGOTAMINE MESYLATE 1 MG/ML 1 ML AMP IM STA (06:49)
[2023-09-28] MEDS: SUMAtriptan succinate 6 MG/0.5 ML VIAL SQ STA (08:02)
[2023-09-28 08:03] VITALS: BP 128/96; PULSE 93
[2023-09-28] MEDS: METOCLOPRAMIDE 5 MG/ML 2 ML VIAL IVP STA (08:04)
[2023-09-28] MEDS: PROCHLORPERAZINE INJ 10 MG/2 ML VIAL IVP STA (08:57)
[2023-09-28] MEDS: MORPHINE SULFATE 4 MG/ML SYRINGE IVP STA (08:59)
== END 2023-09-28 09:57 | disposition home or self-care (01) ==
LOC: EC 03:44
DX: R51.9 Headache, unspecified (principal); Z90.49 Acquired absence of other specified parts of digestive tract; Z91.09 Other allergy status, other than to drugs and biological substances
CPT/HCPCS: 36415; 80053; 85025; 86140; 81025; 99284; 96374; 96375 ×6; 96376 ×2; 96361 ×2; 96372 ×2; J3030; J1110; J2270; J1200; J0780; J2765; J2930; J2405; J1885

== ENCOUNTER 2024-01-15 12:39 | Emergency (ER) | payer MEDICAID ==
[2024-01-15 13:21] VITALS: TEMP 98.6
--- NOTE | 2024-01-15 13:27 | ED ---
General Adult HPI - General Chief complaint: Allergic Reaction Stated complaint: Allergic Reaction Time Seen by Provider: 01/15/24 13:07 Source: patient Mode of arrival: ambulatory Limitations: no limitations - History of Present Illness Initial comments: Dictation was produced using [employer] dictation software. please excuse any grammatical, word or spelling errors. Chief Complaint: 23-year-old female with allergic reaction History of Present Illness: Patient 23-year-old female she had a outpatient CT scan. States that her CT scan had contrast dye. After the contrast that she started to break out into a rash and had some difficulty breathing. CT scan was performed at around 11 AM. Patient called her mom and her mom said continue maybe should go to the emergency department get checked out. Patient states that her rash has improved dramatically. She also does not have any shortness of breath. The ROS documented in this emergency department record has been reviewed and confirmed by me. Those systems with pertinent positive or negative responses have been documented in the HPI. All other systems are other negative and/or noncontributory. - Related Data Home Medications Medication Instructions Recorded Confirmed medroxyPROGESTERone [Depo-Provera] 150 mg IM Q84D 06/25/20 12/29/23 Ivabradine HCl [Corlanor] 5 mg PO BID 01/15/23 12/29/23 Montelukast Sodium 10 mg PO HS 01/15/23 12/29/23 Omeprazole [PriLOSEC] 20 mg PO BID 01/15/23 12/29/23 Copper 2mg Tablet 1 tab PO DAILY 07/11/23 12/29/23 Cyanocobalamin (Vitamin B-12) 1,000 mcg PO DAILY 07/11/23 12/29/23 [Vitamin B-12] Naltrexone HCl [Lotrexone] 4.5 mg PO DAILY 10/12/23 12/29/23 buPROPion XL [Wellbutrin XL] 150 mg PO DAILY 10/12/23 12/29/23 Topiramate [Topamax] 50 mg PO DAILY 11/03/23 12/29/23 Allergies Allergy/AdvReac Type Severity Reaction Status Date / Time adhesive tape Allergy Rash/Hives Verified 12/29/23 10:19 immune globulin,gamma (IgG) AdvReac Unknown Verified 12/29/23 10:19 human Review of Systems ROS Statement: Those systems with pertinent positive or pertinent negative responses have been documented in the HPI. ROS Other: All systems not noted in ROS Statement are negative. Past Medical History Past Medical History: No Reported History Additional Past Medical History / Comment(s): OVARIAN CYST, RECENT RAPID HEART RATE, SOB, CHEST PAIN. POTS SYNDROME, fibroneuropathy, IVIG tx newly started 07/10/23 History of Any Multi-Drug Resistant Organisms: None Reported Past Surgical History: Adenoidectomy, Cholecystectomy, Orthopedic Surgery Additional Past Surgical History / Comment(s): left knee SX, right s/c infusaport inserted 09/30/23 Past Anesthesia/Blood Transfusion Reactions: No Reported Reaction, Family History of Problems w/ Anesthesia Additional Past Anesthesia/Blood Transfusion Reaction / Comment(s): MOM HAS PONV Past Psychological History: Anxiety Smoking Status: Never smoker - Past Family History Mother Family Medical History: No Reported History Additional Family Medical History / Comment(s): Hishimotos Father Family Medical History: Diabetes Mellitus, Hypertension General Exam - General Exam Comments Initial Comments: PHYSICAL EXAM: General Impression: Alert and oriented x3, not in acute distress HEENT: Normocephalic atraumatic, extra-ocular movements intact, pupils equal and reactive to light bilaterally, mucous membranes moist. Cardiovascular: Heart regular rate and rhythm Chest: Able to complete full sentences, no retractions, no tachypnea, clear to auscultation bilaterally Abdomen: abdomen soft, non-tender, non-distended, no organomegaly Musculoskeletal: Pulses present and equal in all extremities, no peripheral edema Motor: no focal deficits noted Neurological: CN II-XII grossly intact, no focal motor or sensory deficits noted Skin: Blotchy sporadic erythema of the skin Psych: Normal affect and mood Limitations: no limitations Course Vital Signs 01/15/24 12:54 Temperature 98.6 F Pulse Rate 104 H Respiratory 20 Rate Blood Pressure 115/80 O2 Sat by Pulse 100 Oximetry Medical Decision Making - Medical Decision Making Was pt. sent in by a medical professional or institution (, PA, PHARMACIST INTERN, urgent care, hospital, or residential...) When possible be specific @ -No Did you speak to anyone other than the patient for history (EMS, parent, family, police, friend...)? What history was obtained from this source @ -No Did you review nursing and triage notes (agree or disagree)? Why? @ -I reviewed and agree with nursing and triage notes Were old charts reviewed (outside hosp., previous admission, EMS record, old EKG, old radiological studies, urgent care reports/EKG's, residential records)? Report findings @ -No old charts were reviewed Differential Diagnosis (chest pain, altered mental status, abdominal pain women, abdominal pain men, vaginal bleeding, musculoskeletal, weakness, fever, dyspnea, syncope, headache, dizziness, GI bleed, back pain, seizure, CVA, palpatations, mental health)? @ -Anaphylaxis, allergic reaction, acute rash EKG interpreted by me (3pts min.). @ -None done X-rays interpreted by me (1pt min.). @ -None done CT interpreted by me (1pt min.). @ -None done U/S interpreted by me (1pt. min.). @ -None done What testing was considered but not performed or refused? (CT, X-rays, U/S, labs)? Why? @ -None What meds were considered but not given or refused? Why? @ -None Did you discuss the management of the patient with other professionals (professionals i.e. , PA, PHARMACIST INTERN, lab, RT, psych nurse, social services manager, fountain worker, teacher, railroad police officer, director of casework services)? Give summary @ -No Was smoking cessation discussed for >3mins.? @ -No Was critical care preformed (if so, how long)? @ -No Were there social determinants of health that impacted care today? How? (Homelessness, low income, unemployed, alcoholism, drug addiction, transportation, low edu. Level, literacy, decrease access to med. care, long term, rehab)? @ -No Was there de-escalation of care discussed even if they declined (Discuss DNR or withdrawal of care, Hospice)? DNR status @ -No What co-morbidities impacted this encounter? (DM, HTN, Smoking, COPD, CAD, Cancer, CVA, ARF, Chemo, Hep., AIDS, mental health diagnosis, sleep apnea, morbid obesity)? @ -None Was patient admitted / discharged? Hospital course, mention meds given and route, prescriptions, significant lab abnormalities, going to OR and other pertinent info. @ -23-year-old well-appearing female presents emergency department for allergic reaction. Symptoms have resolved since she initially had her symptoms. She did show me pictures of her rash when it was at its worst immediately after the scan. Her rash seems to be significantly improved. Vital signs stable. Patient has no clinical presentation to suggest anaphylaxis. Patient given Decadron and antihistamines. Advised follow-up with primary care doctor. Undiagnosed new problem with uncertain prognosis? @ -No Drug Therapy requiring intensive monitoring for toxicity (Heparin, Nitro, Insulin, Cardizem)? @ -No Were any procedures done? @ -No Diagnosis/symptom? Acute, or Chronic, or Acute on Chronic? Uncomplicated (without systemic symptoms) or Complicated (systemic symptoms)? @ -Allergic reaction Side effects of treatment? @ -No Exacerbation, Progression, or Severe Exacerbation? @ -No Poses a threat to life or bodily function? How? (Chest pain, [place], [place], pneumonia, PE, COPD, DKA, ARF, appy, cholecystitis, CVA, Diverticulitis, Homicidal, Suicidal, threat to staff... and all critical care pts) @ -No Disposition Clinical Impression: Allergic reaction Disposition: HOME SELF-CARE Condition: Fair Instructions (If sedation given, give patient instructions): General Allergic Reaction (ED) Is patient prescribed a controlled substance at d/c from ED?: No Referrals: Alber Mohamud MD [Primary Care Provider] - 1-2 days Time of Disposition: 13:27
[2024-01-15] MEDS: diphenhydrAMINE 25 MG CAP PO STA (13:45)
[2024-01-15] MEDS: FAMOTIDINE 20 MG TAB PO STA (13:46)
[2024-01-15] MEDS: dexAMETHasone 4 MG TAB PO STA (13:46)
[2024-01-15 14:13] VITALS: BP 136/78; PULSE 80; RESP 18
== END 2024-01-15 13:53 | disposition home or self-care (01) ==
LOC: EC 12:39
DX: T78.40XA Allergy, unspecified, initial encounter (principal); Z91.09 Other allergy status, other than to drugs and biological substances; Z88.8 Allergy status to other drugs, medicaments and biological substances
CPT/HCPCS: 99283; J8540

== ENCOUNTER → 2024-01-15 | Outpatient (CLI) | payer MEDICAID ==
--- NOTE | 2024-01-15 13:07 | CT ---
EXAMINATION TYPE: CT abdomen pelvis w con DATE OF EXAM: 01/15/2024 COMPARISON: 07/13/2023 HISTORY: 23-year-old female post prandial abdominal pain, eval for MALS. Nausea, vomiting, constipati on and weight loss. Hx of POTS. TECHNIQUE: Contiguous axial scanning of the abdomen and pelvis following administration of 100 ml Iso shivani 300 IV contrast. Delayed images through the kidneys and coronal/sagittal reconstructions perform ed. CT DLP: 737 mGycm Automated exposure control for dose reduction was used. FINDINGS: Heart normal size without pericardial effusion. Lung bases clear without pleural effusion. Focal fat along the anterior falciform ligament. No other focal liver lesion or biliary ductal dilata tion. Portal venous system is patent. Cholecystectomy clips. Adrenal glands, kidneys, spleen, and pancreas within normal limits. No abnormal narrowing or hairpin turn is noted of the celiac axis. However, we do note a diminished aortic-SMA distance of 5 mm and narrowed appearance to the third por tion of the duodenum as it courses between the 2 vascular structures (normal 10 to 34 mm). No dilated small bowel, free fluid, or free air. No mesenteric or retroperitoneal lymphadenopathy. Normal appendix noted. Oral contrast extends to the proximal sigmoid colon. Mild scattered stool. No pericolonic inflammatory change. Bladder urine distended. Uterus anteverted. Follicular changes in the ovaries. No abnormal fluid valente ection in the pelvis or pelvic lymphadenopathy. Bones: No osseous destructive process. IMPRESSION: 1. WHILE THERE ARE NO ANATOMIC FEATURES OF MEDIAN ARCUATE LIGAMENT SYNDROME ON THE PRESENT EXAM, the aortic-SMA distance is narrowed to 5 mm and the third portion of the duodenum is flattened as it cour ses between these 2 vascular structures. Findings may be seen in the setting of superior mesenteric a rtery syndrome. Clinically correlate. 2. Status post cholecystectomy.
== END | disposition home or self-care (01) ==
LOC: RADPROMAIN 10:05
PROVIDERS: ATTEND Internal Medicine
DX: R10.84 Generalized abdominal pain (principal); Z90.49 Acquired absence of other specified parts of digestive tract
CPT/HCPCS: 74177; J1642; Q9967

== ENCOUNTER → 2024-01-30 | Outpatient (CLI) | payer MEDICAID ==
[2024-01-30 13:05] LABS: Basophils # (A) 0.03 X 10*3/uL (0.00-0.10); Basophils % (A) 0.6 %; Eosinophils # (A) 0.13 X 10*3/uL (0.04-0.35); Eosinophils % (A) 2.5 %; HCT 46.5 % (37.2-46.3); HGB 15.2 g/dL (12.0-15.0); Lymphocytes % (A) 46.9 %; MCH 28.8 pg (27.0-32.0); MCHC 32.7 g/dL (32.0-37.0); MCV 88.2 FL (80.0-97.0); Mean Platelet Volume 10.7 FL (9.5-12.2); Monocytes # (A) 0.29 X 10*3/uL (0.20-1.00); Monocytes % (A) 5.7 %; NRBC Per 100 WBC 0 X 10*3/uL (0.00-0.01); Neutrophils # (A) 2.26 X 10*3/uL (1.80-7.70); Neutrophils % (A) 44.1 %; Platelet Count 253 X 10*3/uL (140-440); RBC 5.27 X 10*6/uL (4.10-5.20); RDW 12.5 % (11.5-14.5); WBC 5.12 X 10*3/uL (4.50-10.00)
[2024-01-30 13:18] LABS: ALT 13 U/L (8-44); AST 18 U/L (13-35); Albumin 5.3 g/dL (3.8-4.9); Albumin/Globulin Ratio 2.04 Ratio (1.60-3.17); Alkaline Phosphatase 65 U/L (41-126); Blood Urea Nitrogen 12.5 mg/dL (9.0-27.0); Calcium 10.3 mg/dL (8.7-10.3); Carbon Dioxide 17.3 mmol/L (21.6-31.8); Chloride 108 mmol/L (96-109); Globulin 2.6 g/dL (1.6-3.3); Glucose 90 mg/dL (70-110); Potassium 4.1 mmol/L (3.5-5.5); Sodium 141 mmol/L (135-145); Total Bilirubin 0.9 mg/dL (0.3-1.2); Total Protein 7.9 g/dL (6.2-8.2)
== END | disposition home or self-care (01) ==
LOC: LABWHC1 10:09
PROVIDERS: ATTEND Internal Medicine Geriatric Medicine
DX: R21 Rash and other nonspecific skin eruption (principal)
CPT/HCPCS: 36415; 80053; 83520; 85025

== ENCOUNTER → 2024-02-03 | Outpatient (CLI) | payer MEDICAID ==
--- NOTE | 2024-02-03 22:25 | CT ---
EXAMINATION TYPE: CT angio abdomen pelvis CT DLP: 482.1 mGycm, Automated exposure control for dose reduction was used. DATE OF EXAM: 02/03/2024 8:34 AM COMPARISON: CT abdomen pelvis 01/15/2024. . CLINICAL INDICATION:Female, 24 years old with history of K55.1 CHRONIC VASCULAR DISORDERS OF INTESTIN E; vascular disorder TECHNIQUE: Multiple thin slice sub-millimeter images were obtained through the abdomen and pelvis bef ore and after the uneventful administration of 100 mL Isovue 300 intravenously. 3-D reconstructed i mages and maximum intensity projection images were obtained of the arterial vasculature. FINDINGS: CTA Abdomen and pelvis: The abdominal aorta does not demonstrate aneurysmal dilatation. No evidence f or intramural hematoma or dissection. No atherosclerotic plaquing identified. The origins of the supe rior mesenteric artery, renal arteries, inferior mesenteric artery, and celiac axis are patent. Both renal veins are patent. There is some mild narrowing of the left renal vein as it passes between the SMA and aorta without significant upstream dilatation. No anatomic features of median arcuate ligamen t syndrome. Normal aortomesenteric angle of 33 degrees (normal 28-65 degrees). Narrowed aortomesenter ic distance of 6 mm (normal 2-8 mm). VISCERA: The liver, spleen, adrenal glands, kidneys, pancreas, and gallbladder are not optimally enha nced due the arterial phase utilized. LIVER: Focal fatty alteration along the anterior falciform ligament redemonstrated. GALLBLADDER AND BILE DUCTS: Postcholecystectomy. No biliary ductal dilatation. PANCREAS: Unremarkable. SPLEEN: Unremarkable. ADRENAL GLANDS: Unremarkable. KIDNEYS AND URETERS: No evidence of hydronephrosis or renal calculus. The ureters are unremarkable. PELVIS BLADDER: Underdistended, limiting evaluation. REPRODUCTIVE: Unremarkable. ABDOMEN & PELVIS STOMACH AND BOWEL: Stomach and duodenum are unremarkable. No focal bowel wall thickening or surroundi ng inflammatory changes. There is again flattening of the third portion the duodenum as it courses be tween the aorta and SMA. No significant upstream dilatation of the duodenum. No evidence of bowel obs truction. PERITONEUM: No evidence of pneumoperitoneum or free fluid. VASCULATURE: No evidence of aortic aneurysm. MUSCULOSKELETAL: No acute osseous abnormalities. Bilateral pars defects involving L5 without spondylo listhesis. LYMPH NODES: No gross evidence for lymphadenopathy. SOFT TISSUE/ABDOMINAL WALL: Thickening of the superficial aspect of the left labia majora. IMPRESSION 1. Similar narrowed aortomesenteric distance of 6 mm. Normal aortomesenteric angle of 33 degrees. Fin dings raise the possibility of superior mesenteric artery syndrome. Correlate clinically. 2. Post cholecystectomy.
== END | disposition home or self-care (01) ==
LOC: RADCTMAIN 08:03
PROVIDERS: ATTEND Internal Medicine Geriatric Medicine
DX: K55.1 Chronic vascular disorders of intestine (principal); Z90.49 Acquired absence of other specified parts of digestive tract
CPT/HCPCS: 74174; Q9967

== ENCOUNTER → 2024-08-01 | Outpatient (CLI) | payer MEDICAID ==
--- NOTE | 2024-08-01 10:05 | FL ---
EXAMINATION TYPE: FL UGI DATE OF EXAM: 08/01/2024 8:49 AM COMPARISON: CLINICAL INDICATION:Female, 24 years old with history of R10.84 GENERALIZED ABDOMINAL PAIN; TECHNIQUE: The procedure was explained and patient history elicited. All patient questions were ans wered prior to start of procedure. A basketball assembler radiograph of the abdomen was also reviewed. Multiple flu oroscopic spot images of the esophagus, stomach and duodenum were obtained following ingestion of liq uid barium and EZ-gas crystals. Fluoroscopic time:1.28 min Fluoroscopic images:0 Radiographs taken: 79 DAP: not reported [id number] FINDINGS: Upper GI examination: The basketball assembler abdominal radiograph demonstrates a normal bowel gas pattern without dilated loops of small or large bowel. There is no evidence for organomegaly or pneumoperitoneum. No abnormal calcificat ions. The visualized osseous structures are intact. [id number] partially visualized. IMPRESSION: Normal upper gastrointestinal examination. [facility], , 08/01/2024 10:03 AM
== END | disposition home or self-care (01) ==
LOC: RADFLMAIN 07:43
PROVIDERS: ATTEND Surgery Vascular Surgery
DX: R10.84 Generalized abdominal pain (principal); R11.0 Nausea; K55.1 Chronic vascular disorders of intestine
CPT/HCPCS: 74240